=== PATIENT | female | born 1980 | race Caucasian/White ===

== ENCOUNTER 2016-12-04 10:39 | Emergency (ER) | payer OTHER ==
[2016-12-04] MEDS ORDERED: KETOROLAC 60 MG/2 ML VIAL IM STA (11:25)
--- NOTE | 2016-12-04 11:43 | ED ---
Lower Extremity Injury HPI - General Chief Complaint: Extremity Injury, Lower Stated Complaint: fall/ right leg pain Time Seen by Provider: 12/04/16 10:59 Source: patient, RN notes reviewed Mode of arrival: ambulatory Limitations: no limitations - History of Present Illness Initial Comments: 36-year-old female presents to the emergency department with a chief complaint of right leg pain. Patient states that he tripped and fell last night and had pain to the right lower leg. Patient states since she's been feeling cracking popping noise into her right leg. Patient states she has tenderness along the right lateral aspect. Patient states it hurts to walk. Patient states that she is concerned so she thought that she should be evaluated. Patient is denying any other symptoms at this time. Patient denies any recent fever, chills , shortness of breath, chest pain, back pain, abdominal pain, nausea vomiting, numbness or tingling, dysuria or hematuria, constipation or diarrhea, headaches or visual changes, or any other current symptoms. - Related Data Home Medications Medication Instructions Recorded Confirmed Cephalexin [Keflex] 500 mg PO Q8HR 01/28/15 01/28/15 Levothyroxine Sodium [Synthroid] 75 mcg PO DAILY 01/28/15 01/28/15 Sertraline [Zoloft] 200 mg PO QAM 01/28/15 01/28/15 metFORMIN HCL [metFORMIN HCL ER] 1,000 mg PO AC-BID 01/28/15 01/28/15 Previous Rx's Medication Instructions Recorded HYDROcodone/APAP 5-325MG [Philip 1 each PO BID PRN #30 tab 01/31/15 5-325] Insulin NPH/Reg Insulin 70/30 30 unit SQ AC-BRKFST #2 vial 01/31/15 [humuLIN 70/30 VIAL] Sertraline [Zoloft] 200 mg PO QAM tab 01/31/15 Ibuprofen [Motrin] 600 mg PO Q6HR PRN #20 tab 12/04/16 Allergies Allergy/AdvReac Type Severity Reaction Status Date / Time adhesive AdvReac Unknown Verified 01/28/15 16:52 Review of Systems ROS Statement: Those systems with pertinent positive or pertinent negative responses have been documented in the HPI. ROS Other: All systems not noted in ROS Statement are negative. Past Medical History Past Medical History: Diabetes Mellitus, Pulmonary Embolus (PE), Thyroid Disorder Additional Past Medical History / Comment(s): morbid obesity, ABD HERNIA History of Any Multi-Drug Resistant Organisms: None Reported Past Surgical History: Section Additional Past Surgical History / Comment(s): 2 c-sections Past Anesthesia/Blood Transfusion Reactions: Motion Sickness Additional Past Anesthesia/Blood Transfusion Reaction / Comment(s): CLAUSTERPHOBIA Past Psychological History: Anxiety, Depression Smoking Status: Current every day smoker Past Alcohol Use History: Occasional Past Drug Use History: None Reported - Past Family History Mother Additional Family Medical History / Comment(s): MIGRAINES, HAS WATER ON HER BRAIN Father History Unknown: Yes Additional Family Medical History / Comment(s): PTS DAD WHEN SHE WAS 13 General Exam - General Exam Comments Initial Comments: General: The patient is awake and alert, in no distress, and does not appear acutely ill. Neck: The neck is supple, there is no tenderness. Cardiovascular: There is a regular rate and rhythm. No murmur, rub or gallop is appreciated. Respiratory: Lungs are clear to auscultation, respirations are non-labored, breath sounds are equal. No wheezes, stridor, rales, or rhonchi. Musculoskeletal: Sensation intact with full range of motion throughout right lower extremity. Fund motion of right ankle knee. Find motion of the right hip. Tenderness patient along the lateral aspect of the right lower extremity. No tenderness patient in the lumbar spine area. No bruising noted. Neurological: CN II-XII intact, There are no obvious motor or sensory deficits. Coordination appears grossly intact. Speech is normal. Skin: Skin is warm and dry and no rashes or lesions are noted. Psychiatric: Normal mood and affect. Limitations: no limitations Course Vital Signs 12/04/16 10:43 Temperature 98 F Pulse Rate 88 Respiratory 22 Rate Blood Pressure 150/87 O2 Sat by Pulse 98 Oximetry Medical Decision Making - Medical Decision Making 36-year-old female presents emergency 5 chief complaint of right leg pain. At this time patient's x-rays are reviewed and negative. This time we discussed continuing to ice Motrin Tylenol. We discussed return parameters and follow-up and all the patient's questions. She stated that she understood and she is given plan. She will be discharged home. - Radiology Data Radiology results: report reviewed, image reviewed Disposition Clinical Impression: Sprain of right hip Disposition: HOME SELF-CARE Condition: Stable Instructions: Hip Sprain (ED) Additional Instructions: Please use medication as discussed. Please follow up with family doctor if symptoms have not improved over the next two days. Please return to the emergency room if your symptoms increase or worsen or for any other concerns. Prescriptions: Ibuprofen [Motrin] 600 mg PO Q6HR PRN #20 tab PRN Reason: Pain Referrals: Lg Moran MD [Primary Care Provider] - 1-2 days Time of Disposition: 12:17
--- NOTE | 2016-12-04 11:54 | XR ---
EXAMINATION TYPE: XR lumbar spine 2 or 3V DATE OF EXAM: 12/04/2016 COMPARISON: 06/24/2015 HISTORY: Pain TECHNIQUE: Three-view lumbar spine FINDINGS: There 5 lumbar-type vertebral bodies. The pedicles are intact. Minimal grade 1 spondylolist hesis of L4 anterior and L5 is present. Disc heights are preserved. Vertebral body heights are preser lon. IMPRESSION: 1. Mild grade 1 spondylolisthesis of L4 anterior to L5. 2. Findings are stable from 06/24/2015. 3. No acute abnormality.
--- NOTE | 2016-12-04 11:57 | XR ---
EXAMINATION TYPE: XR knee complete RT DATE OF EXAM: 12/04/2016 COMPARISON: NONE HISTORY: Pain, fall TECHNIQUE: Three-view right knee FINDINGS: No acute fractures are evident. Soft tissues are normal. No joint effusion is evident. IMPRESSION: 1. Normal three-view right knee. Follow-up exam can be performed 7-10 days from acute trauma for con tinued pain.
--- NOTE | 2016-12-04 11:57 | XR ---
EXAMINATION TYPE: XR femur RT DATE OF EXAM: 12/04/2016 COMPARISON: NONE HISTORY: Fall, pain TECHNIQUE: 2 view right femur FINDINGS: Osteoarthritic degenerative changes present at the right hip. Acetabular spurring is presen t. The femoral head articulates with the acetabulum. No acute fractures evident. IMPRESSION: 1. Degenerative changes right hip. 2. No acute osseous abnormality.
[2016-12-04 12:27] VITALS: BP 161/84; PULSE 75; RESP 20; TEMP 97.8
== END 2016-12-04 12:27 | disposition home or self-care (01) ==
LOC: EC 10:39
DX: S73.101A Unspecified sprain of right hip, initial encounter (principal); E11.9 Type 2 diabetes mellitus without complications; E07.9 Disorder of thyroid, unspecified; F32.9 Major depressive disorder, single episode, unspecified; F17.200 Nicotine dependence, unspecified, uncomplicated; Z91.048 Other nonmedicinal substance allergy status; Z79.84 Long term (current) use of oral hypoglycemic drugs; Z79.899 Other long term (current) drug therapy; W01.0XXA Fall on same level from slipping, tripping and stumbling without subsequent striking against object, initial encounter
CPT/HCPCS: 99283; 96372; 72100; 73552; 73562; J1885

== ENCOUNTER → 2017-10-10 | Outpatient (CLI) | payer OTHER ==
[2017-10-10 18:55] LABS: Hemoglobin A1C 13.7 % (4.0-6.0)
== END | disposition home or self-care (01) ==
LOC: LABWHC1 08:44
PROVIDERS: ATTEND Internal Medicine
DX: E11.9 Type 2 diabetes mellitus without complications (principal)
CPT/HCPCS: 36415; 80061; 83036; 84439; 84443

== ENCOUNTER → 2018-01-17 | Outpatient (CLI) | payer OTHER ==
[2018-01-17 08:09] LABS: T4, Free (Free Thyroxine) 0.92 ng/dL (0.78-2.19)
[2018-01-17 12:15] LABS: Hemoglobin A1C 7.9 % (4.0-6.0)
== END | disposition home or self-care (01) ==
LOC: LABWHC1 07:22
PROVIDERS: ATTEND Internal Medicine
DX: E11.9 Type 2 diabetes mellitus without complications (principal)
CPT/HCPCS: 36415; 83036; 84439; 84443

== ENCOUNTER 2018-05-19 17:15 | Emergency (ER) | payer OTHER ==
[2018-05-19] MEDS ORDERED: ONDANSETRON 4 MG/2 ML VIAL IVP STA (17:52)
[2018-05-19] MEDS ORDERED: SODIUM CHLORIDE 0.9% 1,000 ML IV ONE (17:52)
[2018-05-19] MEDS ORDERED: KETOROLAC 30 MG/ML 1 ML VIAL IVP STA (17:52)
[2018-05-19] MEDS ORDERED: MORPHINE SULFATE 4 MG/ML SYRINGE IVP STA (17:52)
--- NOTE | 2018-05-19 18:13 | ED ---
General Adult HPI - General Chief complaint: Recheck/Abnormal Lab/Rx Stated complaint: blood sugar problems & hand injury Time Seen by Provider: 05/19/18 17:32 Source: patient Mode of arrival: wheelchair Limitations: no limitations - History of Present Illness Initial comments: 38-year-old female patient presents to the emergency department today with multiple complaints. Patient states that she has been dealing with the yeast infection for the last couple of weeks, states that she did take a dose of Diflucan a couple days ago, symptoms seem to have improved somewhat. Patient states that her couple of days ago she noticed pain and swelling to the right labia. States that today the area started to drain purulent foul-smelling fluid. States that the area is very painful makes it difficult to sit or walk. States that she has felt feverish and chilled, she has no documented temperatures. She states also that today her glucometer at home was reading an error which means her blood sugar is very high. She states that she has been out of her insulin since March. States she has been taking her metformin but that she's been mostly attempting to control her sugar with diet. Patient states she's been fasting for the last couple of days and eating only very small amounts. She states that couple of weeks ago she did fall down the stairs injuring her left hand and wrist. Patient states she is still having pain to the area. Patient states it hurts when she hyperextends the wrist. She denies any numbness or tingling. Denies any other injuries from the fall. She denies any hematuria, dysuria, urinary frequency, urinary urgency. She denies any nausea or vomiting. Patient denies any recent rash, shortness breath , chest pain, diarrhea, constipation, back pain, numbness, tingling, dizziness, weakness, headache, visual changes, or any other complaints. - Related Data Home Medications Medication Instructions Recorded Confirmed Levothyroxine Sodium [Synthroid] 75 mcg PO DAILY 01/28/15 05/19/18 metFORMIN HCL [metFORMIN HCL ER] 1,000 mg PO AC-BID 01/28/15 05/19/18 Cyclobenzaprine [Flexeril] 10 mg PO TID 05/19/18 05/19/18 Fluconazole [Diflucan] 150 mg PO ONCE 05/19/18 05/19/18 Omeprazole 40 mg PO DAILY 05/19/18 05/19/18 Allergies Allergy/AdvReac Type Severity Reaction Status Date / Time adhesive AdvReac Unknown Verified 05/19/18 18:23 Review of Systems ROS Statement: Those systems with pertinent positive or pertinent negative responses have been documented in the HPI. ROS Other: All systems not noted in ROS Statement are negative. Past Medical History Past Medical History: Diabetes Mellitus, Pulmonary Embolus (PE), Thyroid Disorder Additional Past Medical History / Comment(s): morbid obesity, ABD HERNIA History of Any Multi-Drug Resistant Organisms: None Reported Past Surgical History: Section Additional Past Surgical History / Comment(s): 2 c-sections Past Anesthesia/Blood Transfusion Reactions: Motion Sickness Additional Past Anesthesia/Blood Transfusion Reaction / Comment(s): CLAUSTERPHOBIA Past Psychological History: Anxiety, Depression Smoking Status: Current every day smoker Past Alcohol Use History: Occasional Past Drug Use History: None Reported - Past Family History Mother Additional Family Medical History / Comment(s): MIGRAINES, HAS WATER ON HER BRAIN Father History Unknown: Yes Additional Family Medical History / Comment(s): PTS DAD WHEN SHE WAS 13 General Exam Limitations: no limitations General appearance: alert, in no apparent distress, other (This is a well- developed, well-nourished adult female patient in no acute distress. Vital signs upon presentation are temperature 98.3F, pulse 119, respirations 18, blood pressure 161/91 9, pulse ox 96% on room air.) Eye exam: Present: normal appearance, PERRL, EOMI. Absent: scleral icterus, conjunctival injection, periorbital swelling ENT exam: Present: normal exam, normal oropharynx, mucous membranes moist Respiratory exam: Present: normal lung sounds bilaterally. Absent: respiratory distress, wheezes, rales, rhonchi, stridor Cardiovascular Exam: Present: normal rhythm, tachycardia, normal heart sounds. Absent: systolic murmur, diastolic murmur, rubs, gallop, clicks GI/Abdominal exam: Present: soft, normal bowel sounds. Absent: distended, tenderness, guarding, rebound, rigid Extremities exam: Present: full ROM, normal capillary refill, other (Skin to the left hand and wrist is pink, warm, and dry. Cap refills less than 3 seconds. Radial pulses 2+ and equal bilaterally. Patient does have some tenderness over the fourth and fifth MCP joints.). Absent: normal inspection, tenderness, pedal edema, joint swelling, calf tenderness Neurological exam: Present: alert, oriented X3, CN II-XII intact Psychiatric exam: Present: normal affect, normal mood Skin exam: Present: warm, dry, intact, normal color. Absent: rash Expanded Type of lesion: Present: abscess (There is large abscess over the right upper thigh, parent Octavio area extending up into the right labia. There is erythema. There is a central opening draining purulent foul-smelling fluid. There is central area of tissue necrosis. Area is very tender to touch.) Course Vital Signs 05/19/18 05/19/18 05/19/18 17:24 20:06 22:00 Temperature 98.3 F 98.1 F Pulse Rate 119 H 55 L 87 Respiratory 18 20 20 Rate Blood Pressure 161/99 108/70 133/78 O2 Sat by Pulse 96 100 96 Oximetry Medical Decision Making - Medical Decision Making 38-year-old female patient presented to the emergency department today for multiple complaints. Complaints include an elevated blood sugar, infection to the right groin, and left hand and wrist pain. Physical examination did reveal large abscess to the right upper thigh, perineal area, extending up to the right labia. There was a foul-smelling drainage. There was central area of necrosis. Labs reviewed and did reveal elevated white blood cell count of 14.4 , neutrophil count 12.1, sodium 129, chloride 94, carbon dioxide 17, anion gap of 18, glucose 581, acetone positive. Did perform x-ray of the left hand and wrist which were negative for any fractures. Did perform CT of the pelvis with contrast to further evaluate area of infection, this did reveal subcutaneous fat stranding on the upper thigh extending up into the labia, lower extent of the infection was not visualized on the CT. There was subcutaneous fat. Given that white blood cell count, amount of pain, and findings on CT there is concern for necrotizing fasciitis. Patient was started on vancomycin and Zosyn. We did start insulin drip for DKA. Patient will be transferred to [facility] for further evaluation of this infection and surgical consult. Patient was updated regarding all findings and is agreeable. - Lab Data Result diagrams: 05/19/18 18:36 05/19/18 18:36 Lab Results 05/19/18 05/19/18 05/19/18 Range/Units 18:36 18:36 19:06 WBC 14.4 H (3.8-10.6) k/uL RBC 4.25 (3.80-5.40) m/uL Hgb 11.8 (11.4-16.0) gm/dL Hct 38.7 (34.0-46.0) % MCV 91.1 (80.0-100.0) fL MCH 27.9 (25.0-35.0) pg MCHC 30.6 L (31.0-37.0) g/dL RDW 13.8 (11.5-15.5) % Plt Count 355 (150-450) k/uL Neutrophils % 84 % Lymphocytes % 9 % Monocytes % 5 % Eosinophils % 1 % Basophils % 0 % Neutrophils # 12.1 H (1.3-7.7) k/uL Lymphocytes # 1.2 (1.0-4.8) k/uL Monocytes # 0.7 (0-1.0) k/uL Eosinophils # 0.2 (0-0.7) k/uL Basophils # 0.0 (0-0.2) k/uL Hypochromasia Moderate Sodium 129 L (137-145) mmol/L Potassium 4.3 (3.5-5.1) mmol/L Chloride 94 L (98-107) mmol/L Carbon Dioxide 17 L (22-30) mmol/L Anion Gap 18 mmol/L BUN 11 (7-17) mg/dL Creatinine 1.02 (0.52-1.04) mg/dL Est GFR (CKD-EPI)AfAm 82 (>60 ml/min/1.73 sqM) Est GFR (CKD-EPI)NonAf 71 (>60 ml/min/1.73 sqM) Glucose 581 H* (74-99) mg/dL POC Glucose (mg/dL) 575 H (75-99) mg/dL POC Glu Tugger Operator ID Jyotsna [place] Calcium 9.0 (8.4-10.2) mg/dL Total Bilirubin 0.7 (0.2-1.3) mg/dL AST 17 (14-36) U/L ALT 11 (9-52) U/L Alkaline Phosphatase 141 H (38-126) U/L Total Protein 6.5 (6.3-8.2) g/dL Albumin 3.2 L (3.5-5.0) g/dL Acetone, Qual Positive (Negative) 05/19/18 Range/Units 21:05 WBC (3.8-10.6) k/uL RBC (3.80-5.40) m/uL Hgb (11.4-16.0) gm/dL Hct (34.0-46.0) % MCV (80.0-100.0) fL MCH (25.0-35.0) pg MCHC (31.0-37.0) g/dL RDW (11.5-15.5) % Plt Count (150-450) k/uL Neutrophils % % Lymphocytes % % Monocytes % % Eosinophils % % Basophils % % Neutrophils # (1.3-7.7) k/uL Lymphocytes # (1.0-4.8) k/uL Monocytes # (0-1.0) k/uL Eosinophils # (0-0.7) k/uL Basophils # (0-0.2) k/uL Hypochromasia Sodium (137-145) mmol/L Potassium (3.5-5.1) mmol/L Chloride (98-107) mmol/L Carbon Dioxide (22-30) mmol/L Anion Gap mmol/L BUN (7-17) mg/dL Creatinine (0.52-1.04) mg/dL Est GFR (CKD-EPI)AfAm (>60 ml/min/1.73 sqM) Est GFR (CKD-EPI)NonAf (>60 ml/min/1.73 sqM) Glucose (74-99) mg/dL POC Glucose (mg/dL) 557 H (75-99) mg/dL POC Glu Tugger Operator ID Arft, Ramakrishna Calcium (8.4-10.2) mg/dL Total Bilirubin (0.2-1.3) mg/dL AST (14-36) U/L ALT (9-52) U/L Alkaline Phosphatase (38-126) U/L Total Protein (6.3-8.2) g/dL Albumin (3.5-5.0) g/dL Acetone, Qual (Negative) - Radiology Data Radiology results: report reviewed, image reviewed CT pelvis with contrast was obtained. Report was reviewed in its entirety. There is soft tissue air bubbles and fat stranding in the medial upper right thigh extending to the right side labia consistent with inflammatory phlegmon and infectious process. No drainable fluid collection. The lower extent of this is not demonstrated on this exam. Broad-based large lower abdominal ventral hernia. Dilated urinary bladder suggestive of chronic bladder outlet obstruction Complete left wrist x-ray was obtained, 4 views, there is no fracture or dislocation. Joint spaces are fairly normal. There is no erosions. Impression by Dr. Clancy shows negative left wrist exam. No fracture seen 3 views of the left hand are obtained. These no fracture or dislocation. Metacarpals are intact. Joint spaces are fairly normal. There are no erosions. Impression by Dr. Clancy shows negative left hand exam. No sign of inflammatory arthritis Disposition Clinical Impression: DKA (diabetic ketoacidoses), Necrotizing fasciitis Disposition: OTHER INSTITUTION NOT DEFINED Condition: Serious Referrals: Carmelita Olivas MD [Primary Care Provider] - 1-2 days - Out of Hospital Transfer - Req. Specs Out of Hospital Transfer - Requested Specifics: Other Emergency Center ([facility])
--- NOTE | 2018-05-19 18:27 | XR ---
EXAMINATION TYPE: XR wrist complete LT DATE OF EXAM: 05/19/2018 COMPARISON: NONE HISTORY: Wrist pain TECHNIQUE: 4 views FINDINGS: I see no fracture nor dislocation. Joint spaces are fairly normal. There are no erosions. IMPRESSION: Negative left wrist exam. No fracture seen.
--- NOTE | 2018-05-19 18:28 | XR ---
EXAMINATION TYPE: XR hand complete LT DATE OF EXAM: 05/19/2018 COMPARISON: NONE HISTORY: Pain TECHNIQUE: 3 views FINDINGS: I see no fracture nor dislocation. Metacarpals are intact. Joint spaces are fairly normal. There are no erosions. IMPRESSION: Negative left hand exam. No sign of inflammatory arthritis.
[2018-05-19] MEDS ORDERED: VANCOMYCIN IV PER PHARMACY 1 EACH MISC MISCELLANE PRN (18:55)
[2018-05-19] MEDS ORDERED: VANCOMYCIN 2,250 MG in SODIUM CHLORIDE 0.9% 500 ML 500 ML IVPB STA (18:59)
[2018-05-19 19:06] LABS: Glucose,Whole Blood 575 mg/dL (75-99)
[2018-05-19] MEDS ORDERED: INSULIN ASPART 100 UNIT/ML 1 ML 10 ML VIAL SQ STA (19:07)
[2018-05-19 19:32] LABS: Basophils % (A) 0 %; Eosinophils # (A) 0.2 k/uL (0-0.7); Eosinophils % (A) 1 %; HCT 38.7 % (34.0-46.0); HGB 11.8 gm/dL (11.4-16.0); Hypochromasia Moderate; Lymphocytes # (A) 1.2 k/uL (1.0-4.8); Lymphocytes % (A) 9 %; MCH 27.9 pg (25.0-35.0); MCHC 30.6 g/dL (31.0-37.0); MCV 91.1 fL (80.0-100.0); Mean Platelet Volume 8.4; Monocytes # (A) 0.7 k/uL (0-1.0); Monocytes % (A) 5 %; Neutrophils # (A) 12.1 k/uL (1.3-7.7); Neutrophils % (A) 84 %; Platelet Count 355 k/uL (150-450); RBC 4.25 m/uL (3.80-5.40); RDW 13.8 % (11.5-15.5); WBC 14.4 k/uL (3.8-10.6)
[2018-05-19 19:39] LABS: ALT 11 U/L (9-52); AST 17 U/L (14-36); Albumin 3.2 g/dL (3.5-5.0); Alkaline Phosphatase 141 U/L (38-126); Anion Gap 18 mmol/L; Blood Urea Nitrogen 11 mg/dL (7-17); Carbon Dioxide 17 mmol/L (22-30); Chloride 94 mmol/L (98-107); Potassium 4.3 mmol/L (3.5-5.1); Sodium 129 mmol/L (137-145); Total Bilirubin 0.7 mg/dL (0.2-1.3); Total Protein 6.5 g/dL (6.3-8.2)
[2018-05-19] MEDS ORDERED: SODIUM CHLORIDE 0.9% 500 ML 500 ML IV ONE (19:44)
[2018-05-19 19:46] LABS: Glucose 581 mg/dL (74-99)
[2018-05-19 20:08] VITALS: RESP 20; TEMP 98.1
[2018-05-19] MEDS ORDERED: NALOXONE 0.4 MG/ML 1 ML VIAL IV PRN (20:15)
[2018-05-19] MEDS ORDERED: ACETAMINOPHEN TAB 325 MG TAB PO PRN (20:15)
[2018-05-19] MEDS ORDERED: MORPHINE SULFATE 4 MG/ML SYRINGE IV PRN (20:15)
[2018-05-19] MEDS ORDERED: ONDANSETRON 4 MG/2 ML VIAL IVP PRN (20:15)
[2018-05-19 21:06] LABS: Glucose,Whole Blood 557 mg/dL (75-99)
[2018-05-19] MEDS ORDERED: Magnesium Replacement Protocol 1 EACH MISC MISCELLANE PRN (21:31)
[2018-05-19] MEDS ORDERED: INSULIN REGULAR BOLUS (FROM DRIP BAG) IV ONE (21:31)
[2018-05-19] MEDS ORDERED: Potassium Replacement Protocol 1 EACH MISC MISCELLANE PRN (21:31)
--- NOTE | 2018-05-19 21:32 | CT ---
EXAMINATION TYPE: CT pelvis w con DATE OF EXAM: 05/19/2018 COMPARISON: None HISTORY: perineal abscess CT DLP: 1684 mGycm Automated exposure control for dose reduction was used. CONTRAST: Performed with IV Contrast, patient injected with 100 mL of Isovue 300. FINDINGS: Images were obtained from the iliac crests to the floor the pelvis with intravenous contrast. There is soft tissue air in the subcutaneous fat involving the medial right upper thigh extending to the labia on the right side. The lower extent of the soft tissue air is not demonstrated. There is fa t stranding associated with the soft tissue air bubbles. There is no drainable fluid collection. There is anterior abdominal wall hernia with panniculus and intestines extending inferiorly to the pu bic symphysis. There is no inguinal hernia. There is no free fluid in the pelvis. Bladder distends sm oothly. Urinary bladder is dilated and measures 18.7 cm in length. I see no bony destructive process. The pelvic ring is intact. IMPRESSION: THERE IS SOFT TISSUE AIR BUBBLES AND FAT STRANDING IN THE MEDIAL UPPER RIGHT THIGH EXTENDING TO THE R IGHT SIDE LABIA CONSISTENT WITH INFLAMMATORY PHLEGMON AND INFECTIOUS PROCESS. NO DRAINABLE FLUID NIDIA ECTION. THE LOWER EXTENT OF THIS IS NOT DEMONSTRATED ON THIS EXAM. BROAD-BASED LARGE LOWER ABDOMINAL VENTRAL HERNIA. DILATED URINARY BLADDER IS SUGGESTIVE OF CHRONIC BLADDER OUTLET OBSTRUCTION.
[2018-05-19] MEDS ORDERED: SODIUM CHLORIDE 0.9% 1,000 ML IV SCH (21:45)
[2018-05-19] MEDS ORDERED: D5-0.45% NACL WITH KCL 20MEQ/L 1,000 ML IV SCH (21:45)
[2018-05-19] MEDS ORDERED: CYCLOBENZAPRINE 10 MG TAB PO SCH (22:00)
[2018-05-19] MEDS ORDERED: PIPERACILLIN-TAZOBACTAM 3.375 GM in SODIUM CHLORIDE 0.9% 100 ML IVPB STA (22:16)
[2018-05-19] MEDS ORDERED: INSULIN REGULAR 100 UNIT in SODIUM CHLORIDE 0.9% 100 ML IV SCH (22:30)
[2018-05-19 23:15] VITALS: BP 133/78; PULSE 87
[2018-05-20] MEDS ORDERED: NON-FORMULARY DRUG (Omeprazole [Omeprazole] 40 MG) PO SCH (09:00)
[2018-05-20] MEDS ORDERED: LEVOTHYROXINE 75 MCG TAB PO SCH (09:00)
[2018-05-20] MEDS ORDERED: VANCOMYCIN 2,500 MG in SODIUM CHLORIDE 0.9% 500 ML 500 ML IVPB SCH (10:00)
== END 2018-05-19 23:21 | disposition other institution (70) ==
LOC: EC 17:15
DX: E11.10 Type 2 diabetes mellitus with ketoacidosis without coma (principal); M72.6 Necrotizing fasciitis; M25.532 Pain in left wrist; M79.642 Pain in left hand; D72.829 Elevated white blood cell count, unspecified; E07.9 Disorder of thyroid, unspecified; F17.200 Nicotine dependence, unspecified, uncomplicated; E66.01 Morbid (severe) obesity due to excess calories; Z68.44 Body mass index [BMI] 60.0-69.9, adult; Z79.84 Long term (current) use of oral hypoglycemic drugs; Z79.899 Other long term (current) drug therapy; Z91.048 Other nonmedicinal substance allergy status; W10.9XXA Fall (on) (from) unspecified stairs and steps, initial encounter
CPT/HCPCS: 36415; 80053; 82009; 85025; 87040; 87070; 87205; 73110; 73130; 72193; 99284; 96365; 96366 ×2; 96368; 96375 ×3; 96361; J2543; J3370; J2270; J2405; J1885; Q9967; 87077; 87186

== ENCOUNTER → 2018-06-27 | Outpatient (CLI) | payer OTHER ==
[2018-06-27 19:54] LABS: Hemoglobin A1C 9.4 % (4.0-6.0)
[2018-06-27 20:13] LABS: T4, Free (Free Thyroxine) 1.1 ng/dL (0.80-1.80)
== END | disposition home or self-care (01) ==
LOC: LABWHC1 10:39
PROVIDERS: ATTEND Internal Medicine
DX: E11.9 Type 2 diabetes mellitus without complications (principal)
CPT/HCPCS: 36415; 83036; 84439; 84443

== ENCOUNTER 2018-06-30 12:10 | Emergency (ER) | payer OTHER ==
[2018-06-30 12:25] VITALS: TEMP 98.1
--- NOTE | 2018-06-30 13:27 | ED ---
General Adult HPI - General Source: patient, RN notes reviewed Mode of arrival: ambulatory Limitations: no limitations <Bear Mendieta - Last Filed: 06/30/18 15:14> <Merlin Franco - Last Filed: 06/30/18 15:25> - General Chief complaint: Shortness of Breath Stated complaint: SOB Time Seen by Provider: 06/30/18 12:39 - History of Present Illness Initial comments: 38-year-old female with a past medical history of diabetes, thyroid disorder, pulmonary embolism s/p section presents to the emergency department for a chief complaint of shortness of breath 24 hours. Patient states this started over the course of yesterday morning. She states she feels like she cannot take a full breath. She denies chest pain but does admit to right shoulder and scapular pain. Patient states this pain is worsened by deep breathing. Patient states she has had wound debridement of the groin one month ago. No other surgeries since that time. Patient denies any leg swelling or pain. Patient has no other complaints at this time including chest pain, abdominal pain, nausea or vomiting, headache, or visual changes. (Bear Mendieta) - Related Data Home Medications Medication Instructions Recorded Confirmed Levothyroxine Sodium [Synthroid] 75 mcg PO DAILY 01/28/15 06/30/18 metFORMIN HCL [metFORMIN HCL ER] 1,000 mg PO AC-BID 01/28/15 06/30/18 Cyclobenzaprine [Flexeril] 10 mg PO DAILY PRN 05/19/18 06/30/18 Omeprazole 40 mg PO DAILY 05/19/18 06/30/18 Insulin Glargine [Lantus] 40 unit SQ AC-TID 06/27/18 06/30/18 Insulin Lispro [Admelog] 14 unit SQ AC-TID 06/27/18 06/30/18 Allergies Allergy/AdvReac Type Severity Reaction Status Date / Time adhesive AdvReac Unknown Verified 06/30/18 12:25 Review of Systems ROS Other: All systems not noted in ROS Statement are negative. <Bear Mendieta - Last Filed: 06/30/18 15:14> ROS Other: All systems not noted in ROS Statement are negative. <Merlin Franco - Last Filed: 06/30/18 15:25> ROS Statement: Those systems with pertinent positive or pertinent negative responses have been documented in the HPI. Past Medical History Past Medical History: Diabetes Mellitus, Pulmonary Embolus (PE), Thyroid Disorder Additional Past Medical History / Comment(s): morbid obesity, ABD HERNIA, '' FLESH EATING DISEASE'' History of Any Multi-Drug Resistant Organisms: None Reported Past Surgical History: Section Additional Past Surgical History / Comment(s): 2 c-sections, surgical debridement of buttocks Past Anesthesia/Blood Transfusion Reactions: Motion Sickness Additional Past Anesthesia/Blood Transfusion Reaction / Comment(s): CLAUSTERPHOBIA Past Psychological History: Anxiety, Depression Smoking Status: Current every day smoker Past Alcohol Use History: None Reported Past Drug Use History: None Reported - Past Family History Mother Additional Family Medical History / Comment(s): MIGRAINES, HAS WATER ON HER BRAIN Father History Unknown: Yes Additional Family Medical History / Comment(s): PTS DAD WHEN SHE WAS 13 <Bear Mendieta P - Last Filed: 06/30/18 15:14> General Exam Limitations: no limitations General appearance: alert, in no apparent distress Head exam: Present: atraumatic, normocephalic, normal inspection Eye exam: Present: normal appearance, PERRL, EOMI. Absent: scleral icterus, conjunctival injection, periorbital swelling ENT exam: Present: normal exam, mucous membranes moist Neck exam: Present: normal inspection, full ROM. Absent: tenderness, meningismus, lymphadenopathy Respiratory exam: Present: normal lung sounds bilaterally, other (limited by body habitus). Absent: respiratory distress, wheezes, rales, rhonchi, stridor, chest wall tenderness Cardiovascular Exam: Present: regular rate, normal rhythm, normal heart sounds. Absent: systolic murmur, diastolic murmur, rubs, gallop, clicks Extremities exam: Absent: calf tenderness (neg karly sign bilat, no erythema or edema) Neurological exam: Present: alert, oriented X3, CN II-XII intact Psychiatric exam: Present: normal affect, normal mood <Bear Mendieta P - Last Filed: 06/30/18 15:14> Vital Signs 06/30/18 06/30/18 12:21 12:32 Temperature 98.1 F Pulse Rate 113 H Respiratory 24 Rate Blood Pressure 143/95 O2 Sat by Pulse 98 99 Oximetry EKG Findings - EKG Comments: EKG Findings:: Sinus tachycardia with a ventricular rate of 101, SD interval 150 , QTC 505, QRS duration 86 <Bear Mendieta - Last Filed: 06/30/18 15:14> Medical Decision Making - Lab Data Result diagrams: 06/30/18 13:15 06/30/18 13:15 <Bear Mendieta - Last Filed: 06/30/18 15:14> - Lab Data Result diagrams: 06/30/18 13:15 06/30/18 13:15 <Merlin Franco - Last Filed: 06/30/18 15:25> - Medical Decision Making 38-year-old female presents to the emergency department for chief shortness of breath 24 hours. Patient does have history of PE. Patient states she had a surgery 1 month ago. On exam she does not have any difficulty breathing, respirations even and unlabored. Patient does have mild tachycardia initially 113 which then decreased to 101 on her EKG. CBC CMP unremarkable. D-dimer 5.99. CT PE was ordered at this time. senior technical support analyst called at 1500 for positive saddle PE, heparin started immediately after receiving this phone call and Dr. Franco notified. Troponin 0.017, BNP 4540. Patient has had a tubal ligation. Patient reevaluated currently stable. (Bear Mendieta) I review angiography, large saddle embolism. I discussed case with the radiologist, does not feel there is right heart strain reflux. Patient does have mildly elevated troponin 0.017, positive nitrate peptide. She is hemodynamically stable, oxygenating well on room air. She is initiated on heparin. I discussed case with the vascular surgeon at [facility] Dr. Turner, and the ER physician Dr. Hurley. Patient is likely candidate for embolectomy. Both physicians will accept. (Merlin Franco) - Lab Data Lab Results 06/30/18 06/30/18 06/30/18 Range/Units 13:15 13:15 13:15 WBC 11.6 H (3.8-10.6) k/uL RBC 3.81 (3.80-5.40) m/uL Hgb 10.0 L (11.4-16.0) gm/dL Hct 32.5 L (34.0-46.0) % MCV 85.2 (80.0-100.0) fL MCH 26.2 (25.0-35.0) pg MCHC 30.8 L (31.0-37.0) g/dL RDW 15.2 (11.5-15.5) % Plt Count 376 (150-450) k/uL Neutrophils % 72 % Lymphocytes % 20 % Monocytes % 4 % Eosinophils % 3 % Basophils % 0 % Neutrophils # 8.4 H (1.3-7.7) k/uL Lymphocytes # 2.3 (1.0-4.8) k/uL Monocytes # 0.4 (0-1.0) k/uL Eosinophils # 0.3 (0-0.7) k/uL Basophils # 0.0 (0-0.2) k/uL Hypochromasia Marked Poikilocytosis Slight PT (9.0-12.0) sec INR (<1.2) APTT (22.0-30.0) sec D-Dimer (<0.60) mg/L FEU Sodium 138 (137-145) mmol/L Potassium 5.0 (3.5-5.1) mmol/L Chloride 109 H (98-107) mmol/L Carbon Dioxide 22 (22-30) mmol/L Anion Gap 7 mmol/L BUN 13 (7-17) mg/dL Creatinine 1.25 H (0.52-1.04) mg/dL Est GFR (CKD-EPI)AfAm 64 (>60 ml/min/1.73 sqM) Est GFR (CKD-EPI)NonAf 55 (>60 ml/min/1.73 sqM) Glucose 142 H (74-99) mg/dL Calcium 9.3 (8.4-10.2) mg/dL Total Bilirubin 0.6 (0.2-1.3) mg/dL AST 25 (14-36) U/L ALT 20 (9-52) U/L Alkaline Phosphatase 92 (38-126) U/L Total Creatine Kinase 36 (30-135) U/L CK-MB (CK-2) 0.8 (0.0-2.4) ng/mL CK-MB (CK-2) Rel Index 2.2 Troponin I 0.017 (0.000-0.034) ng/mL NT-Pro-B Natriuret Pep pg/mL Total Protein 7.3 (6.3-8.2) g/dL Albumin 3.7 (3.5-5.0) g/dL 06/30/18 06/30/18 Range/Units 13:15 13:15 WBC (3.8-10.6) k/uL RBC (3.80-5.40) m/uL Hgb (11.4-16.0) gm/dL Hct (34.0-46.0) % MCV (80.0-100.0) fL MCH (25.0-35.0) pg MCHC (31.0-37.0) g/dL RDW (11.5-15.5) % Plt Count (150-450) k/uL Neutrophils % % Lymphocytes % % Monocytes % % Eosinophils % % Basophils % % Neutrophils # (1.3-7.7) k/uL Lymphocytes # (1.0-4.8) k/uL Monocytes # (0-1.0) k/uL Eosinophils # (0-0.7) k/uL Basophils # (0-0.2) k/uL Hypochromasia Poikilocytosis PT 9.9 (9.0-12.0) sec INR 0.9 (<1.2) APTT 23.7 (22.0-30.0) sec D-Dimer 5.99 H (<0.60) mg/L FEU Sodium (137-145) mmol/L Potassium (3.5-5.1) mmol/L Chloride (98-107) mmol/L Carbon Dioxide (22-30) mmol/L Anion Gap mmol/L BUN (7-17) mg/dL Creatinine (0.52-1.04) mg/dL Est GFR (CKD-EPI)AfAm (>60 ml/min/1.73 sqM) Est GFR (CKD-EPI)NonAf (>60 ml/min/1.73 sqM) Glucose (74-99) mg/dL Calcium (8.4-10.2) mg/dL Total Bilirubin (0.2-1.3) mg/dL AST (14-36) U/L ALT (9-52) U/L Alkaline Phosphatase (38-126) U/L Total Creatine Kinase (30-135) U/L CK-MB (CK-2) (0.0-2.4) ng/mL CK-MB (CK-2) Rel Index Troponin I (0.000-0.034) ng/mL NT-Pro-B Natriuret Pep 4540 pg/mL Total Protein (6.3-8.2) g/dL Albumin (3.5-5.0) g/dL Critical Care Time <Bear Mendieta - Last Filed: 06/30/18 15:14> Critical Care Time: Yes Total Critical Care Time: 35 <Merlin Franco - Last Filed: 06/30/18 15:25> Critical Care Time: Massive pulmonary embolism, saddle embolism. (Merlin Franco) Disposition Is patient prescribed a controlled substance at d/c from ED?: No Time of Disposition: 15:13 - Out of Hospital Transfer - Req. Specs Out of Hospital Transfer - Requested Specifics: Other Emergency Center ([facility]) <Bear Mendieta - Last Filed: 06/30/18 15:14> Is patient prescribed a controlled substance at d/c from ED?: No <Merlin Franco - Last Filed: 06/30/18 15:25> Clinical Impression: Pulmonary embolism Disposition: OTHER INSTITUTION NOT DEFINED Referrals: Carmelita Olivas MD [Primary Care Provider] - 1-2 days
[2018-06-30 13:33] LABS: Basophils % (A) 0 %; Eosinophils # (A) 0.3 k/uL (0-0.7); Eosinophils % (A) 3 %; HCT 32.5 % (34.0-46.0); Hypochromasia Marked; Lymphocytes # (A) 2.3 k/uL (1.0-4.8); Lymphocytes % (A) 20 %; MCH 26.2 pg (25.0-35.0); MCHC 30.8 g/dL (31.0-37.0); MCV 85.2 fL (80.0-100.0); Mean Platelet Volume 7.2; Monocytes # (A) 0.4 k/uL (0-1.0); Monocytes % (A) 4 %; Neutrophils # (A) 8.4 k/uL (1.3-7.7); Neutrophils % (A) 72 %; Platelet Count 376 k/uL (150-450); Poikilocytosis Slight; RBC 3.81 m/uL (3.80-5.40); RDW 15.2 % (11.5-15.5); WBC 11.6 k/uL (3.8-10.6)
[2018-06-30 13:41] LABS: Albumin 3.7 g/dL (3.5-5.0); Calcium 9.3 mg/dL (8.4-10.2); Total Bilirubin 0.6 mg/dL (0.2-1.3); Total Protein 7.3 g/dL (6.3-8.2)
[2018-06-30 14:06] LABS: INR 0.9 (<1.2); Partial Thromboplastin Time 23.7 sec (22.0-30.0); Prothrombin Time 9.9 sec (9.0-12.0)
--- NOTE | 2018-06-30 14:13 | XR ---
EXAMINATION TYPE: XR chest 2V DATE OF EXAM: 06/30/2018 COMPARISON: Prior chest x-ray dated 06/30/2009 HISTORY: Pain TECHNIQUE: Frontal and lateral views of the chest are obtained. FINDINGS: Patient is rotated. There is no focal air space opacity, pleural effusion, or pneumothorax seen. Bandlike area of increased attenuation seen on prior exam in the left lower lobe has resolved. The cardiac silhouette size is stable accounting for differences in technique, rotation. The osse ous structures are intact. IMPRESSION: No acute cardiopulmonary process.
[2018-06-30 14:15] LABS: Creatine Kinase MB 0.8 ng/mL (0.0-2.4); Troponin I 0.017 ng/mL (0.000-0.034)
[2018-06-30 14:17] LABS: D-Dimer 5.99 mg/L FEU (<0.60)
[2018-06-30] MEDS ORDERED: FUROSEMIDE 10 MG/ML 4 ML VIAL IV STA (14:49)
[2018-06-30] MEDS ORDERED: HEPARIN SODIUM,PORCINE 5,000 UNIT/ML 1 ML VIAL IV PRN (15:01)
[2018-06-30] MEDS ORDERED: HEPARIN SODIUM,PORCINE 10,000 UNIT/ML 1 ML VIAL IV ONE (15:01)
[2018-06-30] MEDS ORDERED: HEPARIN SOD,PORK IN 0.45% NACL 25,000 UNIT in 0.45% NACL 1 250ML.BAG IV SCH (15:15)
--- NOTE | 2018-06-30 15:34 | CT ---
CT CHEST FOR PULMONARY EMBOLISM. EXAMINATION TYPE: CT chest angio for PE DATE OF EXAM: 06/30/2018 INDICATION: Trouble breathing, family history of PE, recent surgery CT DLP: 1133.8 mGycm, Automated exposure control for dose reduction was used. CONTRAST: Patient injected with 80 mL of Isovue 370. COMPARISON: None TECHNIQUE: CT of the chest is performed on a spiral scan at 2 mm thick sections. Study is performed with intravenous contrast timed for evaluation for pulmonary embolism. This will limit additional po rtions of the evaluation. 3-D MIP images reconstructed by the technologist are reviewed on the compu ter in the coronal and sagittal planes. FINDINGS: There is a large saddle embolism extending across the main pulmonary artery bifurcation filling the m ain pulmonary arteries into the lower lobes some extension into the lingula and right middle lobe. Se ptum is midline. No bulging into the left ventricle is evident. No significant reflux into the proxim al inferior vena cava is evident. No mediastinal or hilar adenopathy enlarged by CT criteria is evident. The ascending aorta diameter at the level of the main pulmonary artery is 3.7 cm. The main pulmonary artery diameter at the bifur cation is 3.7 cm. Lung windows are clear. Limited CT section through the upper abdomen are unremarkable. Preliminary results were discussed with emergency room physician. IMPRESSIONS: 1. Large saddle embolism with obstruction of multiple lower and middle lobe arterial branches.
[2018-06-30 15:51] VITALS: BP 168/100; PULSE 89; RESP 20
== END 2018-06-30 16:11 | disposition other institution (70) ==
LOC: EC 12:10
DX: I26.99 Other pulmonary embolism without acute cor pulmonale (principal); E11.9 Type 2 diabetes mellitus without complications; E07.9 Disorder of thyroid, unspecified; E66.01 Morbid (severe) obesity due to excess calories; Z68.44 Body mass index [BMI] 60.0-69.9, adult; F17.200 Nicotine dependence, unspecified, uncomplicated; Z53.8 Procedure and treatment not carried out for other reasons; Z79.4 Long term (current) use of insulin; Z79.899 Other long term (current) drug therapy; Z91.048 Other nonmedicinal substance allergy status
CPT/HCPCS: 36415; 93005; 85379; 83880; 80053; 82550; 82553; 84484; 85025; 85610; 85730; 71046; 71275; 99291; 96365; 96376; J1644 ×2; Q9967

== ENCOUNTER → 2018-09-19 | Outpatient (CLI) | payer OTHER ==
[2018-09-19 16:16] LABS: Albumin 3.9 g/dL (3.80-4.90); Albumin/Globulin Ratio 1.56 (1.60-3.17); Anion Gap 8.5 mmol/L (4.00-12.00); Carbon Dioxide 26.5 mmol/L (21.6-31.8); Globulin 2.5 g/dL (1.6-3.3); Potassium 4.7 mmol/L (3.5-5.5); Total Bilirubin 0.3 mg/dL (0.2-1.2); Total Protein 6.4 g/dL (6.2-8.2)
[2018-09-19 16:20] LABS: T4, Free (Free Thyroxine) 0.9 ng/dL (0.80-1.80)
[2018-09-19 17:29] LABS: Hemoglobin A1C 7.8 % (4.0-6.0)
== END | disposition home or self-care (01) ==
LOC: LABWHC1 09:40
PROVIDERS: ATTEND Internal Medicine
DX: E11.9 Type 2 diabetes mellitus without complications (principal)
CPT/HCPCS: 36415; 80053; 80061; 83036; 84439; 84443

== ENCOUNTER → 2018-12-21 | Outpatient (CLI) | payer OTHER ==
[2018-12-21 18:59] LABS: Hemoglobin A1C 7.1 % (4.0-6.0)
== END | disposition home or self-care (01) ==
LOC: LAB 09:29
DX: E11.9 Type 2 diabetes mellitus without complications (principal)
CPT/HCPCS: 83036

== ENCOUNTER → 2019-02-23 | Outpatient (CLI) | payer OTHER ==
[2019-02-23 10:22] LABS: Anisocytosis Slight; HCT 35.2 % (34.0-46.0); HGB 11.2 gm/dL (11.4-16.0); Hypochromasia Moderate; MCH 24.8 pg (25.0-35.0); MCHC 31.8 g/dL (31.0-37.0); Mean Platelet Volume 6.8; Microcytosis Slight; Platelet Count 398 k/uL (150-450); RBC 4.52 m/uL (3.80-5.40); RDW 16.4 % (11.5-15.5); WBC 10.5 k/uL (3.8-10.6)
[2019-02-23 10:29] LABS: INR 0.8 (<1.2); Partial Thromboplastin Time 22.9 sec (22.0-30.0); Prothrombin Time 9.4 sec (9.0-12.0)
[2019-02-23 17:10] LABS: African American GFR (CKD) 73.8 (60.0-200.0); Albumin 4.2 g/dL (3.80-4.90); Albumin/Globulin Ratio 1.68 (1.60-3.17); Anion Gap 7.9 mmol/L (4.00-12.00); BUN/Creat Ratio 10.91 Ratio (12.00-20.00); Calcium 9.5 mg/dL (8.7-10.3); Carbon Dioxide 25.1 mmol/L (21.6-31.8); Globulin 2.5 g/dL (1.6-3.3); Potassium 4.8 mmol/L (3.5-5.5); Total Bilirubin 0.2 mg/dL (0.2-1.2); Total Protein 6.7 g/dL (6.2-8.2)
== END | disposition home or self-care (01) ==
LOC: LABWHC1 09:51
PROVIDERS: ATTEND Internal Medicine
DX: D64.9 Anemia, unspecified (principal); I82.409 Acute embolism and thrombosis of unspecified deep veins of unspecified lower extremity; E11.9 Type 2 diabetes mellitus without complications
CPT/HCPCS: 36415; 80053; 83540; 84439; 84443; 85027; 85610; 85730

== ENCOUNTER → 2019-05-01 | Outpatient (CLI) | payer OTHER ==
[2019-05-01 16:14] LABS: T4, Free (Free Thyroxine) 1.1 ng/dL (0.80-1.80)
[2019-05-01 18:50] LABS: Hemoglobin A1C 7.7 % (4.0-6.0)
== END | disposition home or self-care (01) ==
LOC: LABWHC1 08:45
PROVIDERS: ATTEND Internal Medicine
DX: E11.9 Type 2 diabetes mellitus without complications (principal); E03.9 Hypothyroidism, unspecified
CPT/HCPCS: 36415; 83036; 84439; 84443

== ENCOUNTER 2019-05-18 08:29 | Emergency (ER) | payer OTHER ==
--- NOTE | 2019-05-18 08:52 | ED ---
General Adult HPI - General Chief complaint: Extremity Injury, Lower Stated complaint: Knee swelling, fall Time Seen by Provider: 05/18/19 08:31 Source: patient, RN notes reviewed Mode of arrival: ambulatory Limitations: no limitations - History of Present Illness Initial comments: Patient is a pleasant 39-year-old female presenting to the emergency Department with complaints of left knee pain. Patient states she slipped and fell yesterday. Patient landed mostly on her left knee. Patient also cut herself with her hands. Patient states only mild discomfort of her hands. Patient states the pain is more severe. Patient is able to ambulate however has to keep her knee straight. No other area of injury of concern. No head injury or loss of consciousness. No weakness or loss of sensation. - Related Data Home Medications Medication Instructions Recorded Confirmed metFORMIN HCL [metFORMIN HCL ER] 1,000 mg PO AC-BID 01/28/15 05/18/19 Cyclobenzaprine [Flexeril] 10 mg PO TID 05/19/18 05/18/19 Aspirin EC [Ecotrin Low Dose] 81 mg PO DAILY 05/18/19 05/18/19 Citalopram Hydrobromide [CeleXA] 20 mg PO DAILY 05/18/19 05/18/19 Clopidogrel [Plavix] 75 mg PO DAILY 05/18/19 05/18/19 Ferrous Sulfate [Feosol] 325 mg PO DAILY 05/18/19 05/18/19 Insulin Glargine [Lantus] 30 unit SQ DAILY 05/18/19 05/18/19 Levothyroxine Sodium [Synthroid] 125 mcg PO DAILY 05/18/19 05/18/19 Omeprazole 20 mg PO BID 05/18/19 05/18/19 Semaglutide [Ozempic] 0.5 mg SQ WE 05/18/19 05/18/19 Allergies Allergy/AdvReac Type Severity Reaction Status Date / Time adhesive AdvReac Unknown Verified 05/18/19 09:00 Review of Systems ROS Statement: Those systems with pertinent positive or pertinent negative responses have been documented in the HPI. ROS Other: All systems not noted in ROS Statement are negative. Constitutional: Denies: fever Eyes: Denies: eye pain ENT: Denies: ear pain Respiratory: Denies: cough Cardiovascular: Denies: chest pain Endocrine: Denies: fatigue Gastrointestinal: Denies: abdominal pain Genitourinary: Denies: dysuria Musculoskeletal: Reports: as per HPI, arthralgia. Denies: back pain Neurological: Denies: headache Past Medical History Past Medical History: Diabetes Mellitus, Pulmonary Embolus (PE), Thyroid Disorder Additional Past Medical History / Comment(s): morbid obesity, ABD HERNIA, ''FLESH EATING DISEASE'' History of Any Multi-Drug Resistant Organisms: None Reported Past Surgical History: Section Additional Past Surgical History / Comment(s): 2 c-sections, surgical debridement of buttocks Past Anesthesia/Blood Transfusion Reactions: Motion Sickness Additional Past Anesthesia/Blood Transfusion Reaction / Comment(s): CLAUSTERPHOBIA Past Psychological History: Anxiety, Depression Smoking Status: Current every day smoker Past Alcohol Use History: Rare Past Drug Use History: None Reported - Past Family History Mother Additional Family Medical History / Comment(s): MIGRAINES, HAS WATER ON HER BRAIN Father History Unknown: Yes Additional Family Medical History / Comment(s): PTS DAD WHEN SHE WAS 13 General Exam Limitations: no limitations General appearance: alert, in no apparent distress Head exam: Present: normocephalic Eye exam: Present: normal appearance Neck exam: Present: normal inspection Respiratory exam: Present: normal lung sounds bilaterally Cardiovascular Exam: Present: regular rate, normal rhythm Expanded Peripheral pulses: 2+: Dorsalis Pedis (L) GI/Abdominal exam: Present: soft. Absent: tenderness Extremities exam: Present: other (Left knee with mild swelling, moderate to severe diffuse tenderness anterior. Pain with anterior drawer however discomfort is mostly at the area of the superior tibia. Distally the extremity is neurovascularly intact.) Neurological exam: Present: alert. Absent: motor sensory deficit Psychiatric exam: Present: normal affect, normal mood Skin exam: Present: normal color. Absent: rash Course Vital Signs 05/18/19 08:32 Temperature 97.7 F Pulse Rate 103 H Respiratory 20 Rate Blood Pressure 243/91 O2 Sat by Pulse 99 Oximetry Medical Decision Making - Medical Decision Making Patient reevaluated and updated. Patient states she cannot take ibuprofen regularly secondary to what her doctors. She told her. - Radiology Data Radiology results: image reviewed (X-ray left knee shows no acute process) Disposition Clinical Impression: Knee contusion Disposition: HOME SELF-CARE Condition: Stable Instructions (If sedation given, give patient instructions): Knee Pain (ED) Additional Instructions: Please follow-up with primary care physician in the next couple days for recheck. If symptoms continue consider orthopedic evaluation. Keep area wrapped. Ice to affected area. Return for increased pain, swelling, weakness, worsening symptoms or other concerns. Is patient prescribed a controlled substance at d/c from ED?: No Referrals: Carmelita Oliavs MD [Primary Care Provider] - 1-2 days Time of Disposition: 09:26
[2019-05-18] MEDS: KETOROLAC 60 MG/2 ML VIAL IM STA (08:55)
--- NOTE | 2019-05-18 09:18 | XR ---
Left knee HISTORY: Trauma and pain 4 views of the left knee Osteoarthritic changes are present with marginal spurring tricompartmentally. No sizable joint effusi on. Bone mineralization and alignment maintained. Joint space loss noted in the medial compartment. IMPRESSION: No fracture or dislocation.
[2019-05-18] MEDS: ACET/COD 300 MG/30 MG STARTER PACK 6 TAB BTL PO STA (09:33)
[2019-05-18 09:38] VITALS: BP 189/90; PULSE 79; RESP 16; TEMP 97.8
== END 2019-05-18 09:36 | disposition home or self-care (01) ==
LOC: EC 08:29
DX: S80.02XA Contusion of left knee, initial encounter (principal); E11.9 Type 2 diabetes mellitus without complications; F32.9 Major depressive disorder, single episode, unspecified; F41.9 Anxiety disorder, unspecified; E66.01 Morbid (severe) obesity due to excess calories; F17.200 Nicotine dependence, unspecified, uncomplicated; Z79.02 Long term (current) use of antithrombotics/antiplatelets; Z79.4 Long term (current) use of insulin; Z79.82 Long term (current) use of aspirin; Z79.899 Other long term (current) drug therapy; Z91.048 Other nonmedicinal substance allergy status; Z86.711 Personal history of pulmonary embolism; W01.0XXA Fall on same level from slipping, tripping and stumbling without subsequent striking against object, initial encounter; Y92.009 Unspecified place in unspecified non-institutional (private) residence as the place of occurrence of the external cause; Z68.45 Body mass index [BMI] 70 or greater, adult
CPT/HCPCS: 96372; 99283

== ENCOUNTER → 2019-10-30 | Outpatient (CLI) | payer OTHER ==
--- NOTE | 2019-10-30 12:26 | XR ---
EXAMINATION TYPE: XR knee complete LT DATE OF EXAM: 10/30/2019 COMPARISON: NONE HISTORY: Pain TECHNIQUE: Three views are submitted. FINDINGS: There is narrowing of the joint spaces. Mild hypertrophic changes noted. Osseous structures are intac t. No acute fracture seen. Soft tissue ossification noted. IMPRESSION: 1. No acute fracture or dislocation. 2. Osteoarthritis.
--- NOTE | 2019-10-30 12:27 | XR ---
EXAM TYPE: LUMBAR SPINE X RAY SERIES COMPARISON: 12/04/2016 HISTORY: Pain TECHNIQUE: 4 views are submitted. FINDINGS: Alignment is anatomic. The pedicles are intact. The transverse processes are intact. There is mult ilevel facet arthropathy and hypertrophic changes. There is a grade 1 anterolisthesis L4-L5 stable re lative to the prior exam. IMPRESSION: 1. Stable high grade 1 anterolisthesis L4 on L5. Multilevel facet changes are noted. Spondylolysis of L4 not excluded.
== END | disposition home or self-care (01) ==
LOC: RADXRMAIN 10:23
PROVIDERS: ATTEND Internal Medicine
DX: M43.16 Spondylolisthesis, lumbar region (principal); M47.816 Spondylosis without myelopathy or radiculopathy, lumbar region; M17.12 Unilateral primary osteoarthritis, left knee; M25.562 Pain in left knee
CPT/HCPCS: 72100

== ENCOUNTER → 2019-11-09 | Outpatient (CLI) | payer OTHER ==
[2019-11-09 16:10] LABS: Chol/HDL Ratio 4.73; LDL Cholesterol,Calculated 133.4 mg/dL (0.0-131.0); VLDL Calculation 19.6 mg/dL (5.00-40.00)
[2019-11-09 16:19] LABS: T4, Free (Free Thyroxine) 1.3 ng/dL (0.80-1.80)
[2019-11-09 18:53] LABS: Hemoglobin A1C 16.3 % (4.0-6.0)
== END | disposition home or self-care (01) ==
LOC: LABWHC1 09:46
PROVIDERS: ATTEND Internal Medicine
DX: E11.9 Type 2 diabetes mellitus without complications (principal); E03.9 Hypothyroidism, unspecified
CPT/HCPCS: 36415; 80061; 83036; 84439; 84443

== ENCOUNTER → 2020-03-24 | Outpatient (CLI) | payer OTHER ==
[2020-03-24 15:00] LABS: Chol/HDL Ratio 3.33; LDL Cholesterol,Calculated 75.8 mg/dL (0.0-131.0); VLDL Calculation 17.2 mg/dL (5.00-40.00)
== END | disposition home or self-care (01) ==
LOC: LABWHC1 08:42
PROVIDERS: ATTEND Internal Medicine
DX: E11.9 Type 2 diabetes mellitus without complications (principal)
CPT/HCPCS: 36415; 80061; 83036

== ENCOUNTER → 2020-10-10 | Outpatient (CLI) | payer OTHER | END | disposition home or self-care (01) | LOC: LABWHC1 16:22 | PROVIDERS: ATTEND Internal Medicine | DX: Z20.822 Contact with and (suspected) exposure to COVID-19 (principal); R05 Cough; R50.9 Fever, unspecified | CPT/HCPCS: U0003; C9803; U0005 ==

== ENCOUNTER 2020-11-04 09:12 | Emergency (ER) | payer OTHER ==
[2020-11-04 09:29] VITALS: RESP 18; TEMP 97.7
[2020-11-04] MEDS ORDERED: KETOROLAC 15 MG/ML 1 ML VIAL IM STA (10:06)
--- NOTE | 2020-11-04 10:52 | XR ---
Right ankle HISTORY: Pain, trauma 3 days prior 3 views the right ankle There is soft tissue swelling. Possible tract to the distal diaphyseal right fibula, correlate for pr ior surgical history. Alignment is maintained. Bone mineralization is reduced. Spurring is present at the tibiotalar joint. There is a plantar calcaneal spur. Enthesophyte present at the insertion of th e Achilles tendon. Small ossific densities posterior to the ankle joint of questionable age. Small os sific density present at the level the medial malleolus on the oblique view could represent a small a vulsion injury. IMPRESSION: Extensive soft tissue swelling, postop changes. Difficult to exclude small chip fracture, avulsion injury.
--- NOTE | 2020-11-04 11:20 | XR ---
EXAMINATION TYPE: XR elbow complete RT DATE OF EXAM: 11/04/2020 CLINICAL HISTORY: Pain after recent fall injury. TECHNIQUE: Frontal, lateral and oblique images of the right elbow are obtained. COMPARISON: None FINDINGS: There is no acute fracture/dislocation evident in the right elbow. No abnormal fat pad si gns are seen. The overlying soft tissue appears unremarkable. IMPRESSION: There is no acute fracture or dislocation in the right elbow.
--- NOTE | 2020-11-04 11:23 | ED ---
Lower Extremity Injury HPI - General Chief Complaint: Extremity Injury, Lower Stated Complaint: fall, rt arm/hip/ankle injury Time Seen by Provider: 11/04/20 09:37 Source: patient, RN notes reviewed Mode of arrival: wheelchair Limitations: no limitations - History of Present Illness Initial Comments: 40-year-old female presents emergency department chief complaint of a fall. Patient states she did trip and fall she complains of right elbow right arm pain, right hip pain. Patient states she is able he states worse when she is weightbearing or paresthesias. Patient states that she has a bad hip and some joints. Patient denies any head injury no loss conscious. Denies neck or low back pain - Related Data Home Medications Medication Instructions Recorded Confirmed metFORMIN HCL [metFORMIN HCL ER] 1,000 mg PO AC-BID 01/28/15 11/04/20 Cyclobenzaprine [Flexeril] 10 mg PO TID 05/19/18 11/04/20 Citalopram Hydrobromide [CeleXA] 20 mg PO DAILY 05/18/19 11/04/20 Clopidogrel [Plavix] 75 mg PO DAILY 05/18/19 11/04/20 Ferrous Sulfate [Feosol] 325 mg PO DAILY 05/18/19 11/04/20 Levothyroxine Sodium [Synthroid] 125 mcg PO DAILY 05/18/19 11/04/20 Omeprazole 20 mg PO BID 05/18/19 11/04/20 INSULIN LISPRO (humaLOG) [humaLOG] 10 units SQ AC-TID 11/04/20 11/04/20 Ibuprofen [Motrin] 800 mg PO Q12H PRN 11/04/20 11/04/20 Liraglutide [Victoza 2-Malik] 1.8 mg SQ WE 11/04/20 11/04/20 Rosuvastatin [Crestor] 10 mg PO HS 11/04/20 11/04/20 atenoloL [Atenolol] 25 mg PO DAILY 11/04/20 11/04/20 lisinopriL [Zestril] 5 mg PO DAILY 11/04/20 11/04/20 Allergies Allergy/AdvReac Type Severity Reaction Status Date / Time adhesive AdvReac Unknown Verified 11/04/20 10:16 Review of Systems ROS Statement: Those systems with pertinent positive or pertinent negative responses have been documented in the HPI. ROS Other: All systems not noted in ROS Statement are negative. Past Medical History Past Medical History: Diabetes Mellitus, Pulmonary Embolus (PE), Thyroid Disorder Additional Past Medical History / Comment(s): morbid obesity, ABD HERNIA, ''FLESH EATING DISEASE'' History of Any Multi-Drug Resistant Organisms: None Reported Past Surgical History: Section Additional Past Surgical History / Comment(s): 2 c-sections, surgical debridement of buttocks Past Anesthesia/Blood Transfusion Reactions: Motion Sickness Additional Past Anesthesia/Blood Transfusion Reaction / Comment(s): CLAUSTERPHOBIA Past Psychological History: Anxiety, Depression Smoking Status: Current every day smoker Past Alcohol Use History: Rare Past Drug Use History: None Reported - Past Family History Mother Additional Family Medical History / Comment(s): MIGRAINES, HAS WATER ON HER BRAIN Father History Unknown: Yes Additional Family Medical History / Comment(s): PTS DAD WHEN SHE WAS 13 General Exam Limitations: no limitations General appearance: alert, in no apparent distress Head exam: Present: atraumatic, normocephalic, normal inspection Neck exam: Present: normal inspection, full ROM. Absent: tenderness, meningismus, lymphadenopathy Respiratory exam: Present: normal lung sounds bilaterally. Absent: respiratory distress, wheezes, rales, rhonchi, stridor Cardiovascular Exam: Present: regular rate, normal rhythm, normal heart sounds. Absent: systolic murmur, diastolic murmur, rubs, gallop, clicks Extremities exam: Present: other (Right elbow there is mild tenderness, full range of motion, neurovascular intact right shoulder wrist within normal limits right ankle is moderate swelling tenderness on medial aspect no proximal tib-fib tenderness, no distal foot tenderness mild right hip tenderness though has full range of motion) Back exam: Present: full ROM. Absent: tenderness, paraspinal tenderness, vertebral tenderness Neurological exam: Present: alert, CN II-XII intact Skin exam: Present: warm, dry, intact, normal color. Absent: rash Course Vital Signs 11/04/20 09:23 Temperature 97.7 F Pulse Rate 61 Respiratory 18 Rate Blood Pressure 134/86 O2 Sat by Pulse 97 Oximetry Procedures - Orthopedic Splinting/Casting Injury #1 Side: right Lower Extremity Injury Location: short leg, ankle Lower Extremity Immobilizer: posterior splint, synthetic pre-padded splint Medical Decision Making - Medical Decision Making Patient's x-ray shows evidence of possible old avulsion fracture. Patient was splinted she is tender over this area will follow-up with orthopedics. Disposition Clinical Impression: Closed fracture of right distal tibia Disposition: HOME SELF-CARE Condition: Stable Instructions (If sedation given, give patient instructions): Ankle Fracture (ED) Additional Instructions: Please return to the Emergency Department if symptoms worsen or any other concerns. Is patient prescribed a controlled substance at d/c from ED?: No Referrals: Carmelita Olivas MD [Primary Care Provider] - 1-2 days Shahzad Hoang MD [STAFF PHYSICIAN] - 1-2 days Time of Disposition: 12:22
--- NOTE | 2020-11-04 11:24 | XR ---
EXAMINATION TYPE: XR Hip RT and AP Pelvis DATE OF EXAM: 11/04/2020 COMPARISON: NONE HISTORY: Trauma and pain TECHNIQUE: A single AP view of the pelvis is obtained. Two views of the right hip are obtained. FINDINGS: There is no acute fracture/dislocation evident in the pelvis. The hip and sacroiliac join ts appear symmetric and unremarkable. The overlying soft tissue appears unremarkable. There are fallopian tubal ligation clips noted small calcification lateral to the femoral head is chr onic finding. There is a minute ossific density present at the level of the acetabulum laterally at t he disc space which likely was present on prior exam. Degenerative disc changes are present in the vi sualized portions of the lumbar spine Two views of right hip show no acute fracture or dislocation. No focal lytic or sclerotic lesion see n in the proximal right femur. The overlying soft tissue is unremarkable. IMPRESSION: There is no acute fracture or dislocation in the pelvis or right hip.
[2020-11-04] MEDS ORDERED: ACET/COD 300 MG/30 MG STARTER PACK 6 TAB BTL PO STA (12:20)
[2020-11-04 12:36] VITALS: BP 114/77; PULSE 58
== END 2020-11-04 12:36 | disposition home or self-care (01) ==
LOC: EC 09:12
DX: S82.301A Unspecified fracture of lower end of right tibia, initial encounter for closed fracture (principal); F17.200 Nicotine dependence, unspecified, uncomplicated; F32.9 Major depressive disorder, single episode, unspecified; E11.9 Type 2 diabetes mellitus without complications; E07.9 Disorder of thyroid, unspecified; E66.01 Morbid (severe) obesity due to excess calories; Z86.711 Personal history of pulmonary embolism; Z97.4 Presence of external hearing-aid; Z68.44 Body mass index [BMI] 60.0-69.9, adult; Z79.84 Long term (current) use of oral hypoglycemic drugs; W01.0XXA Fall on same level from slipping, tripping and stumbling without subsequent striking against object, initial encounter
CPT/HCPCS: 29515; 73502; 96372; 99284

== ENCOUNTER → 2020-11-11 | Outpatient (CLI) | payer OTHER ==
--- NOTE | 2020-11-11 10:59 | XR ---
EXAMINATION TYPE: XR ankle limited RT DATE OF EXAM: 11/11/2020 COMPARISON: NONE HISTORY: Pain FINDINGS: Three views of the ankle demonstrate the ankle mortise to be intact and symmetric. The joint spaces are preserved. The osseous structures are intact. Calcaneal spurs noted. Soft tissue edema noted. IMPRESSION: 1. No definite acute fracture or dislocation, if symptoms persist follow-up study in 7 to 10 days wou ld be suggested. 2. Soft tissue edema.
--- NOTE | 2020-11-11 11:02 | XR ---
EXAMINATION TYPE: XR foot limited RT DATE OF EXAM: 11/11/2020 COMPARISON: NONE HISTORY: Pain TECHNIQUE: Three views are submitted. FINDINGS: Calcaneal spurs are noted. Tiny bony density seen adjacent to the lateral margin of the calcaneus.. There is no acute fracture or dislocation. Joint spaces are preserved. Calcaneal spurs noted. IMPRESSION: 1. The previously noted tiny bony density seen adjacent to the lateral calcaneus is too small to radha acterize and could be chronic related soft tissue calcification. Correlation with point tenderness re commended to exclude tiny avulsion fracture.
== END | disposition home or self-care (01) ==
LOC: RADXRMAIN 10:22
PROVIDERS: ATTEND Internal Medicine
DX: M25.571 Pain in right ankle and joints of right foot (principal)

== ENCOUNTER → 2020-11-24 | Outpatient (CLI) | payer OTHER ==
[2020-11-24 15:05] LABS: African American GFR (CKD) 82.2 (60.0-200.0); Anion Gap 10.6 mmol/L (4.00-12.00); Calcium 9.3 mg/dL (8.7-10.3); Carbon Dioxide 25.4 mmol/L (21.6-31.8); Chol/HDL Ratio 4.08; LDL Cholesterol,Calculated 96.2 mg/dL (0.0-131.0); Non-African American GFR(CKD) 70.9 (60.0-200.0); VLDL Calculation 23.8 mg/dL (5.00-40.00)
[2020-11-24 15:12] LABS: T4, Free (Free Thyroxine) 1.1 ng/dL (0.80-1.80)
[2020-11-24 18:03] LABS: Urine Creatinine 29.6 mg/dL
== END | disposition home or self-care (01) ==
LOC: LABWHC1 08:44
PROVIDERS: ATTEND Internal Medicine
DX: E11.9 Type 2 diabetes mellitus without complications (principal); E03.9 Hypothyroidism, unspecified
CPT/HCPCS: 36415; 80048; 80061; 82043; 82570; 84439; 84443

== ENCOUNTER → 2021-03-06 | Outpatient (CLI) | payer OTHER ==
[2021-03-06 08:05] LABS: ALT 14 U/L (4-34); AST 19 U/L (14-36); African American GFR (CKD) >90 (>60 ml/min/1.73 sqM); Albumin 3.7 g/dL (3.5-5.0); Alkaline Phosphatase 146 U/L (38-126); Anion Gap 13 mmol/L; Blood Urea Nitrogen 12 mg/dL (7-17); Calcium 9.6 mg/dL (8.4-10.2); Carbon Dioxide 21 mmol/L (22-30); Chloride 95 mmol/L (98-107); Non-African American GFR(CKD) >90 (>60 ml/min/1.73 sqM); Potassium 4.6 mmol/L (3.5-5.1); Sodium 129 mmol/L (137-145); Total Bilirubin 0.7 mg/dL (0.2-1.3); Total Protein 6.8 g/dL (6.3-8.2)
[2021-03-06 08:18] LABS: T4, Free (Free Thyroxine) 1.05 ng/dL (0.78-2.19)
[2021-03-06 08:40] LABS: Glucose 619 mg/dL (74-99)
[2021-03-06 14:40] LABS: Chol/HDL Ratio 5.18 Ratio
== END ==
LOC: LAB 07:04
PROVIDERS: ATTEND Internal Medicine
DX: E11.9 Type 2 diabetes mellitus without complications (principal); E03.9 Hypothyroidism, unspecified; E55.9 Vitamin D deficiency, unspecified; Z91.048 Other nonmedicinal substance allergy status
CPT/HCPCS: 80053; 80061; 82306; 83036; 84439; 84443

== ENCOUNTER → 2021-07-16 | Outpatient (CLI) | payer OTHER ==
[2021-07-16 11:49] LABS: ALT <5 U/L (8-44); AST 9 U/L (13-35); African American GFR (CKD) 106.9 (60.0-200.0); Albumin 3.7 g/dL (3.8-4.9); Albumin/Globulin Ratio 1.12 (1.60-3.17); Alkaline Phosphatase 99 U/L (41-126); BUN/Creat Ratio 13.75 Ratio (12.00-20.00); Calcium 9.2 mg/dL (8.7-10.3); Carbon Dioxide 24.1 mmol/L (20.0-27.5); Chloride 102 mmol/L (96-109); Chol/HDL Ratio 2.85 Ratio; Globulin 3.3 g/dL (1.6-3.3); Glucose 140 mg/dL (70-110); LDL Cholesterol,Calculated 74.8 mg/dL (0.0-131.0); Non-African American GFR(CKD) 92.2 (60.0-200.0); Potassium 4.3 mmol/L (3.5-5.5); Sodium 137 mmol/L (135-145); VLDL Calculation 12.18 mg/dL (5.00-40.00)
== END | disposition home or self-care (01) ==
LOC: LABWHC1 07:30
PROVIDERS: ATTEND Family Medicine
DX: E03.9 Hypothyroidism, unspecified (principal); E11.9 Type 2 diabetes mellitus without complications; E55.9 Vitamin D deficiency, unspecified
CPT/HCPCS: 36415; 80053; 80061; 82306; 83036; 84439; 84443

== ENCOUNTER 2021-07-21 22:36 | Emergency (ER) | payer OTHER ==
[2021-07-22 04:10] LABS: ALT 15 U/L (4-34); AST 28 U/L (14-36); African American GFR (CKD) >90 (>60 ml/min/1.73 sqM); Albumin 4.5 g/dL (3.5-5.0); Alkaline Phosphatase 113 U/L (38-126); Anion Gap 15 mmol/L; Blood Urea Nitrogen 16 mg/dL (7-17); Calcium 9.5 mg/dL (8.4-10.2); Carbon Dioxide 23 mmol/L (22-30); Chloride 99 mmol/L (98-107); Glucose 220 mg/dL (74-99); Magnesium 1.6 mg/dL (1.6-2.3); Non-African American GFR(CKD) 84 (>60 ml/min/1.73 sqM); Potassium 4.3 mmol/L (3.5-5.1); Sodium 137 mmol/L (137-145); Total Bilirubin 0.5 mg/dL (0.2-1.3); Total Protein 8.2 g/dL (6.3-8.2)
[2021-07-22 04:17] LABS: Basophils # (A) 0.1 k/uL (0-0.2); Basophils % (A) 0 %; Eosinophils # (A) 0.1 k/uL (0-0.7); Eosinophils % (A) 1 %; HCT 47.4 % (34.0-46.0); Lymphocytes # (A) 1.8 k/uL (1.0-4.8); Lymphocytes % (A) 10 %; MCH 33.2 pg (25.0-35.0); MCHC 33.6 g/dL (31.0-37.0); MCV 98.8 fL (80.0-100.0); Mean Platelet Volume 7.5; Monocytes # (A) 0.8 k/uL (0-1.0); Monocytes % (A) 4 %; Neutrophils # (A) 16.1 k/uL (1.3-7.7); Neutrophils % (A) 85 %; Platelet Count 342 k/uL (150-450); RDW 12.8 % (11.5-15.5); WBC 18.9 k/uL (3.8-10.6)
[2021-07-22 04:22] LABS: Alcohol <10 mg/dL
--- NOTE | 2021-07-22 09:11 | XR ---
EXAM: XR Chest, 1 View CLINICAL HISTORY: Unresponsive TECHNIQUE: Frontal view of the chest. COMPARISON: No relevant prior studies available. FINDINGS: Lungs: Unremarkable. No acute infiltration, atelectasis or mass. Pleural space: Unremarkable. No pneumothorax or pleural fluid. Heart: Unremarkable. No cardiomegaly. Mediastinum: Unremarkable. Bones/joints: No acute findings. IMPRESSION: Negative chest x-ray.
== END 2021-07-22 02:34 | disposition left against medical advice (07) ==
LOC: EC 22:36
DX: Z53.21 Procedure and treatment not carried out due to patient leaving prior to being seen by health care provider (principal)
CPT/HCPCS: 36415 ×2; 80053; 82009; 83605; 83735; 84484; 85025; 71045; 99499; G0480; 80320

== ENCOUNTER 2021-07-23 13:20 | Observation (INO) | payer OTHER ==
[2021-07-23 13:40] LABS: Glucose,Whole Blood 229 mg/dL (75-99)
[2021-07-23 14:50] LABS: Basophils # (A) 0.1 k/uL (0-0.2); Basophils % (A) 0 %; Eosinophils # (A) 0.3 k/uL (0-0.7); Eosinophils % (A) 2 %; HCT 41.7 % (34.0-46.0); Lymphocytes # (A) 1.9 k/uL (1.0-4.8); Lymphocytes % (A) 11 %; MCH 32.6 pg (25.0-35.0); MCHC 33.7 g/dL (31.0-37.0); MCV 96.9 fL (80.0-100.0); Mean Platelet Volume 7.2; Monocytes # (A) 0.6 k/uL (0-1.0); Monocytes % (A) 4 %; Neutrophils # (A) 13.4 k/uL (1.3-7.7); Neutrophils % (A) 82 %; Platelet Count 272 k/uL (150-450); RDW 13.1 % (11.5-15.5); WBC 16.3 k/uL (3.8-10.6)
[2021-07-23 14:58] LABS: ALT 10 U/L (4-34); AST 23 U/L (14-36); African American GFR (CKD) >90 (>60 ml/min/1.73 sqM); Albumin 3.5 g/dL (3.5-5.0); Alkaline Phosphatase 90 U/L (38-126); Anion Gap 6 mmol/L; Blood Urea Nitrogen 10 mg/dL (7-17); Calcium 8.9 mg/dL (8.4-10.2); Carbon Dioxide 24 mmol/L (22-30); Chloride 101 mmol/L (98-107); Glucose 237 mg/dL (74-99); Magnesium 1.5 mg/dL (1.6-2.3); Non-African American GFR(CKD) >90 (>60 ml/min/1.73 sqM); Sodium 131 mmol/L (137-145); Total Bilirubin 0.9 mg/dL (0.2-1.3); Total Protein 6.9 g/dL (6.3-8.2)
[2021-07-23 15:04] LABS: Potassium 5.1 mmol/L (3.5-5.1)
[2021-07-23 15:09] LABS: INR 0.9 (<1.2)
[2021-07-23 15:10] LABS: Prothrombin Time 10.2 sec (9.0-12.0)
--- NOTE | 2021-07-23 15:10 | XR ---
EXAMINATION TYPE: XR ribs RT w pa chest xray DATE OF EXAM: 07/23/2021 CLINICAL HISTORY: Chest and right-sided rib pain after recent fall injury. TECHNIQUE: Single frontal view of the chest is obtained. A frontal and oblique images of the right-si ded ribs. COMPARISON: Chest x-ray from yesterday FINDINGS: There is no focal air space opacity, pleural effusion, or pneumothorax seen. The cardiac silhouette size remains within normal limits. The osseous structures are intact. Dedicated images of right-sided ribs show no acute displaced fracture. Overlying soft tissue is unrem arkable. IMPRESSION: 1. No acute cardiopulmonary process. 2. No acute displaced right-sided rib fracture.
[2021-07-23 15:18] LABS: Partial Thromboplastin Time 21.3 sec (22.0-30.0)
[2021-07-23] MEDS ORDERED: NALOXONE 0.4 MG/ML 1 ML VIAL IV PRN (16:06)
[2021-07-23] MEDS ORDERED: ACETAMINOPHEN TAB 325 MG TAB PO PRN (16:06)
[2021-07-23] MEDS ORDERED: MAGNESIUM SULFATE-D5W PMX 1 GM in DEXTROSE/WATER 1 100ML.BAG IVPB ONE (16:06)
--- NOTE | 2021-07-23 16:11 | ED ---
General Adult HPI - General Chief complaint: Chest Pain Stated complaint: right side pain, revisit Time Seen by Provider: 07/23/21 13:50 Source: patient, RN notes reviewed, old records reviewed Mode of arrival: wheelchair Limitations: no limitations - History of Present Illness Initial comments: 41-year-old female presenting for reevaluation. Patient was seen in the emergency department 2 days prior after suspected syncopal episode where the patient had momentary period of where she was unresponsive. Chest compressions were performed by bystanders. The patient was brought to the emergency department alert and oriented without complaint at that time. She did leave AGAINST MEDICAL ADVICE and has returned for evaluation of the reason why she may have passed out. She does report some right lateral chest pain. No central chest pain. No dyspnea. No fever. No vomiting. - Related Data Home Medications Medication Instructions Recorded Confirmed metFORMIN HCL [metFORMIN HCL ER] 1,000 mg PO AC-BID 01/28/15 11/04/20 Cyclobenzaprine [Flexeril] 10 mg PO TID 05/19/18 11/04/20 Citalopram Hydrobromide [CeleXA] 20 mg PO DAILY 05/18/19 11/04/20 Clopidogrel [Plavix] 75 mg PO DAILY 05/18/19 11/04/20 Ferrous Sulfate [Feosol] 325 mg PO DAILY 05/18/19 11/04/20 Levothyroxine Sodium [Synthroid] 125 mcg PO DAILY 05/18/19 11/04/20 Omeprazole 20 mg PO BID 05/18/19 11/04/20 INSULIN LISPRO (humaLOG) [humaLOG] 10 units SQ AC-TID 11/04/20 11/04/20 Ibuprofen [Motrin] 800 mg PO Q12H PRN 11/04/20 11/04/20 Liraglutide [Victoza 2-Malik] 1.8 mg SQ WE 11/04/20 11/04/20 Rosuvastatin [Crestor] 10 mg PO HS 11/04/20 11/04/20 atenoloL 25 mg PO DAILY 11/04/20 11/04/20 lisinopriL [Zestril] 5 mg PO DAILY 11/04/20 11/04/20 Allergies Allergy/AdvReac Type Severity Reaction Status Date / Time adhesive AdvReac Unknown Verified 07/23/21 13:40 Review of Systems ROS Statement: Those systems with pertinent positive or pertinent negative responses have been documented in the HPI. ROS Other: All systems not noted in ROS Statement are negative. Past Medical History Past Medical History: Diabetes Mellitus, Pulmonary Embolus (PE), Thyroid Disorder Additional Past Medical History / Comment(s): morbid obesity, ABD HERNIA, ''FLESH EATING DISEASE'' ,covid 06/27 History of Any Multi-Drug Resistant Organisms: None Reported Past Surgical History: Section Additional Past Surgical History / Comment(s): 2 c-sections, surgical debridement of buttocks Past Anesthesia/Blood Transfusion Reactions: Motion Sickness Additional Past Anesthesia/Blood Transfusion Reaction / Comment(s): CLAUSTERPHOBIA Past Psychological History: Anxiety, Depression Smoking Status: Current every day smoker Past Alcohol Use History: Rare Past Drug Use History: None Reported - Past Family History Mother Additional Family Medical History / Comment(s): MIGRAINES, HAS WATER ON HER B RAIN Father History Unknown: Yes Additional Family Medical History / Comment(s): PTS DAD WHEN SHE WAS 13 General Exam Limitations: no limitations General appearance: alert, in no apparent distress Head exam: Present: atraumatic, normocephalic Eye exam: Present: normal appearance, PERRL ENT exam: Present: normal exam Neck exam: Present: normal inspection. Absent: tenderness Respiratory exam: Present: normal lung sounds bilaterally. Absent: respiratory distress, wheezes Cardiovascular Exam: Present: regular rate, normal rhythm GI/Abdominal exam: Present: soft. Absent: distended, tenderness, guarding Extremities exam: Present: normal inspection, normal capillary refill. Absent: pedal edema Neurological exam: Present: alert, oriented X3, CN II-XII intact. Absent: motor sensory deficit Psychiatric exam: Present: normal affect, normal mood Skin exam: Present: warm, dry, intact. Absent: cyanosis, diaphoretic Course Vital Signs 07/23/21 13:29 Temperature 99.9 F H Pulse Rate 97 Respiratory 18 Rate Blood Pressure 179/80 O2 Sat by Pulse 95 Oximetry EKG Findings - EKG Comments: EKG Findings:: EKG: Sinus rhythm left anterior fascicular block T-wave inversion in aVL, no ST segment elevation, rate of 88, LA interval 176, QRS duration 1:15, QTC 433 Medical Decision Making - Medical Decision Making 41-year-old female presents for evaluation of syncope and right-sided chest pain. Right-sided chest pain does seem musculoskeletal may be secondary to chest compressions that were performed on the patient 2 days prior. Uncertain exactly why this patient had been unresponsive or had syncopal episode. She is in sinus rhythm, chest x-rays negative for displaced rib fracture or acute findi ngs. Patient has mild leukocytosis of uncertain etiology. Normal white lites, negative troponin. Urinalysis is pending. She will be monitored on telemetry. She will be [facility] to [facility] who have been paged. Additionally echo will be ordered. - Lab Data Result diagrams: 07/23/21 14:36 07/23/21 14:36 Lab Results 07/23/21 07/23/21 07/23/21 Range/Units 13:38 14:36 14:36 WBC 16.3 H (3.8-10.6) k/uL RBC 4.30 (3.80-5.40) m/uL Hgb 14.0 (11.4-16.0) gm/dL Hct 41.7 (34.0-46.0) % MCV 96.9 (80.0-100.0) fL MCH 32.6 (25.0-35.0) pg MCHC 33.7 (31.0-37.0) g/dL RDW 13.1 (11.5-15.5) % Plt Count 272 (150-450) k/uL MPV 7.2 Neutrophils % 82 % Lymphocytes % 11 % Monocytes % 4 % Eosinophils % 2 % Basophils % 0 % Neutrophils # 13.4 H (1.3-7.7) k/uL Lymphocytes # 1.9 (1.0-4.8) k/uL Monocytes # 0.6 (0-1.0) k/uL Eosinophils # 0.3 (0-0.7) k/uL Basophils # 0.1 (0-0.2) k/uL PT 10.2 (9.0-12.0) sec INR 0.9 (<1.2) APTT 21.3 L (22.0-30.0) sec Sodium (137-145) mmol/L Potassium (3.5-5.1) mmol/L Chloride (98-107) mmol/L Carbon Dioxide (22-30) mmol/L Anion Gap mmol/L BUN (7-17) mg/dL Creatinine (0.52-1.04) mg/dL Est GFR (CKD-EPI)AfAm (>60 ml/min/1.73 sqM) Est GFR (CKD-EPI)NonAf (>60 ml/min/1.73 sqM) Glucose (74-99) mg/dL POC Glucose (mg/dL) 229 H (75-99) mg/dL POC Glu Stock Pitcher ID Calcium (8.4-10.2) mg/dL Magnesium (1.6-2.3) mg/dL Total Bilirubin (0.2-1.3) mg/dL AST (14-36) U/L ALT (4-34) U/L Alkaline Phosphatase (38-126) U/L Troponin I (0.000-0.034) ng/mL Total Protein (6.3-8.2) g/dL Albumin (3.5-5.0) g/dL 07/23/21 07/23/21 Range/Units 14:36 14:36 WBC (3.8-10.6) k/uL RBC (3.80-5.40) m/uL Hgb (11.4-16.0) gm/dL Hct (34.0-46.0) % MCV (80.0-100.0) fL MCH (25.0-35.0) pg MCHC (31.0-37.0) g/dL RDW (11.5-15.5) % Plt Count (150-450) k/uL MPV Neutrophils % % Lymphocytes % % Monocytes % % Eosinophils % % Basophils % % Neutrophils # (1.3-7.7) k/uL Lymphocytes # (1.0-4.8) k/uL Monocytes # (0-1.0) k/uL Eosinophils # (0-0.7) k/uL Basophils # (0-0.2) k/uL PT (9.0-12.0) sec INR (<1.2) APTT (22.0-30.0) sec Sodium 131 L (137-145) mmol/L Potassium 5.1 (3.5-5.1) mmol/L Chloride 101 (98-107) mmol/L Carbon Dioxide 24 (22-30) mmol/L Anion Gap 6 mmol/L BUN 10 (7-17) mg/dL Creatinine 0.64 (0.52-1.04) mg/dL Est GFR (CKD-EPI)AfAm >90 (>60 ml/min/1.73 sqM) Est GFR (CKD-EPI)NonAf >90 (>60 ml/min/1.73 sqM) Glucose 237 H (74-99) mg/dL POC Glucose (mg/dL) (75-99) mg/dL POC Glu Stock Pitcher ID Calcium 8.9 (8.4-10.2) mg/dL Magnesium 1.5 L (1.6-2.3) mg/dL Total Bilirubin 0.9 (0.2-1.3) mg/dL AST 23 (14-36) U/L ALT 10 (4-34) U/L Alkaline Phosphatase 90 (38-126) U/L Troponin I <0.012 (0.000-0.034) ng/mL Total Protein 6.9 (6.3-8.2) g/dL Albumin 3.5 (3.5-5.0) g/dL Disposition Clinical Impression: Chest pain, Syncope Disposition: ADMITTED IP TO THIS HOSP Condition: Stable Is patient prescribed a controlled substance at d/c from ED?: No Referrals: Carmelita Olivas MD [Primary Care Provider] - 1-2 days Decision to Admit Reason: Admit from EC Decision Date: 07/23/21 Decision Time: 16:11
[2021-07-23 17:04] LABS: Appearance,Urine Clear (Clear); Bilirubin,Urine Negative (Negative); Blood,Urine Negative (Negative); Color,Urine Yellow; Glucose,Urine (UA) 3+ (Negative); Ketones,Urine Negative (Negative); Leukocyte Esterase,Urine Negative (Negative); Nitrite,Urine Negative (Negative); Protein,Urine Negative (Negative); Specific Gravity,Urine 1.008 (1.001-1.035); Urobilinogen,Urine <2.0 mg/dL (<2.0)
[2021-07-23] MEDS ORDERED: CYCLOBENZAPRINE 10 MG TAB PO PRN (17:31)
[2021-07-23] MEDS ORDERED: Potassium Replacement Protocol 1 EACH MISC MISCELLANE PRN (17:31)
[2021-07-23] MEDS ORDERED: Magnesium Replacement Protocol 1 EACH MISC MISCELLANE PRN (17:31)
[2021-07-23] MEDS ORDERED: HYDROmorphone 1 MG/ML 1 ML SYRINGE IVP PRN (17:33)
[2021-07-23] MEDS ORDERED: INSULN ASP PRT/INSULIN ASPART 100 UNIT/ML 10 ML VIAL SQ SCH (18:00)
--- NOTE | 2021-07-23 18:03 | HP ---
HISTORY AND PHYSICAL DATE OF SERVICE: 07/23/2021 CHIEF COMPLAINT: Chest pain. HISTORY OF PRESENT ILLNESS: This 41-year-old woman with a past medical history of pulmonary embolism, history of diabetes mellitus, being followed by Dr. Olivas in the outpatient setting, came to the emergency department about two days with a suspected syncopal episode and the patient had an episode of unresponsiveness. The patient apparently also had some chest compression by bystanders. The patient was taken to [facility], but the patient left the hospital AGAINST MEDICAL ADVICE. Seizure disorder was suspected. Currently the patient is complaining of severe chest pain in the right lower chest which is radiating to the back, with failure of outpatient treatment. The patient is admitted for further evaluation and treatment. There is no history of any fever, rigor or chills at this time. PAST MEDICAL HISTORY: History of diabetes mellitus, pulmonary embolism, hypothyroidism. HOME MEDICATIONS: Reviewed. They include Flexeril, Crestor, omeprazole. Doses and other medications are reviewed. ALLERGIES: ADHESIVES. FAMILY HISTORY: History of migraines in the family. SOCIAL HISTORY: History of smoking. REVIEW OF SYSTEMS: Fourteen-point review of systems negative except as mentioned earlier. PHYSICAL EXAMINATION: Pulse is 97, blood pressure 117/80, respiration 18. HEENT: Conjunctivae normal. Oral mucosa moist. CARDIOVASCULAR: S1, S2 muffled. RESPIRATION: Breath sounds diminished at the bases. No rhonchi. No crackles. ABDOMEN: Soft, obese, non-tender. LEGS: No edema. No swelling. NERVOUS SYSTEM: Higher functions as mentioned earlier. Moves all 4 limbs. No focal motor or sensory deficit. LYMPHATICS: No lymph node palpable in neck, axillae or groin. SKIN: No ulcer, rash, bleeding. JOINTS: No active deforming arthropathy. EXAMINATION OF THE CHEST: Some tenderness present in the right lower part extending posteriorly. LABS: WBC 16.3. Other labs are noted. ASSESSMENT: 1. Acute right lower lobe chest pain. Rule out rib fracture. Rule out pulmonary embolism. 2. History of recent seizure with syncope and bystander CPR. 3. Diabetes mellitus, type 2. 4. History of PE. RECOMMENDATIONS AND DISCUSSION: In this 41-year-old woman who presented with multiple complex medical issues, we will monitor the patient closely, continue the current medications, continue symptomatic treatment. I recommend D-dimer; if it is elevated, I would recommend a CTA of the chest. The x-ray failed to show any rib fractures at this time. Prognosis guarded. Will also obtain neurology consultation because of the recent possible seizure versus pseudo-seizure episode. Further recommendations to follow. See orders for further details. MMODL / IJN: [id number] /
[2021-07-23 18:40] LABS: Glucose,Whole Blood 244 mg/dL (75-99)
[2021-07-23] MEDS: KETOROLAC 30 MG/ML 1 ML VIAL IVP PRN (18:44)
[2021-07-23] MEDS: SODIUM CHLORIDE 0.9% 1,000 ML IV SCH (18:46)
[2021-07-23] MEDS ORDERED: ATORVASTATIN 20 MG TAB PO SCH (21:00)
[2021-07-23 21:31] LABS: Glucose,Whole Blood 177 mg/dL (75-99)
[2021-07-23] MEDS: HEPARIN SODIUM,PORCINE/PF 5,000 UNIT/0.5 ML SYRINGE SQ SCH (21:52)
[2021-07-23] MEDS: GABAPENTIN 400 MG CAP PO SCH (21:52)
[2021-07-23] MEDS: INSULIN ASPART (NovoLOG) 100 UNIT/ML VIAL SQ SCH (21:52)
[2021-07-24] MEDS: SODIUM CHLORIDE 0.9% 1,000 ML IV SCH (05:33)
[2021-07-24] MEDS ORDERED: LEVOTHYROXINE 75 MCG TAB PO SCH (06:30)
[2021-07-24 07:23] LABS: Glucose,Whole Blood 152 mg/dL (75-99)
--- NOTE | 2021-07-24 07:23 | P.CRDCN ---
History of Present Illness Consult date: 07/24/21 History of present illness: The patient is a 41-year-old female with a history of smoking, diabetes, hyperlipidemia and hypertension and a prior history of pulmonary embolism who presented 2 days ago to the emergency room following possible syncope of unclear etiology. She signed AGAINST MEDICAL ADVICE and presented With right-sided chest discomfort. The discomfort in the right side is respirophasic and positional. She denies any prior similar history or prior history of myocardial infarction. She is not very active physically but has no exertional chest pain on a regular basis. She has no prior history of syncope. She had no recent cardiac workup. She denies any palpitations. She has no PND, orthopnea or peripheral edema. She has been maintained on Plavix since her pulmonary embolism. Detail of that are not available to me. Her coronary risk factors are positive for hypertension, hyperlipidemia and diabetes mellitus in addition to smoking. Her medication at home include Crestor 10 mg daily, insulin, Plavix 75 mg daily, atenolol 25 mg daily, Zestril 5 mg daily, Celexa. Her lab data showed a troponin of less than 0.012, BUN and creatinine 10 and 0.64, hemoglobin of 14. Her d-dimer is 0.53. Her EKG shows sinus mechanism, left axis deviation and left ventricular hypertrophy. Her x-ray showed no evidence of rib fracture. Review of system: Respiratory: No history of asthma, bronchitis or recent cough. GI: No nausea, vomiting. No history of peptic ulcer disease. No recent GI bleed. : No hematuria or dysuria. Nervous System: No stroke or seizure. Physical examination: 41-year-old female alert and oriented with discomfort on the right side, morbidly obese, blood pressure 125/80 with heart rate in the 70s. Head: Normocephalic. Eyes: Sclerae nonicteric. Neck: Good carotid upstroke, no bruit, no jugular venous distention. Lungs: Clear to auscultation. Heart: Regular rate and rhythm, S1-S2, no S3, no murmur or rub. Reproducible discomfort on the right side of the chest Abdomen: Soft nontender, positive bowel sounds no organomegaly. Extremities: No edema, intact distal pulses. Impression: 1. Chest discomfort, atypical for ischemic heart disease, musculoskeletal. 2. History of hypertension 3. History of hyperlipidemia 4. Diabetes mellitus 5. Chronic tobacco use 6. Prior history of pulmonary embolism with normal d-dimer. Plan: 1. Obtain an echocardiogram with Doppler 2. Continue home medications 3. If there is no evidence of segmental wall motion abnormality then no further cardiac workup is needed at this time 4. Follow-up as an outpatient to see if further testing is needed 5. Thank you for this consult we will follow with you Past Medical History Past Medical History: Diabetes Mellitus, Pulmonary Embolus (PE), Thyroid Disorder Additional Past Medical History / Comment(s): morbid obesity, ABD HERNIA, ''FLESH EATING DISEASE'' ,covid 06/27 History of Any Multi-Drug Resistant Organisms: None Reported Past Surgical History: Section Additional Past Surgical History / Comment(s): 2 c-sections, surgical debridement of buttocks Past Anesthesia/Blood Transfusion Reactions: Motion Sickness Additional Past Anesthesia/Blood Transfusion Reaction / Comment(s): CLAUSTERPHOBIA Past Psychological History: Anxiety, Depression Additional Psychological History / Comment(s): PT HAS 2 CHILDREN THAT LIVES WITH HER-HER NINE YEAR OLD HAS ADD AND ODD (STRESSFULL AT TIMES) FOR PT.PT WORKS OUT SIDE THE [employer] AND 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 Smoking Status: Current every day smoker Past Alcohol Use History: Rare Additional Past Alcohol Use History / Comment(s): STARTED SMOKING AROUND AGE 16, ROLLS OWN CIG GOES THRU 200 IN W WEEKS TIME.SMOKING BOOKLET LEFT WITH PT Past Drug Use History: None Reported - Past Family History Mother Additional Family Medical History / Comment(s): MIGRAINES, HAS WATER ON HER BRAIN Father History Unknown: Yes Additional Family Medical History / Comment(s): PTS DAD WHEN SHE WAS 13 Medications and Allergies Home Medications Medication Instructions Recorded Confirmed Type metFORMIN HCL [metFORMIN HCL ER] 1,000 mg PO BID-W/MEALS 01/28/15 07/23/21 History Cyclobenzaprine [Flexeril] 10 mg PO TID PRN 05/19/18 07/23/21 History Clopidogrel [Plavix] 75 mg PO DAILY 05/18/19 07/23/21 History Ferrous Sulfate [Feosol] 325 mg PO DAILY 05/18/19 07/23/21 History Rosuvastatin [Crestor] 10 mg PO HS 11/04/20 07/23/21 History atenoloL 25 mg PO DAILY 11/04/20 07/23/21 History lisinopriL [Zestril] 5 mg PO DAILY 11/04/20 07/23/21 History Citalopram Hydrobromide [CeleXA] 40 mg PO DAILY 07/23/21 07/23/21 History Ergocalciferol (Vitamin D2) 1,250 mcg PO TU 07/23/21 07/23/21 History [Drisdol (50,000 Iu)] Gabapentin [Neurontin] 400 mg PO TID 07/23/21 07/23/21 History Insulin Aspart Protam & Aspart 36 unit SQ W/BRKFST 07/23/21 07/23/21 History [NovoLOG MIX 70-30 Flexpen] Insulin Aspart Protam & Aspart 44 unit SQ W/SUPPER 07/23/21 07/23/21 History [NovoLOG MIX 70-30 Flexpen] Levothyroxine Sodium [Synthroid] 150 mcg PO DAILY 07/23/21 07/23/21 History Omeprazole 40 mg PO DAILY 07/23/21 07/23/21 History Allergies Allergy/AdvReac Type Severity Reaction Status Date / Time adhesive AdvReac Unknown Verified 07/23/21 17:13 Physical Exam Vitals: Vital Signs Temp Pulse Pulse Resp BP BP Pulse Ox 07/24/21 07:00 98.8 F 72 16 125/84 94 L 07/24/21 02:39 98.3 F 73 18 122/83 92 L 07/23/21 21:13 97.8 F 70 19 142/75 93 L 07/23/21 13:29 99.9 F H 97 18 179/80 95 Intake and Output 07/23/21 07/24/21 07/24/21 22:59 06:59 14:59 Other: # Voids 2 2 Weight 153.314 kg Results 07/23/21 14:36 07/23/21 14:36 Cardiac Enzymes 07/23/21 07/23/21 Range/Units 14:36 14:36 AST 23 (14-36) U/L Troponin I <0.012 (0.000-0.034) ng/mL Coagulation 07/23/21 Range/Units 14:36 PT 10.2 (9.0-12.0) sec APTT 21.3 L (22.0-30.0) sec CBC 07/23/21 Range/Units 14:36 WBC 16.3 H (3.8-10.6) k/uL RBC 4.30 (3.80-5.40) m/uL Hgb 14.0 (11.4-16.0) gm/dL Hct 41.7 (34.0-46.0) % Plt Count 272 (150-450) k/uL Comprehensive Metabolic Panel 07/23/21 Range/Units 14:36 Sodium 131 L (137-145) mmol/L Potassium 5.1 (3.5-5.1) mmol/L Chloride 101 (98-107) mmol/L Carbon Dioxide 24 (22-30) mmol/L BUN 10 (7-17) mg/dL Creatinine 0.64 (0.52-1.04) mg/dL Glucose 237 H (74-99) mg/dL Calcium 8.9 (8.4-10.2) mg/dL AST 23 (14-36) U/L ALT 10 (4-34) U/L Alkaline Phosphatase 90 (38-126) U/L Total Protein 6.9 (6.3-8.2) g/dL Albumin 3.5 (3.5-5.0) g/dL Current Medications Generic Name Dose Route Start Last Admin Trade Name Freq PRN Reason Stop Dose Admin Acetaminophen 650 mg 07/23/21 16:06 Acetaminophen Tab 325 Mg Tab PO Q6HR PRN Mild Pain or Fever > 100.5 Atenolol 25 mg 07/24/21 09:00 Atenolol 25 Mg Tab PO DAILY [facility] Atorvastatin Calcium 20 mg 07/23/21 21:00 07/23/21 21:52 Atorvastatin 20 Mg Tab PO 20 mg [facility] Administration Citalopram Hydrobromide 40 mg 07/24/21 09:00 Citalopram Hydrobromide 20 Mg Tab PO DAILY [facility] Clopidogrel Bisulfate 75 mg 07/24/21 09:00 Clopidogrel 75 Mg Tab PO DAILY [facility] Cyclobenzaprine HCl 10 mg 07/23/21 17:31 Cyclobenzaprine 10 Mg Tab PO TID PRN Muscle Spasm Ergocalciferol 1,250 mcg 07/28/21 09:00 Ergocalciferol 1,250 Mcg (50,000 Iu) Capsule PO [facility] Ferrous Sulfate 325 mg 07/24/21 09:00 Ferrous Sulfate 325 Mg Tab PO DAILY [facility] Gabapentin 400 mg 02/17/22 22:00 07/23/21 21:52 Gabapentin 400 Mg Cap PO 400 mg TID ADDISON Administration Heparin Sodium (Porcine) 5,000 unit 07/23/21 21:00 07/23/21 21:52 Heparin Sodium,Porcine/Pf 5,000 Unit/0.5 Ml Syringe SQ 5,000 unit Q12HR ADDISON Administration Hydromorphone HCl 0.5 mg 07/23/21 17:33 Hydromorphone 1 Mg/Ml 1 Ml Syringe IVP Q4HR PRN Severe Pain Sodium Chloride 1,000 mls @ 75 mls/hr 07/23/21 16:15 07/24/21 05:33 Saline 0.9% IV 75 mls/hr .[id number] ADDISON Administration Insulin Aspart 44 unit 07/23/21 18:00 07/23/21 18:45 Insuln Asp Prt/Insulin Aspart 100 Unit/Ml 10 Ml Vial SQ 44 unit W/SUPPER ADDISON Administration Insulin Aspart 36 unit 07/24/21 07:30 Insuln Asp Prt/Insulin Aspart 100 Unit/Ml 10 Ml Vial SQ W/BRKFST ADDISON Insulin Aspart 0 unit 07/23/21 21:00 07/23/21 21:52 Insulin Aspart (Novolog) 100 Unit/Ml Vial SQ 4 unit ACHS ADDISON Administration Protocol Ketorolac Tromethamine 15 mg 07/23/21 17:34 07/23/21 18:44 Ketorolac 30 Mg/Ml 1 Ml Vial IVP 07/28/21 17:35 15 mg Q6H PRN Administration Moderate Pain Levothyroxine Sodium 150 mcg 07/24/21 06:30 07/24/21 05:32 Levothyroxine 75 Mcg Tab PO 150 mcg DAILY@0630 [facility] Administration Lisinopril 5 mg 07/24/21 09:00 Lisinopril 5 Mg Tab PO DAILY [facility] Miscellaneous Information 1 each 07/23/21 17:31 Magnesium Replacement Protocol 1 Each Mis MISCELLANE DAILY PRN Per Protocol Protocol Miscellaneous Information 1 each 07/23/21 17:31 Potassium Replacement Protocol 1 Each Misc MISCELLANE DAILY PRN Per Protocol Protocol Naloxone HCl 0.2 mg 07/23/21 16:06 Naloxone 0.4 Mg/Ml 1 Ml Vial IV Q2M PRN Opioid Reversal Pantoprazole Sodium 40 mg 07/24/21 07:30 Pantoprazole 40 Mg Tablet PO AC-BRKFST ADDISON Intake and Output 07/23/21 07/24/21 07/24/21 22:59 06:59 14:59 Other: # Voids 2 2 Weight 153.314 kg 07/23/21 14:36 07/23/21 14:36
[2021-07-24] MEDS ORDERED: PANTOPRAZOLE 40 MG TABLET PO SCH (07:30)
[2021-07-24] MEDS ORDERED: INSULN ASP PRT/INSULIN ASPART 100 UNIT/ML 10 ML VIAL SQ SCH (07:30)
[2021-07-24] MEDS: HEPARIN SODIUM,PORCINE/PF 5,000 UNIT/0.5 ML SYRINGE SQ SCH (08:41)
[2021-07-24] MEDS: GABAPENTIN 400 MG CAP PO SCH ×2 (08:42→16:41)
[2021-07-24] MEDS: KETOROLAC 30 MG/ML 1 ML VIAL IVP PRN (08:52)
[2021-07-24] MEDS ORDERED: atenoloL 25 MG TAB PO SCH (09:00)
[2021-07-24] MEDS ORDERED: CITALOPRAM HYDROBROMIDE 20 MG TAB PO SCH (09:00)
[2021-07-24] MEDS ORDERED: CLOPIDOGREL 75 MG TAB PO SCH (09:00)
[2021-07-24] MEDS ORDERED: FERROUS SULFATE 325 MG TAB PO SCH (09:00)
[2021-07-24] MEDS ORDERED: lisinopriL 5 MG TAB PO SCH (09:00)
[2021-07-24 10:49] LABS: African American GFR (CKD) 106.9 (60.0-200.0); Albumin 3.2 g/dL (3.8-4.9); Albumin/Globulin Ratio 1.28 (1.60-3.17); Anion Gap 12.2 mmol/L (10.00-18.00); BUN/Creat Ratio 13.63 Ratio (12.00-20.00); Blood Urea Nitrogen 10.9 mg/dL (9.0-27.0); Calcium 8.5 mg/dL (8.7-10.3); Carbon Dioxide 22.8 mmol/L (20.0-27.5); Globulin 2.5 g/dL (1.6-3.3); Non-African American GFR(CKD) 92.2 (60.0-200.0); Potassium 4.1 mmol/L (3.5-5.5); Total Bilirubin 0.2 mg/dL (0.30-1.20); Total Protein 5.7 g/dL (6.2-8.2)
[2021-07-24 10:51] LABS: Basophils # (A) 0.02 X 10*3/uL (0.00-0.10); Basophils % (A) 0.2 %; Eosinophils # (A) 0.15 X 10*3/uL (0.04-0.35); Eosinophils % (A) 1.3 %; HGB 12.9 g/dL (12.0-15.0); Immature Grans, Automated 0.4 %; Lymphocytes # (A) 1.79 X 10*3/uL (0.90-5.00); Lymphocytes % (A) 16.1 %; MCH 31.7 pg (27.0-32.0); MCHC 32.3 g/dL (32.0-37.0); MCV 98.3 fL (80.0-97.0); Mean Platelet Volume 9.7 fL (9.5-12.2); Monocytes # (A) 0.64 X 10*3/uL (0.20-1.00); Monocytes % (A) 5.7 %; NRBC Per 100 WBC 0 /100 WBCS (0.0-0.0); Neutrophils % (A) 76.3 %; Platelet Count 264 X 10*3/uL (140-440); RBC 4.07 X 10*6/uL (4.10-5.20); RDW 12.7 % (11.5-14.5); WBC 11.14 X 10*3/uL (4.50-10.00)
[2021-07-24] MEDS: INSULIN ASPART (NovoLOG) 100 UNIT/ML VIAL SQ SCH ×2 (11:51→13:37)
--- NOTE | 2021-07-24 12:07 | P.CNNES ---
History of Present Illness Consult date: 07/24/21 Requesting physician: Jacqui Bolton Reason for Consult: recent seizure?? History of Present Illness: This is 41-year-old woman with medical history of diabetes, hypertension, hyperlipidemia, pulmonary embolism (2019), tobacco use who presented emergency department on 07/23/2021 because of right rib pain. On 07/21/2021, the patient had a syncopal episode and was found down by her 12 year-old son. He called EMS and was notified to perform CPR. Per the patient she was notified by her son that she did not having any jerking of extremities, foaming around the mouth. But he stated her eyes were open and disconjugate but no fixed gaze deviation. She unsure of duration of episode. She denies any urinary incontinence, bowel incontinence, tongue bite or soreness of tongue. She was told she was sweating during the episode. She denies any prior history of syncopal episodes or history of seizures. She denies history of stroke or TIA in the past. She came to the hospital on 07/21/2021 but left AMA and said it is because "I am a single mother". She has an aunt with history of seizures. She denies of any neur ological deficits. She denies of headache. She smokes 3/4 of Pack per day for years. She socially drinks alcohol and denies any illicit drug use. Patient is on Plavix 75 mg daily, atenolol 25 minutes daily, Zestril 500 g daily, Celexa, Crestor 10 mg daily. Some of the workup in the hospital consisted of: Initial vital signs his blood pressure of 179/80, heart rate of 97, initial temperature of 99.9 Fahrenheit oral but she has not had any further fevers, respiratory of 18 and pulse ox of 95 at room air. Patient initial blood cells 16.3 and a repeat is 11.14. Initial vital signs his sodium is 131, creatinine is 0.64, glucose is 237, calcium is 8.9, magnesium is 1.5, AST and ALT is within normal limits PT, PTT and INR is within normal limits Urinalysis is negative for urinary tract infection. Urine hCG is noninfected. Browning virus PCR was not detected. Review of Systems Review of system: The 12 point system was reviewed and apparent positive and ne gative per HPI. Past Medical History Past Medical History: Diabetes Mellitus, Pulmonary Embolus (PE), Thyroid Disorder Additional Past Medical History / Comment(s): morbid obesity, ABD HERNIA, ''FLESH EATING DISEASE'' ,covid 06/27 History of Any Multi-Drug Resistant Organisms: None Reported Past Surgical History: Section Additional Past Surgical History / Comment(s): 2 c-sections, surgical debridement of buttocks Past Anesthesia/Blood Transfusion Reactions: Motion Sickness Additional Past Anesthesia/Blood Transfusion Reaction / Comment(s): CLAUSTERPHOBIA Past Psychological History: Anxiety, Depression Additional Psychological History / Comment(s): PT HAS 2 CHILDREN THAT LIVES WITH HER-HER NINE YEAR OLD HAS ADD AND ODD (STRESSFULL AT TIMES) FOR PT.PT WORKS OUT SIDE THE [employer] AND 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 Smoking Status: Current every day smoker Past Alcohol Use History: Rare Additional Past Alcohol Use History / Comment(s): STARTED SMOKING AROUND AGE 16, ROLLS OWN CIG GOES THRU 200 IN W WEEKS TIME.SMOKING BOOKLET LEFT WITH PT Past Drug Use History: None Reported - Past Family History Mother Additional Family Medical History / Comment(s): MIGRAINES, HAS WATER ON HER BRAIN Father History Unknown: Yes Additional Family Medical History / Comment(s): PTS DAD WHEN SHE WAS 14 Medications and Allergies Home Medications Medication Instructions Recorded Confirmed Type metFORMIN HCL [metFORMIN HCL ER] 1,000 mg PO BID-W/MEALS 01/28/15 07/23/21 History Cyclobenzaprine [Flexeril] 10 mg PO TID PRN 05/19/18 07/23/21 History Clopidogrel [Plavix] 75 mg PO DAILY 05/18/19 07/23/21 History Ferrous Sulfate [Iron (65 MG 325 mg PO DAILY 05/18/19 07/23/21 History Elemental)] Rosuvastatin [Crestor] 10 mg PO HS 11/04/20 07/23/21 History atenoloL 25 mg PO DAILY 11/04/20 07/23/21 History lisinopriL [Zestril] 5 mg PO DAILY 11/04/20 07/23/21 History Citalopram Hydrobromide [CeleXA] 40 mg PO DAILY 07/23/21 07/23/21 History Ergocalciferol (Vitamin D2) 1,250 mcg PO TU 07/23/21 07/23/21 History [Drisdol (50,000 Iu)] Gabapentin [Neurontin] 400 mg PO TID 07/23/21 07/23/21 History Insulin Aspart Protam & Aspart 36 unit SQ W/BRKFST 07/23/21 07/23/21 History [NovoLOG MIX 70-30 Flexpen] Insulin Aspart Protam & Aspart 44 unit SQ W/SUPPER 07/23/21 07/23/21 History [NovoLOG MIX 70-30 Flexpen] Levothyroxine Sodium [Synthroid] 150 mcg PO DAILY 07/23/21 07/23/21 History Omeprazole 40 mg PO DAILY 07/23/21 07/23/21 History Acetaminophen Tab [Tylenol] 650 mg PO Q6HR PRN tab 07/24/21 Rx HYDROcodone/APAP 5-325MG [[place] 1 tab PO Q6HR PRN #9 tab 07/24/21 Rx 5-325] Allergies Allergy/AdvReac Type Severity Reaction Status Date / Time adhesive AdvReac Unknown Verified 07/23/21 17:13 Physical Examination - Vital Signs Vital Signs: Vital Signs Temp Pulse Pulse Resp BP BP Pulse Ox 07/24/21 07:00 98.8 F 72 16 125/84 94 L 07/24/21 02:39 98.3 F 73 18 122/83 92 L 07/23/21 21:13 97.8 F 70 19 142/75 93 L 07/23/21 13:29 99.9 F H 97 18 179/80 95 Intake and Output 07/23/21 07/24/21 07/24/21 22:59 06:59 14:59 Other: # Voids 2 2 Weight 153.314 kg GENERAL: The patient is a morbid obese woman, sitting in a chair and is not in acute distress. CHEST: The heart rate is regular rate rhythm. No murmurs to auscultation. No carotid bruit bilaterally. LUNG: Clear to auscultation bilaterally no wheezing noted throughout. Not labored breathing. ABDOMEN/GI: Bowel sounds present in all 4 quadrants. No tenderness to palpation throughout. NEUROLOGICAL: Higher mental function: The patient is awake, alert, oriented to self, place and time. Patient is following commands. No aphasia and no neglect. Cranial nerves: The pupils are round, equal and reactive to light and accommodation. Visual purvis are full to confrontation throughout. Extraocular movement is intact no nystagmus is noted. Facial sensation is normal to touch throughout. The facial strength is normal throughout. Hearing is normal bilaterally to hand rub. Tongue is midline and moved [id number] without any difficulty. No dysarthria is noted. Shoulder shrug is normal bilaterally. Motor:Gait is deferred. The strength is 5 over 5 throughout. Normal tone and bulk. Cerebellum: Normal finger to nose heel to james bilaterally. Sensation: Sensation is normal to touch throughout. Reflexes (right/left): 2+ throughout. Plantars are downgoing bilaterally. Results - Laboratory Findings CBC and BMP: 07/24/21 06:10 07/24/21 06:10 Abnormal Lab Findings: Abnormal Labs 07/23/21 07/23/21 07/23/21 13:38 14:36 14:36 WBC 16.3 H Neutrophils # 13.4 H ESR APTT 21.3 L Sodium Glucose POC Glucose (mg/dL) 229 H Magnesium C-Reactive Protein Urine Glucose (UA) 07/23/21 07/23/21 07/23/21 14:36 16:47 18:34 WBC Neutrophils # ESR APTT Sodium 131 L Glucose 237 H POC Glucose (mg/dL) 244 H Magnesium 1.5 L C-Reactive Protein Urine Glucose (UA) 3+ H 07/23/21 07/23/21 07/23/21 18:54 18:54 21:20 WBC Neutrophils # ESR 74 H APTT Sodium Glucose POC Glucose (mg/dL) 177 H Magnesium C-Reactive Protein 14.4 H Urine Glucose (UA) 07/24/21 07:20 WBC Neutrophils # ESR APTT Sodium Glucose POC Glucose (mg/dL) 152 H Magnesium C-Reactive Protein Urine Glucose (UA) Assessment and Plan Assessment: New onset Syncope (witnessed by son) of unknown etiology. It appears more cardiac especially with multiple cardiac risk factors (she had no jerking of extremities, foaming around the mouth, urine or bowel incontinence or tongue bite). Cannot exclude central cause. Right rib pain from chest compression History of pulmonary embolism 2019 Mild hyponatremia on presentation and on repeated it back to normal. Diabetes mellitus Hypertension Hyperlipidemia Tobacco use Plan: Ordered routine EEG. I ordered CT of the head without and carotid duplex Ordered urine drug screen. Every 4 neuro checks Cardiology is on board in the ordered a 2-D echo. We'll defer the rest of the medical management to the primary team Patient was counseled on tobacco cessation Patient was notified since she has an episode of LOC, per [place] DMV, to avoid driving for 6 months until no further episode. To avoid heights, using heavy machinery and swim unassisted. Upon discharge recommend the patient follow up with a neurologist within 1-2 weeks. Consider MRI of the brain as an outpatient. The plan discussed with the patient as well as the nurse. Thank you for the consultation. UPDATE: Preliminary routine EEG is normal. Therefore, I ordered 2.5 hours ambulatory EEG and that is to be coordinated by technical coordinator. Carotid duplex: Is reported as no significant hemodynamic stenosis as visualized CT of the head is reported as few left frontal white matter and left lentiform nucleus multi metric echodensities as described above. These could be artifactual however lacunar infarct of undetermined age or other white matter abnormality cannot be excluded. Spoke with the primary team and it was in agreement for the patient to get MRI of the brain as an outpatient. There is no further workup needed at this time. Patient is clear from neurology perspective. Gustavo Ferguson M.D. Neuro-hospitalist Time with Patient: Greater than 30
--- NOTE | 2021-07-24 12:30 | ECHOF ---
Referral Reason:syncope MEASUREMENTS -------- HEIGHT: 167.6 cm WEIGHT: 153.3 kg BP: 125/84 RVIDd: 3.1 cm (< 3.3) IVSd: 1.7 cm (0.6 - 1.1) LVIDd: 4.8 cm (3.9 - 5.3) LVPWd: 1.6 cm (0.6 - 1.1) IVSs: 2.2 cm LVIDs: 3.1 cm LVPWs: 2.0 cm LA Diam: 3.6 cm (2.7 - 3.8) LAESV Index (A-L): 15.90 ml/m Ao Diam: 3.0 cm (2.0 - 3.7) AV Cusp: 1.7 cm (1.5 - 2.6) MV EXCURSION: 16.963 mm (> 18.000) MV EF SLOPE: 62 mm/s (70 - 150) EPSS: 0.7 cm MV E Kahlil: 0.99 m/s MV DecT: 248 ms MV A Kahlil: 0.89 m/s MV E/A Ratio: 1.12 RAP: 5.00 mmHg RVSP: 26.68 mmHg FINDINGS -------- Sinus rhythm. This was a technically difficult study with suboptimal views. The left ventricular size is normal. There is severe concentric left ventricular hypertrophy. Ove rall left ventricular systolic function is low-normal with, an EF between 50 - 55 %. The right ventricle is normal in size. Normal LA size by volume 22+/-6 ml/m2. The right atrial size is normal. 3 ml of lumason used Interatrial and interventricular septum intact. The aortic valve is trileaflet, and appears structurally normal. No aortic stenosis or regurgitation. The mitral valve is normal. The tricuspid valve appears structurally normal. Mild tricuspid regurgitation present. Right vent ricular systolic pressure is normal at < 35 mmHg. The pulmonic valve was not well visualized. The aortic root size is normal. IVC Not well visulized. Echo free space may represent effusion or a pericardial fat pad. CONCLUSIONS -------- 1. This was a technically difficult study with suboptimal views. 2. There is severe concentric left ventricular hypertrophy. 3. Overall left ventricular systolic function is low-normal with, an EF between 50 - 55 %. 4. Normal LA size by volume 22+/-6 ml/m2. 5. 3 ml of lumason used 6. The aortic valve is trileaflet, and appears structurally normal. No aortic stenosis or regurgitati on. 7. Mild tricuspid regurgitation present. CARPENTRY SPECIALIST: Aishwarya Gentile RDCS
--- NOTE | 2021-07-24 12:37 | CT ---
EXAMINATION TYPE: CT brain wo con DATE OF EXAM: 07/24/2021 COMPARISON: None available HISTORY: Syncope CT DLP: 1135 mGycm. Automated Exposure Control for Dose Reduction was Utilized. TECHNIQUE: CT scan of the head is performed without contrast. FINDINGS: Artifactual images. Millimetric left superior frontal subcortical white matter and left lentiform nuc leus hypodensities, nonspecific and could represent small lacunar infarcts of indeterminate age. Othe rwise unremarkable morphology of the cerebral hemispheres, cerebellum and brainstem. No acute intracranial hemorrhage or gross acute cortical infarct. No midline shift or herniation. Unr emarkable basal cisterns, sella and CP angles. No gross space-occupying lesion, vasogenic edema or ma ss effect. Questionable bilateral proptosis, please correlate clinically. Unremarkable orbits otherwise. Clear v isualized paranasal sinuses and mastoid air cells. Unremarkable calvarial bones. IMPRESSION: Few left frontal white matter and left lentiform nucleus millimetric echodensities as described above . They could be artifactual however lacunar infarcts of indeterminate age or other white matter abnor mality cannot be excluded. Recommend clinical correlation and further workup. Further MRI assessment can be considered. Otherwis e no acute intracranial abnormality or space-occupying lesion. Questionable bilateral proptosis.
[2021-07-24 12:41] LABS: Glucose,Whole Blood 154 mg/dL (75-99)
--- NOTE | 2021-07-24 13:18 | EEG ---
ELECTROENCEPHALOGRAM REPORT DATE OF SERVICE: 07/24/2021 CLINICAL HISTORY: This is a 41-year-old woman with a recent syncopal episode. The video EEG is obtained to evaluate for seizure epileptiform activity. RELEVANT MEDICATION: Patient is not on any antiepileptic drugs. EEG TYPE: A routine 21-channel EEG is performed with video using the 10/20 electrode placement system. DESCRIPTION: Wakefulness and drowsiness are obtained. During wakefulness the posterior- dominant rhythm consists of low voltage that is well modulated and well sustained of 9 to 10 hertz activity. There is no physiological stage II sleep architecture. There is no focal slowing. Interictal and ictal is none. ACTIVATION PROCEDURE: Photic stimulation did evoke a posterior driving response at multiple flash frequencies. There is no abnormality during the photic stimulation. Hyperventilation is not performed. CLINICAL INTERPRETATION: This is a normal routine EEG. There is no focal slowing, epileptiform discharges or seizure on the EEG. Clinical correlation is recommended. SWETHA / MARINA: [id number] / MTDD
--- NOTE | 2021-07-24 13:26 | US ---
EXAMINATION TYPE: US carotid duplex BILAT DATE OF EXAM: 07/24/2021 COMPARISON: NONE CLINICAL HISTORY: syncope. Exam done portable EXAM MEASUREMENTS: RIGHT: Peak Systolic Velocity (PSV) cm/sec ----- Right CCA: 71.7 ----- Right ICA: 84.4 ----- Right ECA: 109.0 ICA/CCA ratio: 1.2 RIGHT: End Diastole cm/sec ----- Right CCA: 26.4 ----- Right ICA: 51.2 ----- Right ECA: 19.0 LEFT: Peak Systolic Velocity (PSV) cm/sec ----- Left CCA: 69.0 ----- Left ICA: 87.2 ----- Left ECA: 84.9 ICA/CCA ratio: 1.3 LEFT: End Diastole cm/sec ----- Left CCA: 23.2 ----- Left ICA: 41.0 ----- Left ECA: 13.1 VERTEBRALS (direction of flow): Right Vertebral: Antegrade Left Vertebral: Antegrade Rhythm: Normal No significant stenosis intimal thickening and mild atherosclerotic changes. IMPRESSION: 1. No significant hemodynamic stenosis as visualized. Criteria for Assigning % of Stenosis / Diameter reduction (Estimation based on the indirect measurements of the internal carotid artery velocities (ICA PSV). 1. Normal (no stenosis)=ICA PSV < 125 cm/s: ratio < 2.0: ICA EDV<40 cm/s. 2. Less than 50% stenosis=ICA PSV < 125 cm/s: ratio < 2.0: ICA EDV<40 cm/s. 3. 50 to 69% stenosis=ICA PSV of 125 to 230 cm/s: ration 2.0 ? 4.0: ICA EDV 40-100 cm/s. 4. Greater than 70% stenosis to near occlusion= ICA PSV > 230 cm/s: ratio > 4.0: ICA EDV > 100 cm/s. 5. Near occlusion= ICA PSV velocities may be low or undetectable: variable ratio and ICA EDV. 6. Total occlusion=unable to detect flow.
[2021-07-24 14:04] VITALS: BP 114/73; PULSE 65; RESP 17; TEMP 97.9
--- NOTE | 2021-07-27 09:12 | P.DS ---
Providers Date of admission: 07/23/21 16:06 Expected date of discharge: 07/24/21 Attending physician: Jacqui Bolton Consults: 07/23/21 16:06 Consult Physician Routine Consulting Provider: Rigo Rivera Consult Reason/Comments: syncope Do you want consulting provider notified?: Yes 07/23/21 17:35 Consult Physician Routine Consulting Provider: Gustavo Ferguson Consult Reason/Comments: recent seizure?? Do you want consulting provider notified?: Yes Primary care physician: Deisy Mae Hospital Course: Final diagnosis Acute right lower lobe chest pain, rule out rib fracture, ruled out pulmonary embolism History of recent seizure with syncope and bystander CPR Diabetes mellitus type 2 History of PE Full code Discharge disposition Patient is being discharged in a stable condition with guarded prognosis to home. Patient will follow-up with Dr. Olivas in the outpatient setting upon discharge. Patient is to also follow-up with Dr. rosas neurologist in community [facility]. Patient is to continue with current medication regimen of Plavix upon discharge. Total time taken is greater than 35 minutes. Hospital course This is a 41-year-old female who was recently admitted with syncopal episode and episode of unresponsiveness and admitted and was being closely monitored. Patient had previously previously left AGAINST MEDICAL ADVICE and came back for further evaluation with possible seizure disorder and was evaluated by neurology and seizures ruled out. Patient to undergo EEG and recommend outpatient follow- up with urology in one week. Patient was also evaluated by cardiology and underwent 2-D echo which was normal and will follow-up in the outpatient setting with cardiology as needed. Currently no reports of chest pain, shortness of breath, or palpitations. Patient is afebrile. No reports of nausea or vomiting and patient is tolerating diet. Patient will be discharged home today. On exam vital signs are stable. Cardio S1, S2 are muffled. Respiratory system shows diminished breath sounds at the bases with no wheezing or rhonchi noted. Abdomen is soft and obese, and nontender. Nervous system shows no focal deficits. Please refer to medication reconciliation sheet for a list of medications. The impression and plan of care has been dictated by Michelle Holley, nurse practitioner as directed. MD Damaris I have performed a history and examination and MDM of this patient, discussed the same with the dictator, and agree with the dictator's assessment and plan as written ,documented as a scribe. Based on total visit time, I have performed more than 50% of the visit. Any additional findings or plans will be noted. Patient Condition at Discharge: Stable Plan - Discharge Summary Discharge Rx Participant: Yes New Discharge Prescriptions: New Acetaminophen Tab [Tylenol] 650 mg PO Q6HR PRN tab PRN Reason: Mild Pain Or Fever > 100.5 HYDROcodone/APAP 5-325MG [[place] 5-325] 1 tab PO Q6HR PRN #9 tab PRN Reason: Pain Continue metFORMIN HCL [metFORMIN HCL ER] 1,000 mg PO BID-W/MEALS Cyclobenzaprine [Flexeril] 10 mg PO TID PRN PRN Reason: Muscle Spasm Clopidogrel [Plavix] 75 mg PO DAILY Ferrous Sulfate [Iron (65 MG Elemental)] 325 mg PO DAILY lisinopriL [Zestril] 5 mg PO DAILY atenoloL 25 mg PO DAILY Levothyroxine Sodium [Synthroid] 150 mcg PO DAILY Insulin Aspart Protam & Aspart [NovoLOG MIX 70-30 Flexpen] 36 unit SQ W/BRKFST Gabapentin [Neurontin] 400 mg PO TID Citalopram Hydrobromide [CeleXA] 40 mg PO DAILY Rosuvastatin [Crestor] 10 mg PO HS Omeprazole 40 mg PO DAILY Insulin Aspart Protam & Aspart [NovoLOG MIX 70-30 Flexpen] 44 unit SQ W/SUPPER Ergocalciferol (Vitamin D2) [Drisdol (50,000 Iu)] 1,250 mcg PO TU Discharge Medication List metFORMIN HCL [metFORMIN HCL ER] 1,000 mg PO BID-W/MEALS 01/28/15 [History] Cyclobenzaprine [Flexeril] 10 mg PO TID PRN 05/19/18 [History] Clopidogrel [Plavix] 75 mg PO DAILY 05/18/19 [History] Ferrous Sulfate [Iron (65 MG Elemental)] 325 mg PO DAILY 05/18/19 [History] Rosuvastatin [Crestor] 10 mg PO HS 11/04/20 [History] atenoloL 25 mg PO DAILY 11/04/20 [History] lisinopriL [Zestril] 5 mg PO DAILY 11/04/20 [History] Citalopram Hydrobromide [CeleXA] 40 mg PO DAILY 07/23/21 [History] Ergocalciferol (Vitamin D2) [Drisdol (50,000 Iu)] 1,250 mcg PO TU 07/23/21 [History] Gabapentin [Neurontin] 400 mg PO TID 07/23/21 [History] Insulin Aspart Protam & Aspart [NovoLOG MIX 70-30 Flexpen] 36 unit SQ W/BRKFST 07/23/21 [History] Insulin Aspart Protam & Aspart [NovoLOG MIX 70-30 Flexpen] 44 unit SQ W/SUPPER 07/23/21 [History] Levothyroxine Sodium [Synthroid] 150 mcg PO DAILY 07/23/21 [History] Omeprazole 40 mg PO DAILY 07/23/21 [History] Acetaminophen Tab [Tylenol] 650 mg PO Q6HR PRN tab 07/24/21 [Rx] HYDROcodone/APAP 5-325MG [[place] 5-325] 1 tab PO Q6HR PRN #9 tab 07/24/21 [Rx] Follow up Appointment(s)/Referral(s): Carmelita Olivas MD [Primary Care Provider] - 1-2 days Andrea Rosas MD [Medical Doctor] - 1 Week Ambulatory/Diagnostic Orders: Complete Blood Count w/diff [LAB.AMB] Time Frame: 3 Days, Location: None Selected Patient Instructions/Handouts: Syncope (DC), Managing Diabetes During Sick Days (ED) Activity/Diet/Wound Care/Special Instructions: Activity Limited until follow-up Follow-up primary care provider on discharge Continue taking current medications Follow-up with neurologist in the outpatient setting in 1 week Follow-up cardiology outpatient Continue heart healthy consistent carb diet Continue to monitor blood sugars closely and keep a diary of readings for primary care follow-up Recommend repeat labs of CBC and CMP in 2-3 days Discharge Disposition: HOME SELF-CARE
[2021-07-28] MEDS ORDERED: ERGOCALCIFEROL 1,250 MCG (50,000 IU) CAPSULE PO SCH (09:00)
== END 2021-07-24 16:50 | disposition home or self-care (01) ==
LOC: EC 13:20 → 6NMEDSUR 16:06
PROVIDERS: ADMIT Hospitalist; ATTEND Hospitalist
DX: R07.89 Other chest pain (principal); R55 Syncope and collapse; R07.81 Pleurodynia; I11.9 Hypertensive heart disease without heart failure; E11.9 Type 2 diabetes mellitus without complications; E87.1 Hypo-osmolality and hyponatremia; K46.9 Unspecified abdominal hernia without obstruction or gangrene; E66.01 Morbid (severe) obesity due to excess calories; Z68.43 Body mass index [BMI] 50.0-59.9, adult; F32.A Depression, unspecified; F41.9 Anxiety disorder, unspecified; I44.4 Left anterior fascicular block; D72.829 Elevated white blood cell count, unspecified; E03.9 Hypothyroidism, unspecified; E78.5 Hyperlipidemia, unspecified; F17.210 Nicotine dependence, cigarettes, uncomplicated; F40.240 Claustrophobia; Z20.822 Contact with and (suspected) exposure to COVID-19; Z79.02 Long term (current) use of antithrombotics/antiplatelets; Z79.890 Hormone replacement therapy; Z79.4 Long term (current) use of insulin; Z79.84 Long term (current) use of oral hypoglycemic drugs; Z79.899 Other long term (current) drug therapy; Z91.048 Other nonmedicinal substance allergy status; Z86.711 Personal history of pulmonary embolism; Z86.16 Personal history of COVID-19; Z86.73 Personal history of transient ischemic attack (TIA), and cerebral infarction without residual deficits; Z87.2 Personal history of diseases of the skin and subcutaneous tissue; Z98.891 History of uterine scar from previous surgery; Z98.890 Other specified postprocedural states; Z71.6 Tobacco abuse counseling; Z82.0 Family history of epilepsy and other diseases of the nervous system; R56.9 Unspecified convulsions
CPT/HCPCS: 96376; 96372 ×2; 96375; 96365; 99285; 36415; 95816; 85379; 80053 ×2; 85652; 83735 ×2; 84484; 85025 ×2; 85610; 85730; 86140; 81003; 81025; 87635; 71101; 93880; 70450; G0378 ×2; C8929; J1885 ×2; J3475; J1644 ×2; 93306

== ENCOUNTER → 2021-07-30 | Outpatient (CLI) | payer OTHER | LOC: NEUROMAIN 07:50 | PROVIDERS: ATTEND Student in an Organized Health Care Education/Training Program | DX: R55 Syncope and collapse (principal); F17.200 Nicotine dependence, unspecified, uncomplicated; Z91.048 Other nonmedicinal substance allergy status | CPT/HCPCS: 95713 ==

== ENCOUNTER 2022-04-22 11:28 | Inpatient (IN) | payer OTHER ==
[2022-04-22 12:25] LABS: Glucose,Whole Blood 571 mg/dL (70-110)
[2022-04-22] MEDS ORDERED: SODIUM CHLORIDE 0.9% 1,000 ML IV STA (12:30)
--- NOTE | 2022-04-22 12:35 | ED ---
General Adult HPI - General Chief complaint: Neuro Symptoms/Deficit Stated complaint: Right sided numbness Time Seen by Provider: 04/22/22 12:12 Source: patient, RN notes reviewed, old records reviewed Mode of arrival: ambulatory - History of Present Illness Initial comments: Was notified when the patient was placed in a room at approximately 12:10 PM, my shift began at 12.. Patient presents emergency Department complaining of neurological symptoms. States that symptoms have been on and off for the last 2 weeks but are worse today and more prolonged. She states over the last 2 weeks, she is having intermittent episodes of right-sided arm, lips, leg numbness. These episodes last for approximately 10 minutes at a time and then passed. She states today sometime between 7 and 8 AM, the symptoms returned. States they have not improved. Does endorse reduced sensation of the right upper extremity, right lower extremity. Also endorses decreased sensation of the entire right side of the face which is different. She has also noticed some difficulty with walking and symptoms are present. Also notices some clumsiness with her right hand. She is a history of diabetes, thyroid disorder. She is homeless. Unknown what her sugars are running. Is not fully compliant with medications. Presents with further evaluation at this time.Patient was attributing this to increased stressors in her life, however became concerned when her symptoms did not improve today. - Related Data Home Medications Medication Instructions Recorded Confirmed Cyclobenzaprine [Flexeril] 10 mg PO TID PRN 05/19/18 04/22/22 Clopidogrel [Plavix] 75 mg PO DAILY 05/18/19 04/22/22 Ferrous Sulfate [Iron (65 MG 325 mg PO DAILY 05/18/19 04/22/22 Elemental)] Rosuvastatin [Crestor] 10 mg PO HS 11/04/20 04/22/22 atenoloL 25 mg PO DAILY 11/04/20 04/22/22 Insulin Aspart Prot/Insuln Asp 45 - 48 unit SQ AC-BID 07/23/21 04/22/22 [NovoLOG MIX 70-30 Flexpen] Levothyroxine Sodium [Synthroid] 150 mcg PO DAILY 07/23/21 04/22/22 Omeprazole 40 mg PO DAILY 07/23/21 04/22/22 Citalopram Hydrobromide [CeleXA] 20 mg PO DAILY 04/22/22 04/22/22 Gabapentin 600 mg PO HS PRN MDD 900mg 04/22/22 04/22/22 Gabapentin [Neurontin] 300 mg PO BID PRN MDD 900 mg 04/22/22 04/22/22 lisinopriL [Zestril] 20 mg PO DAILY 04/22/22 04/22/22 metFORMIN HCL 1,000 mg PO BID 04/22/22 04/22/22 Allergies Allergy/AdvReac Type Severity Reaction Status Date / Time adhesive AdvReac Unknown Verified 04/22/22 13:34 Review of Systems ROS Statement: Those systems with pertinent positive or pertinent negative responses have been documented in the HPI. Review of Systems: CONST: Denies fever EYES: Denies blurry vision ENT: Denies nasal congestion C/V: Denies Chest pain RESP: Denies shortness of breath GI: Denies abdominal pain : Denies dysuria SKIN: Denies rash. MSK: Denies joint pain. NEURO: Denies headache ROS Other: All systems not noted in ROS Statement are negative. Past Medical History Past Medical History: Diabetes Mellitus, Pulmonary Embolus (PE), Thyroid Disorder Additional Past Medical History / Comment(s): morbid obesity, ABD HERNIA, ''FLESH EATING DISEASE'' ,covid 06/27 History of Any Multi-Drug Resistant Organisms: None Reported Past Surgical History: Section Additional Past Surgical History / Comment(s): 2 c-sections, surgical debridement of buttocks Past Anesthesia/Blood Transfusion Reactions: Motion Sickness Additional Past Anesthesia/Blood Transfusion Reaction / Comment(s): CLAUSTERPHOBIA Past Psychological History: Anxiety, Depression Smoking Status: Current every day smoker Past Alcohol Use History: Rare Past Drug Use History: None Reported, Marijuana - Past Family History Mother Additional Family Medical History / Comment(s): MIGRAINES, HAS WATER ON HER BRAIN Father History Unknown: Yes Additional Family Medical History / Comment(s): PTS DAD WHEN SHE WAS 14 General Exam - General Exam Comments Initial Comments: General: Appears in no acute distress. HEAD: Normal with no signs of head trauma. EYES: PERRLA, EOMI, conjunctiva normal, no discharge. Pupils are 2 mm and equal bilaterally. ENT: Hearing grossly intact, normal oropharynx. RESPIRATORY: Clear breath sounds bilaterally. No wheezes, rales, or rhonchi. C/V: Regular rate and rhythm. S1 and S2 auscultated, no edema, peripheral puls es 2+ and intact throughout ABD: Abd is soft, nontender, nondistended EXT: Normal range of motion, no obvious deformity SKIN: No rashes or lesions observed on exposed skin. NEURO: Alert and oriented 4. No focal s strength deficits. NIH is approximately 3. She receives one point for decreased sensation to light touch over the right side of her face, arm, leg. She receives 2 points for ataxia in 2 limbs, her right upper extremity and right lower extremity. Last known well was sometime between 7 and 8 AM. Course Vital Signs 04/22/22 11:44 Temperature 97.6 F Pulse Rate 61 Respiratory 18 Rate Blood Pressure 145/75 O2 Sat by Pulse 98 Oximetry Medical Decision Making - Medical Decision Making Based on the patient's presentation and physical exam, she is been having on again off again neurological complaints over the last 2 weeks. It does seem somewhat worse today and more prolonged with new complaints including clumsiness with her right hand and right leg. NIH is 3 at this time. Last known well was between 7 and 8 AM. I do not believe the patient is a TPA candidate at this time due to her being near the end of her window for TPA, low NIH score, as well as complicated history of intermittent symptoms over the last 2 weeks. We will activate a code stroke. She was in agreement with this plan. Patient's blood sugar was over 500. Vital signs otherwise are within acceptable limits. I did speak with neuro critical care, Dr. Shahid was in agreement with the plan above. He was in agreement holding TPA due to the intermittent symptoms over la st 2 weeks as well as low NIH. We will follow up on imaging. Patient's CT imaging is interpreted by me reveal no signs of acute intracranial process. No bleed. No midline shift. CT angiogram revealed no significant occlusion, no acute intracranial process, no bleed. Radiology called me and als o conveyed these results. I spoke with Dr. Shahid regarding the results and the plan is for medical management and to admit the patient to be evaluated by neurology. I was in agreement with this plan. Patient remains symptomatic with an NIH of 3. Laboratory studies were remarkable for a hyperglycemia but no evidence of DKA. Acetone is negative. No anion gap metabolic acidosis. She is mildly hypo-HMA 1:30 but she received a 1 L bolus. Chest x-ray as interpreted by myself revealed no evidence of acute bony traumatic process, no pneumothorax, no infiltrate. EKG showed no acute cardiopulmonary process. I updated the patient. On reevaluation, patient is unchanged in terms of symptoms. Dysdiadochokinesia of the right hand is somewhat improved. Still has clumsiness with zwbh-[id number] testing with the right foot. I'm concerned for CVA for the patient but cannot definitively say if that is what is causing her current symptoms. Based on the patient's workup, I did recommend admission. She was in agreement this plan. Troponin is slightly elevated to 0.039 but is asymptomatic at this time. We'll continue to trend. She received an aspirin already. She will be started on subcu heparin. Never had chest pain. Never had respiratory complaints. I spoke with the admitting team, GIOVANY Martinez of [facility] who is covering for Dr. Issa who accepted the patient. Patient was admitted to [facility] in stable condition. - Lab Data Result diagrams: 04/22/22 12:35 04/22/22 13:30 Lab Results 04/22/22 04/22/22 04/22/22 Range/Units 12:22 12:35 12:35 WBC 10.2 (3.8-10.6) k/uL RBC 5.35 (3.80-5.40) m/uL Hgb 17.0 H (11.4-16.0) gm/dL Hct 50.5 H (34.0-46.0) % MCV 94.4 (80.0-100.0) fL MCH 31.9 (25.0-35.0) pg MCHC 33.7 (31.0-37.0) g/dL RDW 12.4 (11.5-15.5) % Plt Count 300 (150-450) k/uL MPV 8.5 Neutrophils % 66 % Lymphocytes % 26 % Monocytes % 4 % Eosinophils % 2 % Basophils % 0 % Neutrophils # 6.8 (1.3-7.7) k/uL Lymphocytes # 2.6 (1.0-4.8) k/uL Monocytes # 0.4 (0-1.0) k/uL Eosinophils # 0.2 (0-0.7) k/uL Basophils # 0.1 (0-0.2) k/uL PT 9.5 (9.0-12.0) sec INR 0.8 (<1.2) APTT 21.9 L (22.0-30.0) sec Sodium (137-145) mmol/L Potassium (3.5-5.1) mmol/L Chloride (98-107) mmol/L Carbon Dioxide (22-30) mmol/L Anion Gap mmol/L BUN (7-17) mg/dL Creatinine (0.52-1.04) mg/dL Est GFR (CKD-EPI)AfAm (>60 ml/min/1.73 sqM) Est GFR (CKD-EPI)NonAf (>60 ml/min/1.73 sqM) Glucose (74-99) mg/dL POC Glucose (mg/dL) 571 H (70-110) mg/dL POC Glu Treater Helper ID Jessica Sanchez Calcium (8.4-10.2) mg/dL Total Bilirubin (0.2-1.3) mg/dL AST (14-36) U/L ALT (4-34) U/L Alkaline Phosphatase (38-126) U/L Troponin I (0.000-0.034) ng/mL Total Protein (6.3-8.2) g/dL Albumin (3.5-5.0) g/dL Acetone, Qual (Negative) 04/22/22 04/22/22 Range/Units 13:30 13:30 WBC (3.8-10.6) k/uL RBC (3.80-5.40) m/uL Hgb (11.4-16.0) gm/dL Hct (34.0-46.0) % MCV (80.0-100.0) fL MCH (25.0-35.0) pg MCHC (31.0-37.0) g/dL RDW (11.5-15.5) % Plt Count (150-450) k/uL MPV Neutrophils % % Lymphocytes % % Monocytes % % Eosinophils % % Basophils % % Neutrophils # (1.3-7.7) k/uL Lymphocytes # (1.0-4.8) k/uL Monocytes # (0-1.0) k/uL Eosinophils # (0-0.7) k/uL Basophils # (0-0.2) k/uL PT (9.0-12.0) sec INR (<1.2) APTT (22.0-30.0) sec Sodium 130 L (137-145) mmol/L Potassium 4.4 (3.5-5.1) mmol/L Chloride 94 L (98-107) mmol/L Carbon Dioxide 29 (22-30) mmol/L Anion Gap 7 mmol/L BUN 8 (7-17) mg/dL Creatinine 0.79 (0.52-1.04) mg/dL Est GFR (CKD-EPI)AfAm >90 (>60 ml/min/1.73 sqM) Est GFR (CKD-EPI)NonAf >90 (>60 ml/min/1.73 sqM) Glucose 492 H (74-99) mg/dL POC Glucose (mg/dL) (70-110) mg/dL POC Glu Treater Helper ID Calcium 8.6 (8.4-10.2) mg/dL Total Bilirubin 0.5 (0.2-1.3) mg/dL AST 17 (14-36) U/L ALT 15 (4-34) U/L Alkaline Phosphatase 112 (38-126) U/L Troponin I 0.039 H* (0.000-0.034) ng/mL Total Protein 6.2 L (6.3-8.2) g/dL Albumin 3.5 (3.5-5.0) g/dL Acetone, Qual Negative (Negative) - EKG Data -: EKG Interpreted by Me EKG Comments: 12-lead Electrocardiogram Interpretation Note EKG was reviewed and interpreted by myself. 12-lead ECG performed at 1254 is interpreted by me as revealing normal sinus rhythm at a rate of 65 beats per minute. Left axis deviation. Intervals 209 ms, QR mormonism is 150 ms, QTc is 455 ms. PVC is present. There are chronic T wave inversions in lead aVL. Acute isolated T wave inversion in lead V2.. There were no other acute ST or T wave abnormalities to suggest myocardial ischemia or injury. R wave progression across the precordium was satisfactory. By my interpretation this EKG is non- diagnostic for acute ischemia. When compared with EKG from July 2021, no significant changes. New Isolated T-wave inversion in lead V2. No reciprocal changes. Critical Care Time Critical Care Time: Yes Total Critical Care Time: 35 Critical Care Time: Upon my evaluation, this patient had a high probability of imminent or life- threatening deterioration due to stroke activation, hyperglycemia, neurological deficits, which required my direct attention, intervention, and personal management. I have personally provided 35 minutes of critical care time exclusive of time spent on separately billable procedures. Time includes review of laboratory data, radiology results, discussion with consultants, and monitoring for potential decompensation. Interventions were performed as documented in my note. Disposition Clinical Impression: Neurological deficit present, Ataxia, Uncontrolled diabetes mellitus, Hyperglycemia Narrative: concern for cva Disposition: ADMITTED IP TO THIS HOSP Condition: Stable Time of Disposition: 14:10
[2022-04-22 12:52] LABS: Basophils # (A) 0.1 k/uL (0-0.2); Basophils % (A) 0 %; Eosinophils # (A) 0.2 k/uL (0-0.7); Eosinophils % (A) 2 %; HCT 50.5 % (34.0-46.0); Lymphocytes # (A) 2.6 k/uL (1.0-4.8); Lymphocytes % (A) 26 %; MCH 31.9 pg (25.0-35.0); MCHC 33.7 g/dL (31.0-37.0); MCV 94.4 fL (80.0-100.0); Mean Platelet Volume 8.5; Monocytes # (A) 0.4 k/uL (0-1.0); Monocytes % (A) 4 %; Neutrophils # (A) 6.8 k/uL (1.3-7.7); Neutrophils % (A) 66 %; Platelet Count 300 k/uL (150-450); RBC 5.35 m/uL (3.80-5.40); RDW 12.4 % (11.5-15.5); WBC 10.2 k/uL (3.8-10.6)
--- NOTE | 2022-04-22 12:54 | CT ---
EXAMINATION TYPE: CT brain wo con for TPA CT DLP: 1153.4 mGycm, Automated exposure control for dose reduction was used. DATE OF EXAM: 04/22/2022 12:45 PM COMPARISON: Prior CT Brain from 07/24/2021. CLINICAL INDICATION:Female, 42 years old with history of Neuro deficit, acute, stroke suspected, Righ t sided numbness. TECHNIQUE: Brain: Multiple axial CT images of the brain were obtained without IV contrast. Coronal and sagittal reformats reviewed. FINDINGS: Brain: Extra-axial spaces: No abnormal extra-axial fluid collections. Ventricular system: Within normal limits Cerebral parenchyma: No acute intraparenchymal hemorrhage or mass effect. Few left frontal white mat ter and left lentiform nuclei subcentimeter hypodensities redemonstrated. The burgess-white junction is well differentiated. Cerebellum: Unremarkable. Mass effect: No evidence of midline shift. Intracranial vasculature: unremarkable Soft tissues: Normal. Calvarium/osseous structures: No depressed skull fracture. Paranasal sinuses and mastoid air cells: Clear Visualized orbits: Orbital contents are intact. IMPRESSION: 1. No acute intracranial process. No significant change from prior examination. 2. Redemonstration of a few left frontal and left lentiform nucleus hypodensities which could repres ent prior lacunar infarcts versus demyelination. Further MRI assessment can be considered. Findings called to discuss with Dr. Neftali Muller at 12:50 PM on 04/22/2022.
--- NOTE | 2022-04-22 13:34 | CT ---
EXAMINATION TYPE: CT angio head neck CT DLP: 982.7 mGycm, Automated exposure control for dose reduction was used. DATE OF EXAM: 04/22/2022 1:09 PM COMPARISON: CT brain 04/22/2022, 07/24/2021, carotid ultrasound 07/24/2021. CLINICAL INDICATION:Female, 42 years old with history of Neuro deficit, acute, stroke suspected; PHH, Right sided numbness. TECHNIQUE: Axially acquired helical CT angiogram of the head and neck was obtained with contrast util izing 65 cc of Isovue-370 administered intravenously. Axial images are supplemented with 3D reconstru ctions which were post-processed at an independent workstation. NASCET criteria used. FINDINGS: CTA HEAD: No evidence of acute intracranial hemorrhage, mass effect, or midline shift. The ventricles, sulci, a nd cisterns are unremarkable. The visualized portions of the internal carotid arteries, middle cerebral arteries, anterior cerebral arteries, and posterior cerebral arteries are patent. The basilar and vertebral arteries are patent. CTA NECK: Right Carotid System: The common carotid artery and external carotid artery are patent. The carotid bifurcation demonstrate s no evidence of hemodynamically significant stenosis. The remaining portions of the internal carotid artery demonstrate normal size without significant narrowing. Left Carotid System: The common carotid artery and external carotid artery are patent. The carotid bifurcation demonstrate s no evidence of hemodynamically significant stenosis. The remaining portions of the internal carotid artery demonstrate normal size without significant narrowing. Vertebral arteries are patent without evidence hemodynamically significant stenosis. Left vertebral a rtery is dominant. Bovine aortic arch. The origins of the great vessels are patent. No evidence of hemodynamically signi ficant stenosis. IMPRESSION: 1. No evidence of dissection of the cervical internal carotid arteries or vertebral arteries or any e vidence of significant stenosis at the carotid bifurcations. 2. No evidence of high-grade stenosis or intracranial aneurysm.
--- NOTE | 2022-04-22 13:34 | XR ---
EXAMINATION TYPE: XR chest 2V DATE OF EXAM: 04/22/2022 COMPARISON: 07/23/2021 TECHNIQUE: PA and lateral views submitted. HISTORY: Rt side numbness FINDINGS: The lungs are clear and there is no pneumothorax, pleural effusion, or focal pneumonia. Heart is en larged. No overt failure. Hypertrophic and degenerative change of the spine. IMPRESSION: 1. Cardiomegaly.
[2022-04-22 13:35] LABS: INR 0.8 (<1.2); Prothrombin Time 9.5 sec (9.0-12.0)
[2022-04-22 13:38] LABS: Partial Thromboplastin Time 21.9 sec (22.0-30.0)
[2022-04-22] MEDS ORDERED: ASPIRIN 325 MG TAB PO STA (14:00)
[2022-04-22] MEDS ORDERED: CLOPIDOGREL 75 MG TAB PO STA (14:00)
[2022-04-22 14:14] LABS: ALT 15 U/L (4-34); AST 17 U/L (14-36); African American GFR (CKD) >90 (>60 ml/min/1.73 sqM); Albumin 3.5 g/dL (3.5-5.0); Alkaline Phosphatase 112 U/L (38-126); Anion Gap 7 mmol/L; Blood Urea Nitrogen 8 mg/dL (7-17); Calcium 8.6 mg/dL (8.4-10.2); Carbon Dioxide 29 mmol/L (22-30); Chloride 94 mmol/L (98-107); Glucose 492 mg/dL (74-99); Non-African American GFR(CKD) >90 (>60 ml/min/1.73 sqM); Potassium 4.4 mmol/L (3.5-5.1); Sodium 130 mmol/L (137-145); Total Bilirubin 0.5 mg/dL (0.2-1.3); Total Protein 6.2 g/dL (6.3-8.2)
[2022-04-22] MEDS ORDERED: CYCLOBENZAPRINE 10 MG TAB PO PRN (14:16)
[2022-04-22] MEDS ORDERED: GABAPENTIN 300 MG CAP PO PRN (14:16)
[2022-04-22] MEDS ORDERED: DEXTROSE 50% SYRINGE 50 ML IVP PRN ×2 (14:19)
[2022-04-22] MEDS ORDERED: SODIUM CHLORIDE 0.9% 500 ML 500 ML IV STA (14:41)
[2022-04-22 15:40] LABS: Glucose,Whole Blood 389 mg/dL (70-110)
[2022-04-22 17:09] LABS: Appearance,Urine Clear (Clear); Bilirubin,Urine Negative (Negative); Blood,Urine Negative (Negative); Color,Urine Light Yellow; Glucose,Urine (UA) 4+ (Negative); Ketones,Urine Negative (Negative); Leukocyte Esterase,Urine Moderate (Negative); Mucus,Urine Rare /hpf; Nitrite,Urine Negative (Negative); Protein,Urine Negative (Negative); RBC,Urine 6 /hpf (0-5); Squamous Epithelial Cell,Urine 1 /hpf (0-4); Urobilinogen,Urine <2.0 mg/dL (<2.0); WBC,Urine 2 /hpf (0-5)
[2022-04-22 17:21] LABS: Amphetamine Screen,Urine Not Detected (NotDetected); Barbiturate Screen,Urine Not Detected (NotDetected); Benzodiazepines Screen,Urine Not Detected (NotDetected); Cocaine Screen,Urine Detected (NotDetected); Methadone Screen, Urine Not Detected (NotDetected); Opiate Screen,Urine Not Detected (NotDetected); Oxycodone Screen, Urine Not Detected (NotDetected); Phencyclidine Screen,Urine Not Detected (NotDetected); Tricyclic Antidepressant,Urine Not Detected (NotDetected); Urn Cannabinoid Scrn Not Detected (NotDetected)
[2022-04-22 17:37] LABS: Glucose,Whole Blood 393 mg/dL (70-110)
[2022-04-22] MEDS: INSULIN ASPART (NovoLOG) 100 UNIT/ML VIAL SQ SCH (17:40)
[2022-04-22] MEDS: HEPARIN SODIUM,PORCINE/PF 5,000 UNIT/0.5 ML SYRINGE SQ SCH (17:41)
[2022-04-22] MEDS: INSULN ASP PRT/INSULIN ASPART 100 UNIT/ML 10 ML VIAL SQ SCH (17:50)
--- NOTE | 2022-04-22 18:14 | P.HPIM ---
History of Present Illness This is a pleasant 42 years old female with past medical history of diabetes mellitus, hyperlipidemia, hypertension, anemia, pulmonary embolism, morbid obesity, anxiety and depression and nicotine dependence Patient presents because of right-sided tingling Patient states that she was under a lot of stress recently over the last few days or weeks because of her elderly son involve himself in trouble and they have to be addicted from the house and now lives with his friends, she is homeless and her youngest son lives with his sister now while over the last 2 weeks she's been having this heart should and with numbness in her right face and upper and lower extremity, this morning her numbness got more severe and she got concerned so decided to come to emergency room. Patient denies specific weakness. She denies headache or dizziness no slurred speech or blurred vision. No specific overt upper or lower extremities. No nausea vomiting. She denies chest pain or dyspnea. No dysuria or urgency. No abdominal pain. She smokes about 1 pack per day and she was counseled to quit and she agrees. No alcohol or drugs. She states she had a pulmonary embolism about 3 years ago where she was sent to [facility] and they talked the clot out as she states. She states currently she does not take any anticoagulation other than Plavix. She is also diabetic using insulin 70/30 treatment at 45 units twice a day. Vital signs stable Labs showing elevated hemoglobin 17.0. INR 0.8. Sodium 1:30 blood sugar is elevated for 92. Rest of BMP is unremarkable. Troponin is mildly elevated. Acetone is negative. Chest x-ray: Cardiomegaly with no consultation CT of brain: No acute process CTA of the head and neck, no evidence of dissection of the cervical internal carotid artery or vertebral artery or any significant stenosis. No aneurysm. CT of the brain showing no acute process but redemonstration of few left frontal and left lentiform nucleus hypodensity which could represent prior like no infarct versus demyelination. Furthermore assessment can be helpful In the emergency room she received aspirin 325 mg. Review of Systems Review of systems CONSTITUTIONAL: No fever, no malaise, no fatigue. HEENT: No recent visual problems or hearing problems. Denied any sore throat. CARDIOVASCULAR: No orthopnea, PND, no palpitations, no syncope. PULMONARY: No shortness of breath, no cough, no hemoptysis. GASTROINTESTINAL: No diarrhea, no nausea, no vomiting, no abdominal pain. Normoactive bowel sounds. NEUROLOGICAL: No headaches, no weakness, no dizziness HEMATOLOGICAL: Denies any bleeding or petechiae. GENITOURINARY: Denies any burning micturition, frequency, or urgency. MUSCULOSKELETAL/RHEUMATOLOGICAL: Denies any joint pain, swelling, or any muscle pain. ENDOCRINE: Denies any polyuria or polydipsia. Past Medical History Past Medical History: Diabetes Mellitus, Pulmonary Embolus (PE), Thyroid Disorder Additional Past Medical History / Comment(s): morbid obesity, ABD HERNIA, ''FLE SH EATING DISEASE'' ,covid 06/27 History of Any Multi-Drug Resistant Organisms: None Reported Past Surgical History: Section Additional Past Surgical History / Comment(s): 2 c-sections, surgical debridement of buttocks Past Anesthesia/Blood Transfusion Reactions: Motion Sickness Additional Past Anesthesia/Blood Transfusion Reaction / Comment(s): CLAUSTERPHOBIA Past Psychological History: Anxiety, Depression Smoking Status: Current every day smoker Past Alcohol Use History: Rare Past Drug Use History: None Reported, Marijuana - Past Family History Mother Additional Family Medical History / Comment(s): MIGRAINES, HAS WATER ON HER BRAIN Father History Unknown: Yes Additional Family Medical History / Comment(s): PTS DAD WHEN SHE WAS 14 Medications and Allergies Home Medications Medication Instructions Recorded Confirmed Type Cyclobenzaprine [Flexeril] 10 mg PO TID PRN 05/19/18 04/22/22 History Clopidogrel [Plavix] 75 mg PO DAILY 05/18/19 04/22/22 History Ferrous Sulfate [Iron (65 MG 325 mg PO DAILY 05/18/19 04/22/22 History Elemental)] Rosuvastatin [Crestor] 10 mg PO HS 11/04/20 04/22/22 History atenoloL 25 mg PO DAILY 11/04/20 04/22/22 History Insulin Aspart Prot/Insuln Asp 45 - 48 unit SQ AC-BID 07/23/21 04/22/22 History [NovoLOG MIX 70-30 Flexpen] Levothyroxine Sodium [Synthroid] 150 mcg PO DAILY 07/23/21 04/22/22 History Omeprazole 40 mg PO DAILY 07/23/21 04/22/22 History Citalopram Hydrobromide [CeleXA] 20 mg PO DAILY 04/22/22 04/22/22 History Gabapentin 600 mg PO HS PRN MDD 900mg 04/22/22 04/22/22 History Gabapentin [Neurontin] 300 mg PO BID PRN MDD 900 mg 04/22/22 04/22/22 History lisinopriL [Zestril] 20 mg PO DAILY 04/22/22 04/22/22 History metFORMIN HCL 1,000 mg PO BID 04/22/22 04/22/22 History Allergies Allergy/AdvReac Type Severity Reaction Status Date / Time adhesive AdvReac Unknown Verified 04/22/22 13:34 Physical Exam Vitals: Vital Signs Temp Pulse Resp BP Pulse Ox 04/22/22 11:44 97.6 F 61 18 145/75 98 Intake and Output 04/22/22 04/22/22 04/22/22 06:59 14:59 22:59 Other: Weight 155.582 kg -GENERAL: The patient is alert and oriented x3, not in any acute distress. Well obese HEENT: Pupils are round and equally reacting to light. EOMI. No scleral icterus. No conjunctival pallor. Normocephalic, atraumatic. No pharyngeal erythema. No thyromegaly. CARDIOVASCULAR: S1 and S2 present. No murmurs, rubs, or gallops. PULMONARY: Chest is clear to auscultation, no wheezing or crackles. ABDOMEN: Soft, nontender, nondistended, normoactive bowel sounds. No palpable organomegaly. MUSCULOSKELETAL: No joint swelling or deformity. EXTREMITIES: No cyanosis, clubbing, or pedal edema. -NEUROLOGICAL: Gross neurological examination did not reveal any focal deficits. Cranial nerves are grossly intact. Strength 5/5 in all extremities. No meningeal signs SKIN: No rashes. no petechiae. Results CBC & Chem 7: 04/22/22 12:35 04/22/22 13:30 Labs: Abnormal Lab Results - Last 24 Hours (Table) 04/22/22 04/22/22 04/22/22 Range/Units 12:22 12:35 12:35 Hgb 17.0 H (11.4-16.0) gm/dL Hct 50.5 H (34.0-46.0) % APTT 21.9 L (22.0-30.0) sec Sodium (137-145) mmol/L Chloride (98-107) mmol/L Glucose (74-99) mg/dL POC Glucose (mg/dL) 571 H (70-110) mg/dL Troponin I (0.000-0.034) ng/mL Total Protein (6.3-8.2) g/dL 04/22/22 04/22/22 Range/Units 13:30 13:30 Hgb (11.4-16.0) gm/dL Hct (34.0-46.0) % APTT (22.0-30.0) sec Sodium 130 L (137-145) mmol/L Chloride 94 L (98-107) mmol/L Glucose 492 H (74-99) mg/dL POC Glucose (mg/dL) (70-110) mg/dL Troponin I 0.039 H* (0.000-0.034) ng/mL Total Protein 6.2 L (6.3-8.2) g/dL Assessment and Plan Assessment: Right-sided numbness, rule out stroke Nicotine dependence Type 2 diabetes mellitus Hypertension Hyperlipidemia History of pulmonary embolism not on anticoagulation Morbid obesity. BMI 57.1 History of anxiety and depression Plan: Continue with aspirin Neuro check neurology consult Check hemoglobin A1c Patient had recent echocardiogram this year therefore we going to repeated But we'll ask security risk analyst to evaluate her of the risk of cardiac disease is low but given her young age and multiple risk factors Labs and medication were reviewed.. Continue same treatment. Continue with symptomatic treatment. Resume home medication. Monitor labs and vitals. DVT and GI prophylaxis. Further recommendations as per clinical course of the anika ent DVT prophylaxis: Subcutaneous heparin GI Prophylaxis: Ppi PT/OT: Pending Prognosis is guarded
[2022-04-22 20:31] LABS: Glucose,Whole Blood 398 mg/dL (70-110)
[2022-04-22] MEDS ORDERED: ATORVASTATIN 20 MG TAB PO SCH (21:00)
[2022-04-22] MEDS: GABAPENTIN 300 MG CAP PO PRN (21:03)
[2022-04-22] MEDS: metFORMIN 500 MG TAB PO SCH (21:03)
[2022-04-23] MEDS: HEPARIN SODIUM,PORCINE/PF 5,000 UNIT/0.5 ML SYRINGE SQ SCH ×4 (00:29→23:29)
[2022-04-23 06:07] LABS: Glucose,Whole Blood 368 mg/dL (70-110)
[2022-04-23] MEDS: INSULN ASP PRT/INSULIN ASPART 100 UNIT/ML 10 ML VIAL SQ SCH ×2 (07:00→17:16)
[2022-04-23] MEDS: INSULIN ASPART (NovoLOG) 100 UNIT/ML VIAL SQ SCH ×3 (07:01→17:17)
[2022-04-23] MEDS: PANTOPRAZOLE 40 MG TABLET PO SCH (07:03)
[2022-04-23] MEDS: LEVOTHYROXINE 75 MCG TAB PO SCH (07:03)
[2022-04-23 08:57] LABS: Basophils % (A) 0 %; Eosinophils # (A) 0.2 k/uL (0-0.7); Eosinophils % (A) 2 %; HCT 43.5 % (34.0-46.0); HGB 14.6 gm/dL (11.4-16.0); Lymphocytes # (A) 2.1 k/uL (1.0-4.8); Lymphocytes % (A) 24 %; MCH 32.2 pg (25.0-35.0); MCHC 33.6 g/dL (31.0-37.0); MCV 96.1 fL (80.0-100.0); Mean Platelet Volume 8.2; Monocytes # (A) 0.4 k/uL (0-1.0); Monocytes % (A) 5 %; Neutrophils # (A) 5.9 k/uL (1.3-7.7); Neutrophils % (A) 68 %; Platelet Count 256 k/uL (150-450); RBC 4.53 m/uL (3.80-5.40); RDW 12.2 % (11.5-15.5); WBC 8.7 k/uL (3.8-10.6)
[2022-04-23] MEDS ORDERED: CITALOPRAM HYDROBROMIDE 20 MG TAB PO SCH (09:00)
[2022-04-23 09:21] LABS: African American GFR (CKD) 81 (>60 ml/min/1.73 sqM); Anion Gap 5 mmol/L; Blood Urea Nitrogen 12 mg/dL (7-17); Calcium 8.4 mg/dL (8.4-10.2); Carbon Dioxide 27 mmol/L (22-30); Chloride 100 mmol/L (98-107); Glucose 352 mg/dL (74-99); Non-African American GFR(CKD) 71 (>60 ml/min/1.73 sqM); Potassium 4.6 mmol/L (3.5-5.1); Sodium 132 mmol/L (137-145)
[2022-04-23] MEDS ORDERED: DOBUTamine DRIP for NUC MED 500 MG in DEXTROSE/WATER 1 250ML.BAG IV PRN (09:22)
[2022-04-23] MEDS: atenoloL 25 MG TAB PO SCH (09:24)
[2022-04-23] MEDS: CLOPIDOGREL 75 MG TAB PO SCH (10:12)
[2022-04-23] MEDS: metFORMIN 500 MG TAB PO SCH ×2 (10:13→17:27)
[2022-04-23] MEDS: lisinopriL 20 MG TAB PO SCH (10:13)
--- NOTE | 2022-04-23 10:44 | P.CRDCN ---
History of Present Illness History of present illness: HISTORY OF PRESENT ILLNESS: This is a 42 year old female with a past medical history significant for hypertension, hyperlipidemia, diabetes, PE, anxiety, depression, and nicotine dependence. 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 We have been asked to see the patient in consultation for abnormal troponins. Patient examined at the bedside. Patient presented to the hospital with a 2 week history of intermittent right sided facial numbness and right upper arm numbness. Patient denies having any chest pain or pressure. Denies SOB. She denies a history of CAD. She denies any previous stress testing. * EKG reveals sinus mechanism with right BBB and PVCS. no signs of acute ischemia. * Chest xray cardiomegaly * Laboratory data: WBC 8.7. Hemoglobin 14.6. Platelet count 256. Sodium 132. Potassium 4.6. BUN 12. Creatinine 1.0. Troponin 0.039. 0.043. 0.037. * Current home cardiac medications include Plavix 75 mg daily, lisinopril 20 mg daily, Crestor 10 mg at night, atenolol 25 mg daily * Most recent echocardiogram obtained in July 2021 revealed ejection fraction 50-55%, mild tricuspid regurgitation. * Cardiac catheterization history: Patient denies REVIEW OF SYSTEMS: At the time of my exam: CONSTITUTIONAL: Denies fever or chills. HEENT: Denies blurred vision, vision changes, or eye pain. Denies hemoptysis CARDIOVASCULAR: Denies chest pain. Denies orthopnea. Denies PND. Denies palpitations RESPIRATORY: Denies shortness of breath. GASTROINTESTINAL: Denies abdominal pain. Denies nausea or vomiting. HEMATOLOGIC: Denies bleeding disorders. GENITOURINARY: Denies any blood in urine. SKIN: Denies pruitis. Denies rash. PHYSICAL EXAM: VITAL SIGNS: Reviewed. GENERAL: Well-developed in no acute distress. HEENT: Head is normocephalic. Pupils are equal, round. Sclerae anicteric. Mucous membranes of the mouth are moist. Neck supple. No JVD or thyromegaly LUNGS: Respirations even and unlabored. Lungs essentially clear to auscultation bilaterally. HEART: Regular rate and rhythm. S1 and S2 heard. ABDOMEN: Soft. Nondistended. Nontender. EXTREMITIES: Normal range of motion. No clubbing or cyanosis. Peripheral pulses intact. No lower extremity edema NEUROLOGIC: Awake and alert. Oriented x 3. ASSESSMENT: Right sided facial numbness and right upper extremity numbness Abnormal troponins, flat, not suggestive of acute coronary syndrome Hypertension Hyperlipidemia Diabetes, uncontrolled Medication noncompliance Cocaine use, toxicology screen positive for cocaine PLAN: Obtain 2-D echo to assess cardiac structure and function Resume home cardiac medications Patient to undergo dobutamine stress test today Further recommendations pending patient course Nurse practitioner note has been reviewed by physician. Signing provider agrees with the documented findings, assessment, and plan of care. Past Medical History Past Medical History: Diabetes Mellitus, Pulmonary Embolus (PE), Thyroid Disorder Additional Past Medical History / Comment(s): morbid obesity, ABD HERNIA, ''FLESH EATING DISEASE'' ,covid 06/27 History of Any Multi-Drug Resistant Organisms: None Reported Past Surgical History: Section Additional Past Surgical History / Comment(s): 2 c-sections, surgical debridement of buttocks Past Anesthesia/Blood Transfusion Reactions: Motion Sickness Additional Past Anesthesia/Blood Transfusion Reaction / Comment(s): CLAUSTERPHOBIA Past Psychological History: Anxiety, Depression Smoking Status: Current every day smoker Past Alcohol Use History: Rare Past Drug Use History: None Reported, Marijuana - Past Family History Mother Additional Family Medical History / Comment(s): MIGRAINES, HAS WATER ON HER BRAIN Father History Unknown: Yes Additional Family Medical History / Comment(s): PTS DAD WHEN SHE WAS 14 Medications and Allergies Home Medications Medication Instructions Recorded Confirmed Type Cyclobenzaprine [Flexeril] 10 mg PO TID PRN 05/19/18 04/22/22 History Clopidogrel [Plavix] 75 mg PO DAILY 05/18/19 04/22/22 History Ferrous Sulfate [Iron (65 MG 325 mg PO DAILY 05/18/19 04/22/22 History Elemental)] Rosuvastatin [Crestor] 10 mg PO HS 11/04/20 04/22/22 History atenoloL 25 mg PO DAILY 11/04/20 04/22/22 History Insulin Aspart Prot/Insuln Asp 45 - 48 unit SQ AC-BID 07/23/21 04/22/22 History [NovoLOG MIX 70-30 Flexpen] Levothyroxine Sodium [Synthroid] 150 mcg PO DAILY 07/23/21 04/22/22 History Omeprazole 40 mg PO DAILY 07/23/21 04/22/22 History Citalopram Hydrobromide [CeleXA] 20 mg PO DAILY 04/22/22 04/22/22 History Gabapentin 600 mg PO HS PRN MDD 900mg 04/22/22 04/22/22 History Gabapentin [Neurontin] 300 mg PO BID PRN MDD 900 mg 04/22/22 04/22/22 History lisinopriL [Zestril] 20 mg PO DAILY 04/22/22 04/22/22 History metFORMIN HCL 1,000 mg PO BID 04/22/22 04/22/22 History Allergies Allergy/AdvReac Type Severity Reaction Status Date / Time adhesive AdvReac Unknown Verified 04/22/22 13:34 Physical Exam Vitals: Vital Signs Temp Pulse Pulse Resp BP BP BP 04/23/22 04:00 97.3 F L 67 18 107/69 04/23/22 00:00 97.3 F L 65 18 126/71 04/22/22 20:00 97.8 F 65 18 125/80 98/66 04/22/22 17:53 71 18 137/85 04/22/22 11:44 97.6 F 61 18 145/75 Pulse Ox 04/23/22 04:00 96 04/23/22 00:00 98 04/22/22 20:00 98 04/22/22 17:53 99 04/22/22 11:44 98 Intake and Output 04/22/22 04/23/22 04/23/22 22:59 06:59 14:59 Intake Total 240 780 Balance 240 780 Intake: Oral 240 780 Other: # Voids 1 Weight 155.582 kg Results 04/23/22 08:42 04/23/22 08:42 Cardiac Enzymes 04/22/22 04/22/22 04/22/22 Range/Units 13:30 13:30 16:14 AST 17 (14-36) U/L Troponin I 0.039 H* 0.043 H* (0.000-0.034) ng/mL 04/22/22 Range/Units 19:16 AST (14-36) U/L Troponin I 0.037 H* (0.000-0.034) ng/mL Coagulation 04/22/22 Range/Units 12:35 PT 9.5 (9.0-12.0) sec APTT 21.9 L (22.0-30.0) sec CBC 04/22/22 04/23/22 Range/Units 12:35 08:42 WBC 10.2 8.7 (3.8-10.6) k/uL RBC 5.35 4.53 (3.80-5.40) m/uL Hgb 17.0 H 14.6 (11.4-16.0) gm/dL Hct 50.5 H 43.5 (34.0-46.0) % Plt Count 300 256 (150-450) k/uL Comprehensive Metabolic Panel 04/22/22 04/23/22 Range/Units 13:30 08:42 Sodium 130 L 132 L (137-145) mmol/L Potassium 4.4 4.6 (3.5-5.1) mmol/L Chloride 94 L 100 (98-107) mmol/L Carbon Dioxide 29 27 (22-30) mmol/L BUN 8 12 (7-17) mg/dL Creatinine 0.79 1.00 (0.52-1.04) mg/dL Glucose 492 H 352 H (74-99) mg/dL Calcium 8.6 8.4 (8.4-10.2) mg/dL AST 17 (14-36) U/L ALT 15 (4-34) U/L Alkaline Phosphatase 112 (38-126) U/L Total Protein 6.2 L (6.3-8.2) g/dL Albumin 3.5 (3.5-5.0) g/dL Current Medications Generic Name Dose Route Start Last Admin Trade Name Freq PRN Reason Stop Dose Admin Aspirin 81 mg 04/23/22 09:45 Aspirin 81 Mg PO DAILY [facility] Atenolol 25 mg 04/23/22 09:00 04/23/22 09:24 Atenolol 25 Mg Tab PO Not Given DAILY ADDISON Atorvastatin Calcium 20 mg 04/22/22 21:00 04/22/22 21:03 Atorvastatin 20 Mg Tab PO 20 mg HS ADDISON Administration Citalopram Hydrobromide 20 mg 04/23/22 09:00 04/23/22 10:13 Citalopram Hydrobromide 20 Mg Tab PO 20 mg DAILY ADDISON Administration Clopidogrel Bisulfate 75 mg 04/23/22 09:00 04/23/22 10:12 Clopidogrel 75 Mg Tab PO 75 mg DAILY ADDISON Administration Cyclobenzaprine HCl 10 mg 04/22/22 14:16 Cyclobenzaprine 10 Mg Tab PO TID PRN Muscle Spasm Dextrose/Water 25 ml 04/22/22 14:19 Dextrose 50% Syringe 50 Ml IVP PER PROTOCOL PRN Hypoglycemia Protocol Dextrose/Water 50 ml 04/22/22 14:19 Dextrose 50% Syringe 50 Ml IVP PER PROTOCOL PRN Hypoglycemia Protocol Gabapentin 300 mg 04/22/22 14:16 04/22/22 21:03 Gabapentin 300 Mg Cap PO 300 mg BID PRN Administration nerve pain Gabapentin 600 mg 04/22/22 14:16 Gabapentin 300 Mg Cap PO HS PRN nerve pain Heparin Sodium (Porcine) 5,000 unit 04/22/22 16:00 04/23/22 10:12 Heparin Sodium,Porcine/Pf 5,000 Unit/0.5 Ml Syringe SQ 5,000 unit Q8HR ADDISON Administration Dobutamine HCl/Dextrose 500 mg 250 mls @ 46.675 mls/hr 04/23/22 09:22 / IV Solution IV 04/23/22 13:23 .Q5H22M PRN Per Protocol Protocol 10 MCG/KG/MIN Insulin Aspart 45 unit 04/22/22 17:30 04/23/22 07:00 Insuln Asp Prt/Insulin Aspart 100 Unit/Ml 10 Ml Vial SQ 45 unit AC-BID ADDISON Administration Insulin Aspart 0 unit 04/22/22 17:30 04/23/22 07:01 Insulin Aspart (Novolog) 100 Unit/Ml Vial SQ 10 unit AC-TID ADDISON Administration Protocol Levothyroxine Sodium 150 mcg 04/23/22 06:30 04/23/22 07:03 Levothyroxine 75 Mcg Tab PO 150 mcg DAILY@0630 ADDISON Administration Lisinopril 20 mg 04/23/22 09:00 04/23/22 10:13 Lisinopril 20 Mg Tab PO 20 mg DAILY ADDISON Administration Metformin HCl 1,000 mg 04/22/22 21:00 04/23/22 10:13 Metformin 500 Mg Tab PO 1,000 mg BID ADDISON Administration Pantoprazole Sodium 40 mg 04/23/22 07:30 04/23/22 07:03 Pantoprazole 40 Mg Tablet PO 40 mg [id number] ADDISON Administration Intake and Output 04/22/22 04/23/22 04/23/22 22:59 06:59 14:59 Intake Total 240 780 Balance 240 780 Intake: Oral 240 780 Other: # Voids 1 Weight 155.582 kg 04/23/22 08:42 04/23/22 08:42
--- NOTE | 2022-04-23 11:18 | P.CNNES ---
History of Present Illness Consult date: 04/23/22 Requesting physician: Neftali Muller Reason for Consult: neuro deficits, concerns for CVA. Stroke pager not tpa History of Present Illness: This is syncope, history of pulmonary embolism 2018, diabetes mellitus, hypert ension, hyperlipidemia, tobacco use presented emergency department on 04/22/2022 after having intermittent episode of right arm, lip and leg numbness for the past 2 weeks but has worsened yesterday and was more prolonged. She states that the she has decreased sensation over though over the entire right side of the face and decreased sensation over right upper extremity as well as right lower extremity. Also noticed some difficulty walk-in and some clumsiness of the hand. Patient is on Plavix 75mg daily, Crestor 10mg qhs. Patient stated she is non-compliant taking her medications. She notified me that she took cocaine once since under stress then later stated rare in the past two weeks. I spoke with primary and she denied using illicit drug use. She continues to smoke. She stated she is following-up with Dr. Roland and had imaging of her brain such as MRI but does not know the results and happened months back. As a result stroke pager was activated by the ED and her NIH stroke scale was a 3. Per the ED the patient had dysdiadochokinesia over the right hand which was somewhat improved and she has clumsiness of heel to chin of the right foot which there is a concern for stroke. Her blood sugar was over 500. Patient had CT of the head and a CT angiography of the head and neck which were unremarkable. No IV TPA upon the request of the stroke attending (Dr. Shahid) since the patient's symptoms has been going on for 2 weeks as well as low NIH and the risk outweighed the benefits. Of note I personally saw the patient in our facility on 07-23-2021 for new onset syncope of unknown etiology at. I felt was more cardiac special with multiple cardiac risk factor and the I felt last likely seizure but could not exclude any central cause. She had a routine EEG which was normal. She had a carotid duplex which did not show any significant carotid stenosis. I ordered and ambulated 2-1/2 and hour EEG as an outpatient and the was done on 07/30/2021 and it's reported as normal. No seizures were recorded. No discharges. Please refer to my note further details. Some of the workup during his hospital visit consisted of: Initial white blood cell is within normal limits is 10.2K. Initial serum glucose is 571. AST and ALT is within normal limits. Calcium is within normal limits. Sodium is 1:30. Initial troponin is 0.039 Possible urinary tract infection on U/A. urine Hcg is not detected. Urine drug screen is positive for cocaine. Rest is noninfected and acetone is negative. CT of the head is reported as no acute intracranial processes. No significant change from prior examination. Redemonstration of few left frontal and left lentiform nuclei hypodensities which could represent prior lacunar infarct versus demyelination. Further MRI assessment can be considered. CTA head and neck: No evidence of dissection of the cervical internal carotid arteries or vertebral arteries or any evidence of significant stenosis at the carotid bifurcation. No evidence of high-grade stenosis or intracranial aneurysm. Review of Systems Review of system: The 12 point system was reviewed and apparent positive and negative per HPI. Past Medical History Past Medical History: Diabetes Mellitus, Pulmonary Embolus (PE), Thyroid Disorder Additional Past Medical History / Comment(s): morbid obesity, ABD HERNIA, ''FLESH EATING DISEASE'' ,covid 06/27 History of Any Multi-Drug Resistant Organisms: None Reported Past Surgical History: Section Additional Past Surgical History / Comment(s): 2 c-sections, surgical debridement of buttocks Past Anesthesia/Blood Transfusion Reactions: Motion Sickness Additional Past Anesthesia/Blood Transfusion Reaction / Comment(s): CLAUSTERPHOBIA Past Psychological History: Anxiety, Depression Smoking Status: Current every day smoker Past Alcohol Use History: Rare Past Drug Use History: None Reported, Marijuana - Past Family History Mother Additional Family Medical History / Comment(s): MIGRAINES, HAS WATER ON HER BRAIN Father History Unknown: Yes Additional Family Medical History / Comment(s): PTS DAD WHEN SHE WAS 14 Medications and Allergies Home Medications Medication Instructions Recorded Confirmed Type Cyclobenzaprine [Flexeril] 10 mg PO TID PRN 05/19/18 04/22/22 History Clopidogrel [Plavix] 75 mg PO DAILY 05/18/19 04/22/22 History Ferrous Sulfate [Iron (65 MG 325 mg PO DAILY 05/18/19 04/22/22 History Elemental)] Rosuvastatin [Crestor] 10 mg PO HS 11/04/20 04/22/22 History atenoloL 25 mg PO DAILY 11/04/20 04/22/22 History Insulin Aspart Prot/Insuln Asp 45 - 48 unit SQ AC-BID 07/23/21 04/22/22 History [NovoLOG MIX 70-30 Flexpen] Levothyroxine Sodium [Synthroid] 150 mcg PO DAILY 07/23/21 04/22/22 History Omeprazole 40 mg PO DAILY 07/23/21 04/22/22 History Citalopram Hydrobromide [CeleXA] 20 mg PO DAILY 04/22/22 04/22/22 History Gabapentin 600 mg PO HS PRN MDD 900mg 04/22/22 04/22/22 History Gabapentin [Neurontin] 300 mg PO BID PRN MDD 900 mg 04/22/22 04/22/22 History lisinopriL [Zestril] 20 mg PO DAILY 04/22/22 04/22/22 History metFORMIN HCL 1,000 mg PO BID 04/22/22 04/22/22 History Allergies Allergy/AdvReac Type Severity Reaction Status Date / Time adhesive AdvReac Unknown Verified 04/22/22 13:34 Physical Examination - Vital Signs Vital Signs: Vital Signs Temp Pulse Pulse Resp BP BP BP 04/23/22 04:00 97.3 F L 67 18 107/69 04/23/22 00:00 97.3 F L 65 18 126/71 04/22/22 20:00 97.8 F 65 18 125/80 98/66 04/22/22 17:53 71 18 137/85 04/22/22 11:44 97.6 F 61 18 145/75 Pulse Ox 04/23/22 04:00 96 04/23/22 00:00 98 04/22/22 20:00 98 04/22/22 17:53 99 04/22/22 11:44 98 Intake and Output 04/22/22 04/23/22 04/23/22 22:59 06:59 14:59 Intake Total 240 780 Balance 240 780 Intake: Oral 240 780 Other: # Voids 1 Weight 155.582 kg GENERAL: The patient is lying in bed and is not in acute distress. CHEST: The heart rate is regular rate rhythm. No murmurs to auscultation. No carotid bruit bilaterally. LUNG: Clear to auscultation bilaterally no wheezing noted throughout. Not labored breathing. ABDOMEN/GI: Bowel sounds present in all 4 quadrants. No tenderness to palpation throughout. NEUROLOGICAL: Higher mental function: The patient is awake, alert, oriented to self, place and time. Patient is following commands. No aphasia and no neglect. Cranial nerves: The pupils are round, equal and reactive to light and accommodation. Visual purvis are full to confrontation throughout. Extraocular movement is intact no nystagmus is noted. Facial sensation is decreased to touch entire right side according to patient. The facial strength is normal throughout. Hearing is normal bilaterally to hand rub. Tongue is midline and moved [id number] without any difficulty. No dysarthria is noted. Shoulder shrug is normal bilaterally. Motor: The strength is has effort related on the right side but with motivation is 5/5 throughout. Normal tone and bulk. Cerebellum: Normal finger to nose bilaterally. Sensation: Sensation is decreased to touch on the right side. Reflexes (right/left): 2+ throughout Plantars are downgoing bilaterally. Results - Laboratory Findings CBC and BMP: 04/23/22 08:42 04/23/22 08:42 Abnormal Lab Findings: Abnormal Labs 04/22/22 04/22/22 04/22/22 12:22 12:35 12:35 Hgb 17.0 H Hct 50.5 H APTT 21.9 L Sodium Chloride Glucose POC Glucose (mg/dL) 571 H Hemoglobin A1c Troponin I Total Protein Ur Specific Homer Urine Glucose (UA) Ur Leukocyte Esterase Urine RBC Urine Mucus Urine Cocaine Screen 04/22/22 04/22/22 04/22/22 13:30 13:30 15:38 Hgb Hct APTT Sodium 130 L Chloride 94 L Glucose 492 H POC Glucose (mg/dL) 389 H Hemoglobin A1c Troponin I 0.039 H* Total Protein 6.2 L Ur Specific Homer Urine Glucose (UA) Ur Leukocyte Esterase Urine RBC Urine Mucus Urine Cocaine Screen 04/22/22 04/22/22 04/22/22 16:14 16:14 17:00 Hgb Hct APTT Sodium Chloride Glucose POC Glucose (mg/dL) Hemoglobin A1c 13.7 H Troponin I 0.043 H* Total Protein Ur Specific Homer 1.050 H Urine Glucose (UA) 4+ H Ur Leukocyte Esterase Moderate H Urine RBC 6 H Urine Mucus Rare H Urine Cocaine Screen Detected H 04/22/22 04/22/22 04/22/22 17:35 19:16 20:29 Hgb Hct APTT Sodium Chloride Glucose POC Glucose (mg/dL) 393 H 398 H Hemoglobin A1c Troponin I 0.037 H* Total Protein Ur Specific Homer Urine Glucose (UA) Ur Leukocyte Esterase Urine RBC Urine Mucus Urine Cocaine Screen 04/23/22 06:06 Hgb Hct APTT Sodium Chloride Glucose POC Glucose (mg/dL) 368 H Hemoglobin A1c Troponin I Total Protein Ur Specific Homer Urine Glucose (UA) Ur Leukocyte Esterase Urine RBC Urine Mucus Urine Cocaine Screen Assessment and Plan Assessment: Numbenss over the right side and face for the past two weeks that is inte rmittent with some weakness of the right. On examination has effort related strength on the right side and with motivation no focal weakness but states has numbness. Rule out stroke especially cocaine use that can cause vasocontriction and spams. Also multiple risk factors (uncontrolled DM, tobacco use and non- compliance taking medication) which can cause lacunar stroke. Positive cocaine Nonketotic diabetes on presentation presented with sugar in 500's History of pulmonary embolism Episode of syncope on 07/2021 and she had a 2-1/2 hour EEG on 2021 which was normal (no seizure or discharges). Type 2 diabetes mellitus and appears not controlled Tobacco use Medication non-compliance Morbid obesity Plan: CT of the head is reported as no acute intracranial processes. No significant change from prior examination. Redemonstration of few left frontal and left lentiform nuclei hypodensities which could represent prior lacunar infarct versus demyelination. I ordered MRI of the brain w/ and w/o to rule out stroke. If negative for stroke recommend Multiple sclerosis work-up as outpatient (MRI Cervical and thoracic and lumbar puncture). In addition to her home Plavix patient was given aspirin 325 once and I started the patient on aspirin 81 mg daily. Continue Lipitor 20 mg daily at bedtime for secondary stroke prophylaxis. Lipid panel is ordered as well as 2-D echo and are pending PT OT and RESEARCHER are consulted next on continue neuro checks On cardiac monitoring Cardiology team is consulted Patient was counseled on the tobacco cessation as well as better management of her sugars at home. Patient was counseled on cessation of cocaine or any other illicit drug use. We'll defer the rest of the medical management to the primary team For DVT prophylaxis the patient is on subcu heparin 5000 every 8 hours Upon discharge recommend the patient to follow up with her neurologist (Dr. Roland's team) as an outpatient within 1-2 weeks The plan is discussed with patient and primary team. Thank you for the consultation Time with Patient: Greater than 30
--- NOTE | 2022-04-23 12:25 | CA ---
Dobutamine Stress Echocardiogram Report Kirsten De Anda Age: 42 Gender: F : 1980 Exam Date: 04/23/2022 10:28 Exam Location: [facility] Ordering Physician: Betina Roche Referring Physician: Kaley ART Biophysics Teacher: ROSALINDA Technologist: Ht (in): 65 Wt (lb): 343 Procedure CPT: Indication: abnormal trops ICD-9 Codes: Rhythm: Patient History: Abnormal Trops Cardiac Medications: Medications in past 24 hours: Contrast: Lumason Total Dose (mL): Stress Results Protocol: Dobutamine Peak Dose (???g/kg/min): 40 Duration (min:sec): Atropine:(mg) 1.0 Target HR: 152 Double Product: [id number] Resting HR: 70 Resting BP: 134 / 96 Peak HR: 146 Peak BP: 181 / 88 Max Predicted HR: 179 82 % Max Predicted HR Stress Summary: BP Response: Reason for Termination: Cardiac Symptoms: none ECG Analysis Resting EKG: Normal sinus rhythm, Right bundle branch block Stress EKG: Exaggeration of the baseline ST abnormality Arrhythmia: Occasional PVCs Echo Analysis Base Echo Analysis: Normal resting echocardiogram. Low Echo Anaylsis: No wall motion changes with stress. Peak Echo Analysis: No segmental wall motion abnormality Recovery Echo: No segmental wall motion abnormality MEASUREMENTS (Male/Female) Normal Values CONCLUSIONS 1. Nondiagnostic electrocardiographic dobutamine response secondary to baseline EKG abnormality 2. Occasional PVCs 3. Normal stress echocardiogram with no evidence of stress induced ischemia. Dr. Karla Thorne MD (Electronically Signed) Final Date: 23 April 2022 12:24
--- NOTE | 2022-04-23 12:30 | CA ---
Transthoracic Echo Report Name: Kirsten De Anda Age: 42 Gender: F : 1980 Exam Date: 04/23/2022 11:26 Exam Location: [facility] Ht (in): 65 Wt (lb): 343 Ordering Physician: Betina Roche Attending/Referring Phys: [id number], Kaley Transmission Superintendent Umm Vernon RDCS Procedure CPT: Indications: LV function Cardiac Hx: Technical Quality: Technically difficult study Contrast 1: Lumason Total Dose (mL): 4 Contrast 2: Total Dose (mL): MEASUREMENTS (Male / Female) Normal Values 2D ECHO LV Diastolic Diameter PLAX 4.4 cm 4.2 - 5.9 / 3.9 - 5.3 cm LV Systolic Diameter PLAX 3.0 cm IVS Diastolic Thickness 1.8 cm 0.6 - 1.0 / 0.6 - 0.9 cm LVPW Diastolic Thickness 1.8 cm 0.6 - 1.0 / 0.6 - 0.9 cm LV Relative Wall Thickness 0.8 RV Internal Dim ED PLAX 2.8 cm M-MODE Aortic Root Diameter MM 3.4 cm LA Systolic Diameter MM 3.8 cm LA Ao Ratio MM 1.1 AV Cusp Separation MM 2.2 cm DOPPLER AV Peak Velocity 128.9 cm/s AV Peak Gradient 6.6 mmHg LVOT Peak Velocity 68.3 cm/s LVOT Peak Gradient 1.9 mmHg MV Area PHT 3.1 cm??? Mitral E Point Velocity 60.3 cm/s Mitral A Point Velocity 84.4 cm/s Mitral E to A Ratio 0.7 MV Deceleration Time 242.6 ms TR Peak Velocity 172.2 cm/s TR Peak Gradient 11.9 mmHg Right Ventricular Systolic Press 15.9 mmHg FINDINGS Left Ventricle Severely increased left ventricular wall thickness. Normal left ventricular systolic function with no obvious regional wall motion abnormalities. Left ventricular ejection fraction is estimated at 55-60 %. Right Ventricle Right ventricle not well visualized. Right Atrium Right atrium not well visualized. Left Atrium Normal left atrial size. Mitral Valve Structurally normal mitral valve. No mitral stenosis. No mitral regurgitation. Aortic Valve Aortic valve not well visualized. No aortic valve stenosis or regurgitation. Tricuspid Valve Structurally normal tricuspid valve. Mild tricuspid regurgitation. Pulmonic Valve Pulmonic valve not well visualized. Pericardium No pericardial effusion. Aorta Normal size aortic root and proximal ascending aorta. CONCLUSIONS Lumason ECHO contrast used for improved visualization of the endocardial borders (inadequate visualization of two or more contiguous segments). Technically difficult study. Normal left ventricle size and systolic function Inability to evaluate valvular structures Previewed by: Dr. Karla Thorne MD (Electronically Signed) Final Date: 23 April 2022 12:29
[2022-04-23 12:54] LABS: Glucose,Whole Blood 247 mg/dL (70-110)
[2022-04-23] MEDS: ASPIRIN 81 MG PO SCH (13:03)
--- NOTE | 2022-04-23 14:12 | MR ---
EXAMINATION TYPE: MR brain wo/w con DATE OF EXAM: 04/23/2022 12:42 PM CLINICAL INDICATION:Female, 42 years old with history of numbness and weakness right side; COMPARISON: CT brain and angiography 04/22/2022. TECHNIQUE: Multi planar, multi sequence imaging was performed through the brain including: T1, T2, In version recovery, susceptibility weighted imaging and gradient echo imaging and Diffusion weighted im aging. The patient was then given intravenous contrast and multi planar, T1 fat-saturation images wer e obtained. IV Contrast: 15 cc Gadavist FINDINGS: Restricted diffusion is seen within the left thalamus. Remote injuries of the left sparrow radiata. Th e ventricular system, basal cisterns appear unremarkable. No additional evidence of restricted diffus ion to suggest acute/subacute infarct. Intracranial arterial flow voids are maintained. Midline struc tures show no abnormality. Scattered foci of high T2 signal intensity are seen within the periventric ular white matter. The susceptibility weighted images do not reveal any evidence for micro-hemorrhage . After administration of gadolinium, no abnormal enhancement is seen. The bone marrow signal is within normal limits. The paranasal sinuses and globes are unremarkable. IMPRESSION: 1. Left thalamus acute/subacute CVA. 2. Left sparrow radiata remote injuries along with Nonspecific white matter changes, likely related to small vessel ischemic disease
[2022-04-23 14:36] VITALS: BMI 57.0
[2022-04-23] MEDS ORDERED: MELATONIN 3 MG TABLET PO PRN (14:42)
[2022-04-23] MEDS ORDERED: CITALOPRAM HYDROBROMIDE 10 MG TAB PO ONE (14:45)
--- NOTE | 2022-04-23 14:49 | P.CN ---
Psychiatric Consult - . Consult date: 04/23/22 Consult:: 04/23/22 13:06 IDENTIFYING DATA: This patient is a 42-year-old female, currently homeless came in with complaints of neurological symptoms. REASON FOR REFERRAL: Psychiatry was consulted for depression and anxiety HISTORY OF PRESENT ILLNESS: The patient presented to the hospital through the ER on 04/22 with complaints of neurological symptoms and changes. Patient had clean in the ER that this is going on for the past 2 weeks on and off. She had been mentioning that she has been having right-sided numbness. Patient was admitted medically and neurology is following. Patient had computed tomography scan and CTA along with MRI completed. Patient's troponin was 0.037 was elevated. Patient has been apparent to following up with a neurologist in outpatient. Patient was seen today laying in bed and finishing up her lunch. She was agreeable to speak to her. She is fairly calm and cooperative. She spoke about being concerned about her neurological symptoms and states that she was fairly upset at the neurologist for attributing it to her cocaine use. She states that "I've only been using it little bit" and claims that it is an occasional use. She states that she does have history of chronic depression and anxiety and has been taking her Cymbalta. She was worried that she is not receiving in the hospital. She claims that she has several stressors going on including financially due to not having a job and also relying on Social Security. She also states that her 2 kids father is "absent" and not helping her. She states that her one son has "cognitive impairment". She also claims that she was evicted about 2 weeks ago due to her son and has been staying between her mother and also her sister. She states that her sleep and appetite are fair . At this time patient denies any suicidal or homical ideations, intent or plan. Patient denies any auditory, visual hallucinations and denies any paranoia or delusions. Patients admits to using cigarettes daily, no alcohol, marijuana occasionally and cocaine occasionally. PAST PSYCHIATRIC HISTORY: Patient has a a history of depression and anxiety. Patient is currently on Celexa 20 mg daily for mood/anxiety. Patient denies any previous psychiatric hospitalizations. Patient denies any psychiatric outpatient follow-up currently however states that she is to follow-up at [facility] and had a therapist there as well about 2 years ago. Patient denies any history of suicide attempts in the past. Past Medical History: Diabetes Mellitus, Pulmonary Embolus (PE), Thyroid Disorder Additional Past Medical History / Comment(s): morbid obesity, ABD HERNIA, ''FLESH EATING DISEASE'' ,covid 06/27 ALLERGIES: as per EMR. CHEMICAL DEPENDENCY HISTORY: as per HPI. FAMILY PSYCHIATRIC/SUBSTANCE USE HISTORY: denies SOCIAL HISTORY: Patient was born and raised in [place]. She also claims that she grew up in [place]. She claims that she completed high school and did some college. She states that she is currently unemployed, collecting SSI. She is unmarried, currently homeless and staying between her sister and also her mother. She has 2 kids. Denies any legal history. MENTAL STATUS EXAM: General Appearance: Patient appears to be obese, stated age is alert, directable, and cooperative. Mildly argumentative at times, Patient appears to have fair hygiene and grooming wearing hospital gown with fair eye contact. Behavior: Patient is calmly lying in bed without any agitated behavior. Speech: Patient's speech is fluent and nonpressured. Mood/Affect: Patient reports their mood is "depressed", affect is congruent Suicidality/Homicidality: Patient denies having any suicidal or homicidal ideation intent or plan. Perceptions: Patient denies any visual hallucinations and denies any auditory hallucinations Though content/process: There is no evidence of any delusional thought content and thought process is linear and goal-directed. Rambles at times. Memory and concentration: AOX3, grossly intact for the purposes of this session. Can spell "WORLD" backwards Judgment and insight: Fair IMPRESSIONS: Major depressive disorder, mild Cannabis use disorder mild Cocaine abuse Nicotine dependence PLAN: -At this time patient DOES NOT meet criteria for inpatient psychiatric admission. -Would recommend the following medication changes/additions: Increase Celexa to 30 mg daily for mood/anxiety, added melatonin 6 mg daily at bedtime when necessary for insomnia. -farmworker animal to provide patient with outpatient mental health/psychiatry resources for appropriate follow up upon discharge. Patient previously was following up at [facility] and can continue doing so as an outpatient. -Supervisor Dehydrogenation spoke with patient about substance abuse and the harmful effects on medical and mental health, patient verbally understood and agreed. -farmworker animal to provide patient substance use treatment resources including AA/NA meetings in the community. -farmworker animal to provide patient with access line number to call for inpatient substance rehab -Communicated plan to patient's nurse -Psychiatry will sign off at this time -Please contact with any questions. 04/23/22 14:42
[2022-04-23 16:34] LABS: Glucose,Whole Blood 245 mg/dL (70-110)
[2022-04-23] MEDS ORDERED: CALCIUM CARBONATE 500 MG CHEWABLE PO PRN (17:21)
[2022-04-23] MEDS ORDERED: ACETAMINOPHEN TAB 325 MG TAB PO PRN (17:29)
[2022-04-23 17:55] LABS: Chol/HDL Ratio 3.89 Ratio; LDL Cholesterol,Calculated 91.3 mg/dL (0.0-131.0)
[2022-04-23 20:05] LABS: Glucose,Whole Blood 123 mg/dL (70-110)
[2022-04-23] MEDS ORDERED: ATORVASTATIN 40 MG TAB PO SCH (21:00)
[2022-04-24 01:07] VITALS: RESP 18
--- NOTE | 2022-04-24 05:21 | P.PN ---
Subjective This is a pleasant 42 years old female with past medical history of diabetes mellitus, hyperlipidemia, hypertension, anemia, pulmonary embolism, morbid obesity, anxiety and depression and nicotine dependence Patient presents because of right-sided tingling Patient states that she was under a lot of stress recently over the last few days or weeks because of her elderly son involve himself in trouble and they have to be addicted from the house and now lives with his friends, she is homeless and her youngest son lives with his sister now while over the last 2 weeks she's been having this heart should and with numbness in her right face and upper and lower extremity, this morning her numbness got more severe and she got concerned so decided to come to emergency room. Patient denies specific weakness. She denies headache or dizziness no slurred speech or blurred vision. No specific overt upper or lower extremities. No nausea vomiting. She denies chest pain or dyspnea. No dysuria or urgency. No abdominal pain. She smokes about 1 pack per day and she was counseled to quit and she agrees. No alcohol or drugs. She states she had a pulmonary embolism about 3 years ago where she was sent to [facility] and they talked the clot out as she states. She states currently she does not take any anticoagulation other than Plavix. She is also diabetic using insulin 70/30 treatment at 45 units twice a day. Vital signs stable Labs showing elevated hemoglobin 17.0. INR 0.8. Sodium 1:30 blood sugar is elevated for 92. Rest of BMP is unremarkable. Troponin is mildly elevated. Acetone is negative. Chest x-ray: Cardiomegaly with no consultation CT of brain: No acute process CTA of the head and neck, no evidence of dissection of the cervical internal carotid artery or vertebral artery or any significant stenosis. No aneurysm. CT of the brain showing no acute process but redemonstration of few left frontal and left lentiform nucleus hypodensity which could represent prior like no infarct versus demyelination. Furthermore assessment can be helpful In the emergency room she received aspirin 325 mg. 04/23/2022 Patient with right sided numbness of the face and upper and lower extremity. Patient seen by neurologist, MRI brain showing left thalamus acute versus subacute infarct. Patient is on the Plavix and aspirin added. Neurology still on the case. Also patient had mildly elevated troponin with negative stress test and cardiology signed off Patient requested to see a psychiatrist and Anny was admitted. Patient also has positive urine drug screen for cocaine, patient was counseled to avoid drugs including cocaine, risks and benefits were explained for the patient extensively. Patient has no urinary symptoms Objective - Vital Signs Vital signs: Vital Signs Temp 97.8 F 04/23/22 08:00 Pulse 69 04/23/22 08:00 Resp 18 04/23/22 08:00 BP 136/87 04/23/22 08:00 Pulse Ox 98 04/23/22 08:00 FiO2 Intake & Output 04/22/22 04/23/22 04/23/22 18:59 06:59 18:59 Intake Total 240 780 Balance 240 780 Weight 155.582 kg Intake: Oral 240 780 Other: # Voids 1 - Exam GENERAL: The patient is alert and oriented x3, not in any acute distress. Well developed, well nourished. HEENT: Pupils are round and equally reacting to light. EOMI. No scleral icterus. No conjunctival pallor. Normocephalic, atraumatic. No pharyngeal erythema. No thyromegaly. CARDIOVASCULAR: S1 and S2 present. No murmurs, rubs, or gallops. PULMONARY: Chest is clear to auscultation, no wheezing or crackles. ABDOMEN: Soft, nontender, nondistended, normoactive bowel sounds. No palpable organomegaly. MUSCULOSKELETAL: No joint swelling or deformity. EXTREMITIES: No cyanosis, clubbing, or pedal edema. NEUROLOGICAL: Gross neurological examination did not reveal any focal deficits. SKIN: No rashes. no petechiae. - Labs CBC & Chem 7: 04/23/22 08:42 04/23/22 08:42 Labs: Abnormal Lab Results - Last 24 Hours (Table) 04/22/22 04/22/22 04/22/22 Range/Units 12:35 13:30 13:30 APTT 21.9 L (22.0-30.0) sec Sodium 130 L (137-145) mmol/L Chloride 94 L (98-107) mmol/L Glucose 492 H (74-99) mg/dL POC Glucose (mg/dL) (70-110) mg/dL Hemoglobin A1c (0.0-6.0) % Troponin I 0.039 H* (0.000-0.034) ng/mL Total Protein 6.2 L (6.3-8.2) g/dL Ur Specific [place] (1.001-1.035) Urine Glucose (UA) (Negative) Ur Leukocyte Esterase (Negative) Urine RBC (0-5) /hpf Urine Mucus (None) /hpf Urine Cocaine Screen (NotDetected) 04/22/22 04/22/22 04/22/22 Range/Units 15:38 16:14 16:14 APTT (22.0-30.0) sec Sodium (137-145) mmol/L Chloride (98-107) mmol/L Glucose (74-99) mg/dL POC Glucose (mg/dL) 389 H (70-110) mg/dL Hemoglobin A1c 13.7 H (0.0-6.0) % Troponin I 0.043 H* (0.000-0.034) ng/mL Total Protein (6.3-8.2) g/dL Ur Specific [place] (1.001-1.035) Urine Glucose (UA) (Negative) Ur Leukocyte Esterase (Negative) Urine RBC (0-5) /hpf Urine Mucus (None) /hpf Urine Cocaine Screen (NotDetected) 04/22/22 04/22/22 04/22/22 Range/Units 17:00 17:35 19:16 APTT (22.0-30.0) sec Sodium (137-145) mmol/L Chloride (98-107) mmol/L Glucose (74-99) mg/dL POC Glucose (mg/dL) 393 H (70-110) mg/dL Hemoglobin A1c (0.0-6.0) % Troponin I 0.037 H* (0.000-0.034) ng/mL Total Protein (6.3-8.2) g/dL Ur Specific [place] 1.050 H (1.001-1.035) Urine Glucose (UA) 4+ H (Negative) Ur Leukocyte Esterase Moderate H (Negative) Urine RBC 6 H (0-5) /hpf Urine Mucus Rare H (None) /hpf Urine Cocaine Screen Detected H (NotDetected) 04/22/22 04/23/22 04/23/22 Range/Units 20:29 06:06 08:42 APTT (22.0-30.0) sec Sodium 132 L (137-145) mmol/L Chloride (98-107) mmol/L Glucose 352 H (74-99) mg/dL POC Glucose (mg/dL) 398 H 368 H (70-110) mg/dL Hemoglobin A1c (0.0-6.0) % Troponin I (0.000-0.034) ng/mL Total Protein (6.3-8.2) g/dL Ur Specific [place] (1.001-1.035) Urine Glucose (UA) (Negative) Ur Leukocyte Esterase (Negative) Urine RBC (0-5) /hpf Urine Mucus (None) /hpf Urine Cocaine Screen (NotDetected) 04/23/22 Range/Units 12:53 APTT (22.0-30.0) sec Sodium (137-145) mmol/L Chloride (98-107) mmol/L Glucose (74-99) mg/dL POC Glucose (mg/dL) 247 H (70-110) mg/dL Hemoglobin A1c (0.0-6.0) % Troponin I (0.000-0.034) ng/mL Total Protein (6.3-8.2) g/dL Ur Specific [place] (1.001-1.035) Urine Glucose (UA) (Negative) Ur Leukocyte Esterase (Negative) Urine RBC (0-5) /hpf Urine Mucus (None) /hpf Urine Cocaine Screen (NotDetected) Assessment and Plan Assessment: Right-sided numbness, MRI brain showing left thalamus acute versus subacute infarct. Substance abuse with cocaine Nicotine dependence We will depression Type 2 diabetes mellitus Hypertension Hyperlipidemia History of pulmonary embolism not on anticoagulation Morbid obesity. BMI 57.1 History of anxiety and depression Plan: Continue with aspirin and Plavix Neuro check neurology consult Hold iron pills Patient counseled to avoid cocaine and other substances and smoking Continue with insulin and metformin with close monitoring of glucose Labs and medication were reviewed.. Continue same treatment. Continue with symptomatic treatment. Resume home medication. Monitor labs and vitals. DVT and GI prophylaxis. Further recommendations as per clinical course of the patient DVT prophylaxis: Subcutaneous heparin GI Prophylaxis: Ppi PT/OT: Pending Prognosis is guarded
[2022-04-24 06:00] LABS: Glucose,Whole Blood 252 mg/dL (70-110)
[2022-04-24] MEDS: INSULIN ASPART (NovoLOG) 100 UNIT/ML VIAL SQ SCH ×2 (06:55→11:41)
[2022-04-24] MEDS: LEVOTHYROXINE 75 MCG TAB PO SCH (06:55)
[2022-04-24] MEDS: PANTOPRAZOLE 40 MG TABLET PO SCH (06:55)
[2022-04-24] MEDS: INSULN ASP PRT/INSULIN ASPART 100 UNIT/ML 10 ML VIAL SQ SCH (06:56)
[2022-04-24] MEDS ORDERED: CITALOPRAM HYDROBROMIDE 10 MG TAB PO SCH (09:00)
[2022-04-24] MEDS: CLOPIDOGREL 75 MG TAB PO SCH (09:04)
[2022-04-24] MEDS: lisinopriL 20 MG TAB PO SCH (09:04)
[2022-04-24] MEDS: ASPIRIN 81 MG PO SCH (09:04)
[2022-04-24] MEDS: atenoloL 25 MG TAB PO SCH (09:04)
[2022-04-24] MEDS: HEPARIN SODIUM,PORCINE/PF 5,000 UNIT/0.5 ML SYRINGE SQ SCH (09:04)
[2022-04-24] MEDS: GABAPENTIN 300 MG CAP PO PRN (09:36)
[2022-04-24 11:26] VITALS: BP 118/73; PULSE 68; TEMP 98
[2022-04-24 11:37] LABS: Glucose,Whole Blood 153 mg/dL (70-110)
--- NOTE | 2022-04-24 12:32 | P.PN ---
Subjective Progress Note Date: 04/24/22 The patient is seen at bedside and states continues to have numbness over the right side. Denies of new neurological deficits. MRI Brain is reported as left thalamus acute/subacute CVA. Left sparrow radiata remote injury along with nonspecific white matter changes, likely related to small vessel ischemic disease. I personally reviewed the MRI and agree with the report. Objective - Vital Signs Vital signs: Vital Signs Temp 98.0 F 04/24/22 11:23 Pulse 68 04/24/22 11:23 Resp 18 04/24/22 11:23 BP 118/73 04/24/22 11:23 Pulse Ox 97 04/24/22 11:23 FiO2 Intake & Output 04/23/22 04/24/22 04/24/22 18:59 06:59 18:59 Intake Total 1398 480 420 Balance 1398 480 420 Weight 155.582 kg Intake: Oral 1398 480 420 Other: Voiding Method Toilet Toilet # Voids 2 1 - Exam GENERAL: The patient is lying in bed and is not in acute distress. NEUROLOGICAL: Higher mental function: The patient is awake, alert, oriented to self, place and time. Patient is following commands. No aphasia and no neglect. Cranial nerves: The pupils are round, equal and reactive to light and accommodation. Visual purvis are full to confrontation throughout. Extraocular movement is intact no nystagmus is noted. Facial sensation is decreased to touch entire right side according to patient. The facial strength is normal throughout. Hearing is normal bilaterally to hand rub. Tongue is midline and moved [id number] without any difficulty. No dysarthria is noted. Shoulder shrug is normal bilaterally. Motor: The strength is has effort related on the right side but with motivation is 5/5 throughout. Normal tone and bulk. Cerebellum: Normal finger to nose bilaterally. Sensation: Sensation is decreased to touch on the right side. Reflexes (right/left): 2+ throughout Plantars are downgoing bilaterally. Some of the workup during his hospital visit consisted of: Initial serum glucose is 571. AST and ALT is within normal limits. Calcium is within normal limits. Sodium is 130. Initial troponin is 0.039 Possible urinary tract infection on U/A. urine Hcg is not detected. Hemoglobin A1c 13.7 Lipid panel triglycerides 112, cholesterol 153, LDLs 91 and HDL 39. Urine drug screen is positive for cocaine. Rest is noninfected and acetone is negative. CT of the head is reported as no acute intracranial processes. No significant change from prior examination. Redemonstration of few left frontal and left le ntiform nuclei hypodensities which could represent prior lacunar infarct versus demyelination. Further MRI assessment can be considered. CTA head and neck: No evidence of dissection of the cervical internal carotid arteries or vertebral arteries or any evidence of significant stenosis at the carotid bifurcation. No evidence of high-grade stenosis or intracranial aneurysm. MRI Brain is reported as left thalamus acute/subacute CVA. Left sparrow radiata remote injury along with nonspecific white matter changes, likely related to small vessel ischemic disease. I personally reviewed the MRI and agree with the report. 2-D echo was reported as Lumason echo contrast use for improved visualization of the echocardial borders. Technically difficult study. Normal left ventricle size and systolic function. Inability evaluate the valvular structures. Normal left atrial size. - Labs CBC & Chem 7: 04/23/22 08:42 04/23/22 08:42 Labs: Abnormal Lab Results - Last 24 Hours (Table) 04/23/22 04/23/22 04/23/22 Range/Units 08:42 12:53 16:33 POC Glucose (mg/dL) 247 H 245 H (70-110) mg/dL HDL Cholesterol 39.30 L (40.00-60.00) mg/dL 04/23/22 04/24/22 04/24/22 Range/Units 20:02 05:59 11:36 POC Glucose (mg/dL) 123 H 252 H 153 H (70-110) mg/dL HDL Cholesterol (40.00-60.00) mg/dL Assessment and Plan Assessment: Acute to subacute left thalamus stroke (presented with Numbenss over the right side and face for the past two weeks that is intermittent with some weakness of the right). Etiology of stroke is small vessel disease due to her risk factors (uncontrolled DM, tobacco use, medication non-compliance. In addition cocaine use can increase risk of stroke since can cause vasocontriction). Uncontrolled Type 2 diabetes mellitus (HbA1c: 13.7) History of pulmonary embolism Episode of syncope on 07/2021 and she had a 2-1/2 hour EEG on 2021 which was normal (no seizure or discharges). Tobacco use Medication non-compliance Morbid obesity Positive Cocaine use Plan: * In addition to her home Plavix (did not failed medication since misses her medication), I started the patient on aspirin 81 mg daily. Patient to continue dual antiplatelets for 21 days and after that recommend stopping ASA but continue Plavix. If patient is compliant with medication and fails Plavix then can be on ASA or Brilinta down the line. Continue Lipitor 20 mg daily at bedtime for secondary stroke prophylaxis. * PT OT and CASE SUPERVISOR are consulted next on continue neuro checks * On cardiac monitoring * Cardiology team is consulted. Recommend consideration of an event monitor as an outpatient for 30 days. * Patient is on gabapentin 300 mg 1 tablet twice a day and 600 mg by mouth at bedtime as needed in the ED and I can be changed from when necessary to scheduled if the patient continues to have numbness or paresthesia over the right side since thalamus stroking cause thalami pain syndrome * Patient was counseled on the tobacco cessation as well as better management of her sugars at home. Patient was counseled on cessation of cocaine or any other illicit drug use. * We'll defer the rest of the medical management to the primary team * For DVT prophylaxis the patient is on subcu heparin 5000 every 8 hours * Upon discharge recommend the patient to follow up with her neurologist (Dr. Roland's team) as an outpatient within 1-2 weeks The plan is discussed with patient and her nurse. Otherwise no additional neurological workup is needed. We'll sign off. Please reconsult as needed. Time with Patient: Less than 30
--- NOTE | 2022-04-25 02:46 | DS ---
DISCHARGE SUMMARY FINAL DIAGNOSES: 1. Left thalamus subacute infarct and cerebrovascular accident. 2. Substance abuse with cocaine. 3. History of nicotine dependence. DISCHARGE DISPOSITION: The patient discharged in stable condition with guarded prognosis. HISTORY OF PRESENT ILLNESS: This 42-year-old woman with a past medical history, admitted with features of stroke and the patient was treated symptomatically and Neurology saw the patient and cleared for discharge. The patient will be discharged in stable condition with guarded prognosis. PHYSICAL EXAMINATION: VITAL SIGNS: Stable. CARDIOVASCULAR: S1, S2. ABDOMEN: Soft. NERVOUS SYSTEM: No focal deficits. DISCHARGE MEDICATIONS: The patient is being recommended antiplatelet agents and follow up with Dr. Razo and as well as Dr. Roland, who is the neurologist. See orders for further details. MMODL / IJN: [id number] /
== END 2022-04-24 14:45 | disposition home or self-care (01) | DRG 65 ==
LOC: EC 11:28 → 3SCARD 14:23
PROVIDERS: ADMIT Internal Medicine; ATTEND Internal Medicine
DX: I63.9 Cerebral infarction, unspecified (principal); G81.91 Hemiplegia, unspecified affecting right dominant side; Z68.43 Body mass index [BMI] 50.0-59.9, adult; I11.9 Hypertensive heart disease without heart failure; E66.01 Morbid (severe) obesity due to excess calories; E11.65 Type 2 diabetes mellitus with hyperglycemia; F14.10 Cocaine abuse, uncomplicated; Z79.4 Long term (current) use of insulin; Z28.310 Unvaccinated for COVID-19; R29.703 NIHSS score 3; R27.0 Ataxia, unspecified; I67.89 Other cerebrovascular disease; E78.5 Hyperlipidemia, unspecified; F32.9 Major depressive disorder, single episode, unspecified; F41.9 Anxiety disorder, unspecified; I45.10 Unspecified right bundle-branch block; E07.9 Disorder of thyroid, unspecified; F17.210 Nicotine dependence, cigarettes, uncomplicated; Z91.199 Patient's noncompliance with other medical treatment and regimen due to unspecified reason; Z91.14 Patient's other noncompliance with medication regimen; Z71.6 Tobacco abuse counseling; Z79.02 Long term (current) use of antithrombotics/antiplatelets; Z79.890 Hormone replacement therapy; Z79.84 Long term (current) use of oral hypoglycemic drugs; Z79.899 Other long term (current) drug therapy; Z59.00 Homelessness unspecified; Z86.711 Personal history of pulmonary embolism; Z86.16 Personal history of COVID-19; Z56.0 Unemployment, unspecified; Z71.3 Dietary counseling and surveillance
CPT/HCPCS: 36415; 70450; 70496; 70498; 70553; 71046; 80048; 80053; 80061; 80306; 81001; 82009; 83036; 84484; 84703; 85025; 85610; 85730; 93005; 93306; 93351; 96361; 96374; 99291

== ENCOUNTER → 2022-12-29 | Outpatient (CLI) | payer OTHER ==
[2022-12-29 11:31] LABS: Chol/HDL Ratio 2.87 Ratio; LDL Cholesterol,Calculated 65.8 mg/dL (0.0-131.0); VLDL Calculation 16.94 mg/dL (5.00-40.00)
[2022-12-29 11:32] LABS: ALT 11 U/L (8-44); AST 17 U/L (13-35); Albumin 3.9 d/dL (3.8-4.9); Albumin/Globulin Ratio 1.34 Ratio (1.60-3.17); Alkaline Phosphatase 86 U/L (41-126); BUN/Creat Ratio 11.08 Ratio (12.00-20.00); Blood Urea Nitrogen 13.3 mg/dL (9.0-27.0); Calcium 10.1 mg/dL (8.7-10.3); Carbon Dioxide 24.9 mmol/L (21.6-31.8); Chloride 101 mmol/L (96-109); Globulin 2.9 d/dL (1.6-3.3); Glucose 109 mg/dL (70-110); Sodium 138 mmol/L (135-145); T4, Free (Free Thyroxine) 1.32 ng/dL (0.80-1.80); Total Bilirubin 0.2 mg/dL (0.3-1.2); Total Protein 6.8 d/dL (6.2-8.2)
== END | disposition home or self-care (01) ==
LOC: LABWHC1 07:30
PROVIDERS: ATTEND Internal Medicine
DX: E11.9 Type 2 diabetes mellitus without complications (principal); E03.9 Hypothyroidism, unspecified; E55.9 Vitamin D deficiency, unspecified
CPT/HCPCS: 36415; 80053; 80061; 82306; 83036; 84439; 84443